=== PATIENT | female | born 1945 | race American Indian/Alaskan Native ===

== ENCOUNTER 2019-03-07 14:25 | Emergency (ER) | payer MEDICARE, SELFPAY ==
[2019-03-07 14:26] VITALS: BP 127/64; PULSE 70; RESP 16; TEMP 36.2; O2SAT 99; BMI 33.3
--- NOTE | 2019-03-07 14:30 | NURSING ---
NO OLD EKGS
--- NOTE | 2019-03-07 14:57 | EKG12_ITS ---
Test Reason : CP/WEAKNESS Blood Pressure : / mmHG Vent. Rate : 066 BPM Atrial Rate : 066 BPM P-R Int : 166 ms QRS Dur : 096 ms QT Int : 482 ms P-R-T Axes : 040 029 049 degrees QTc Int : 505 ms Normal sinus rhythm Nonspecific ST abnormality Prolonged QT Abnormal ECG Confirmed by HE YATES ([id number]), film and video editor MICHAEL MUNGUIA ([id number]) on 03/12/2019 2:06:52 PM Referred By: Confirmed By:HE YATES
--- NOTE | 2019-03-07 14:57 | RAD_ITS ---
STUDY: X-RAY CHEST REASON FOR EXAM: Female, 73 years old. Chest pain TECHNIQUE: PA and lateral views of the chest. COMPARISON: None. FINDINGS: The lungs are clear and expanded. There is no demonstrated pleural abnormality. There is moderate cardiac enlargement. Normal mediastinum and carrol. Normal visualized pulmonary arteries. Normal visualized aortic arch and descending thoracic aorta. Normal visualized thoracic spine. Normal visualized ribs, clavicles, and shoulders. There is no demonstrated abnormality of the visualized soft tissue structures of the upper abdomen. RAD/Chest PA and Lateral IMPRESSION: No active disease. Electronically Signed: Aries Stone MD at 16:16 EDT Tel , Service support ,
--- NOTE | 2019-03-07 15:00 | RAD_ITS ---
STUDY: X-RAY - LEFT HUMERUS REASON FOR EXAM: Female, 73 years old. Pain and weakness TECHNIQUE: 2 view(s) of the humerus. COMPARISON: None. FINDINGS: Normal visualized humerus. There is no demonstrated fracture or osseous destructive process. There is no demonstrated soft tissue abnormality. RAD/Humerus min 2 Views IMPRESSION: Normal x-ray examination of the humerus. Electronically Signed: Aries Stone MD at 16:15 EDT Tel , Service support ,
[2019-03-07 15:06] LABS: Absolute Lymphocyte Count 0.51 X10^3/uL (0.83-4.51); Absolute Neutrophil Count 5.4 X10^3/uL (2.0-7.7); Basophil# 0.04 X10^3/uL; Basophil% 0.6 % (0-1); Eosinophils% 1.5 % (0-5); Hematocrit 28.3 % (37-47); Hemoglobin 8.5 g/dL (12.0-15.0); Lymphocyte # 0.51 X10^3/ul (4.0); Lymphocyte % 7.6 % (19-41); Mean Corpuscular Hgb 25.1 pg (27.0-32.0); Mean Corpuscular Volume 83.7 fL (81-99); Mean Platelet Vol. 11.3 fl (6.2-12.0); Monocyte# 0.63 X10^3/uL; Monocyte% 9.4 % (0-10); NRBC Flagged by Analyzer 0 % (0-5); Neutrophil # 5.38 X10^3/uL (2.7-7.7); Neutrophil % 80.2 % (47-70); POSITIVE DIFFERENTIAL YES; Platelet Count 265 K/mm3 (150-450); RBC Distribution Width SD 45.3 fl (35.1-43.9); Red Blood Count 3.38 M/mm3 (4.2-5.4); White Blood Count 6.7 K/mm3 (4.4-11.0)
[2019-03-07 15:20] LABS: Differential Indicated SCAN CRITERIA MET
[2019-03-07 15:33] LABS: Anion Gap 6 (5-15); BUN 18 mg/dL (7-18); BUN/Creat Ratio 12.6 RATIO (10-20); Calcium,Total 8.8 mg/dL (8.5-10.1); Chloride 100 mmol/L (98-107); Creatinine, Serum 1.43 mg/dL (0.55-1.02); EST Glomerular Filtration Rate 38 mL/min (>60); Est Glom Filt Rate - Afr Amer 46 mL/min (>60); Estimated Creatinine Clearance 32.47 ml/min; Glucose 115 mg/dL (74-106); Potassium 3.1 mmol/L (3.5-5.1); Sodium Level 136 mmol/L (136-145)
[2019-03-07 15:36] LABS: Hypochromasia 2+; Platelet Estimate ADEQUATE (ADEQ); Red Cell Morphology N CYTIC NORMAL (NORM C&C)
[2019-03-07] MEDS: Metoclopramide 10 MG/2 ML Vial IV (15:43)
[2019-03-07 16:23] VITALS: BP 144/47; PULSE 59; RESP 18; O2SAT 99
--- NOTE | 2019-03-07 16:50 | CM.ED ---
Social Work Referral: Discharge Planning Informant: Dr. Shepard Met with patient and patient friend in room along with Dr. Shepard. Patient [place] and to be traveling west via RV. Dr. Shepard voicing concern of patient being medically managed while traveling. Patient denies having any medical records with patient. Dr. Shepard unable to compare labs to obtain base line for patient. Patient stating to be from [place] but to have no intentions of returning to [place]. Patient unsure if patient will settle down somewhere out west or not. Patient stating to be staying at the [facility] until April. Dr. Shepard recommending for patient to follow up with curb machine operator and establish a primary care physician for medication and medical management. Patient also not taking medication as prescribed. Patient stating to, forget to take medication. After speaking further with patient this socia worker able to identify that patient has a diagnosis of depression and sometimes just doesn't want to try in regards to taking medication. Patient denies any SI or HI. Patient reporting to have a pill box at home and to be able to fill box on own. This social work specialist encouraging patient to utilize pill box, patient voicing understanding. Patient denies any current triggers. Patient stating that patient son 30 years ago and patient has never gotten over this. This social work specialist normalizing patient emotions and grieving. Patient stating to have limited support and to be traveling out west to see daughters that, supposedly live out west. Patient reporting I have had a lot happen to me throughout life. Patient identifying traveling and art as a main coping skill for patient. This social work specialist encouraging patient to continue to work through current emotions. Patient stating to have friends/support at the [place]. This social work specialist encouraging patient to continue to utilize friends/support system at [facility] for coping as well. Dr. Shepard providing patient with PCP and Professor Of Art to follow up with. Patient plans to return to [facility] with friend. Jaydon ANDERSON, IVETH
--- NOTE | 2019-03-07 17:06 | ED.DCSUM_ITS ---
- ER Visit Summary Date of Service: 03/07/19 Chief Complaint: Left arm pain and chest pain History of Present Illness: The patient is a 73 F who reports that she lives in an and moves about the country. States that her primary care physician is in [place]. She is traveling to [place] and will be in [place] until April. She reports she has left arm pain that began 3 weeks ago. Is a sharp pain is 710 with movement 2 out of 10 rest. She is taking diclofenac without relief. She denies any trauma. No fall, MVA, or change in activity. No numbness or weakness. Patient also reports that she has left-sided chest pain that began 2 to 3 days ago. Is intermittent pain that lasts hours at a time. She describes it as heaviness. Zeta 10 at worst and 4-10 currently. Is worsened by nothing including exertion. States it is relieved by nitroglycerin. Physical Examination: Vitals: Stable. Afebrile. General: Well-nourished and well-developed. Head: Normocephalic atraumatic. Neck: Supple, no lymphadenopathy. No JVD. Nontender. Cardiovascular: Regular rate and rhythm. No murmurs. Respiratory: No respiratory distress. Clear to auscultation bilaterally. Abdominal: Soft, nontender, nondistended, normal bowel sounds. No guarding, rebound, or peritoneal signs. Back: Nontender. Extremities: Mild tenderness palpation over the left biceps. Full range of motion of her left shoulder and elbow without pain. No overlying erythema warmth to suggest infection or septic joint. She is neurovascular intact distally. 2+ radial pulse. No edema. Skin: Normal color, no rash. Neurologic: Alert and oriented ?3. Cranial nerves II through XII are intact. Normal strength and sensation. Psych: Normal affect. Test Results: EKG is sinus at 66 with a QTC of 505. There is no old EKG for comparison. Troponin is negative. Chem-7 shows a potassium 3.1, creatinine 1.43, glucose 115. CBC shows an H&H of 8.5 and 28.3, 7 neutrophils 80, lymphocytes of 8. Chest x-ray shows chronic changes. Left humerus x-ray shows no acute disease. Emergency Department Course and Treatment: I had a prolonged discussion with the patient about her lab results. She has no idea what her last hemoglobin was. She does report she is been told she is anemic in the past. She has no idea what her baseline creatinine is. She was ordered Tylenol which she refused. Treatment Plan: I had a prolonged discussion with the patient that it is not a good idea to take this kind of an approach to her medical care. She has no primary care physician or terminal supervisor cc, despite the fact that she has stents. She has asked for refills for her medications. These medications include Lopressor, Lasix, and Plavix. Given the dates on the bottles it is clear that she is taking these medications inconsistently. She has no medical records with her. At this time I do not believe the patient's pain is cardiac in etiology. However, she was given the name of Dr. Shen to follow-up within 1 week for repeat evaluation of her chest pain. She was given name of Dr. Araiza for a primary care physician to see in 3 to 5 days. I discussed her that I will not prescribe opiate medications for her arm pain. As I do not think that this is appropriate. She was also seen by case management in the emergency department. Return to the emergency department for any worsening symptoms. Disposition: To home in improved and stable condition. Impression: 1. Atypical chest pain. 2. Anemia. 3. Left arm pain. 4. Depression. 5. Medical noncompliance. This note was generated with [employer] dictation software. It may contain incorrect words, spelling, and punctuation that were not noted in review of the chart prior to signing ED Disposition - Plan for ED Patient: Disposition: Home or Assisted Living Instructions: CHEST PAIN, Uncertain Cause, MUSCLE STRAIN, Extremity Referrals: Jh Shen MD [STAFF PHYSICIAN] - 1 Week Dillan Araiza DO [STAFF PHYSICIAN] - 3-5 Days
[2019-03-07 17:29] VITALS: BP 148/57; PULSE 64; RESP 18; O2SAT 99
== END 2019-03-07 17:30 | disposition home or self-care (01) ==
LOC: ED 15:04
PROVIDERS: Emergency Provider Emergency Medicine
DX: R07.89 Other chest pain (principal); D64.9 Anemia, unspecified; M79.602 Pain in left arm; F32.9 Major depressive disorder, single episode, unspecified; Z91.14 Patient's other noncompliance with medication regimen; Z91.19 Patient's noncompliance with other medical treatment and regimen; I10 Essential (primary) hypertension; I25.10 Atherosclerotic heart disease of native coronary artery without angina pectoris; E78.00 Pure hypercholesterolemia, unspecified; J44.9 Chronic obstructive pulmonary disease, unspecified; Z95.5 Presence of coronary angioplasty implant and graft
CPT/HCPCS: 71046; 73060; 80048; 84484; 85025; 93005; 96374; 99284; A4216

== ENCOUNTER 2019-09-10 13:16 | Inpatient (IN) | payer MEDICARE, SELFPAY ==
[2019-09-10] VITALS (11 sets, daily range): BP systolic 102–193; BP diastolic 35–98; PULSE 56–76; RESP 16–30; TEMP 36.1–36.9; O2SAT 95–100; BMI 34.0; BMI 33.2
--- NOTE | 2019-09-10 13:39 | EKG12_ITS ---
Test Reason : CP/SOB Blood Pressure : / mmHG Vent. Rate : 066 BPM Atrial Rate : 066 BPM P-R Int : 192 ms QRS Dur : 088 ms QT Int : 472 ms P-R-T Axes : 053 040 037 degrees QTc Int : 494 ms Normal sinus rhythm Minimal voltage criteria for LVH, may be normal variant Prolonged QT Abnormal ECG Confirmed by YOLA DALE, FAYE ([id number]), editor index RENE GARCIA ([id number]) on 09/12/2019 1:48:48 PM Referred By: ELIZABETH Confirmed By:FAYE ACEVES MD
--- NOTE | 2019-09-10 13:47 | RAD_ITS ---
EXAM DESCRIPTION: PORTABLE AP CHEST CLINICAL HISTORY: 74 years Female, CHEST PAIN, DYSPNEA -- HX OF STENTS CHEST PAIN, DYSPNEA -- HX OF STENTS COMPARISON: Previous chest obtained on 03/07/2019 FINDINGS: The thorax is intact. The heart is mildly enlarged. The mediastinum appears to be within normal limits. A patchy pneumonic infiltrate is noted in the right lung base. The left lung appears to be normal. RAD/Chest 1 View (Portable) IMPRESSION: 1. Mild cardiomegaly 2. Patchy pneumonic infiltrate in the right lung base Electronically Signed: Bart Ingram, at 14:47 EST Tel , Service support ,
[2019-09-10 14:17] LABS: Absolute Lymphocyte Count 0.85 X10^3/uL (0.83-4.51); Absolute Neutrophil Count 5.1 X10^3/uL (2.0-7.7); Basophil# 0.09 X10^3/uL; Basophil% 1.3 % (0-1); Eosinophil# 0.11 X10^3/uL; Eosinophils% 1.6 % (0-5); Hematocrit 30.6 % (37-47); Hemoglobin 8.7 g/dL (12.0-15.0); Lymphocyte # 0.85 X10^3/ul (4.0); Lymphocyte % 12.6 % (19-41); Mean Corp Hgb Conc 28.4 g/dL (32-36); Mean Corpuscular Hgb 22.7 pg (27.0-32.0); Mean Corpuscular Volume 79.9 fL (81-99); Mean Platelet Vol. 11.2 fl (6.2-12.0); Monocyte# 0.54 X10^3/uL; NRBC Flagged by Analyzer 0 % (0-5); Neutrophil # 5.11 X10^3/uL (2.7-7.7); Neutrophil % 76.1 % (47-70); Platelet Count 278 K/mm3 (150-450); RBC Distribution Width CV 15.9 % (11.6-14.6); RBC Distribution Width SD 45.8 fl (35.1-43.9); Red Blood Count 3.83 M/mm3 (4.2-5.4); White Blood Count 6.7 K/mm3 (4.4-11.0)
[2019-09-10 14:24] LABS: Anion Gap 6 (5-15); BUN 13 mg/dL (7-18); BUN/Creat Ratio 11.9 RATIO (10-20); Chloride 101 mmol/L (98-107); Creatinine, Serum 1.09 mg/dL (0.55-1.02); EST Glomerular Filtration Rate 52 mL/min (>60); Est Glom Filt Rate - Afr Amer 63 mL/min (>60); Estimated Creatinine Clearance 41.98 ml/min; Glucose 90 mg/dL (74-106); Potassium 3.6 mmol/L (3.5-5.1); Sodium Level 135 mmol/L (136-145)
[2019-09-10] MEDS: Ipratropium/Albuterol Sulfate 3 ML AMPUL.NEB INHALATION ×2 (14:46→23:10)
--- NOTE | 2019-09-10 14:52 | CT_ITS ---
STUDY: CTA CHEST REASON FOR EXAM: Female, 74 years old. DYSNEA, NAUSEA, HEAVINESS/STABBING CP X 3 DAYS WORSENED TODAY. RADIATION DOSAGE (If Supplied By Facility): CTDIvol = ( 12.62 ) mGy, DLP = ( 563.18 ) mGycm TECHNIQUE: The examination was performed with the intravenous administration of IV 100mL Isovue-370. Post-processing of the angiographic images was performed, with multiplanar reformation and 3D reconstruction. Individualized dose optimization techniques were used for this CT. COMPARISON: None. FINDINGS: Normal enhancement of the main pulmonary artery and right and left pulmonary arteries. Normal enhancement of the bilateral peripheral pulmonary arteries. There is no demonstrated pulmonary embolism. Normal thoracic aorta and visualized great vessels. There is no demonstrated aortic dissection. There is a small pericardial effusion. Normal mediastinum. Normal hilar regions. Normal visualized trachea and bronchi. The lungs are well expanded. Normal pulmonary parenchyma. Large bilateral pleural effusions with bibasilar atelectasis. Normal chest wall structures. Multiple healed bilateral rib fractures. Normal visualized upper abdomen. CT/CTA Chest W/WO Contrast IMPRESSION: 1. Normal CTA chest examination, without a demonstrated pulmonary embolism or arterial dissection. 2. Large bilateral pleural effusions with bibasilar atelectasis. 3. Small pericardial effusion. Electronically Signed: Aries Stone MD at 15:45 EST Tel , Service support ,
--- NOTE | 2019-09-10 16:07 | ED.VIS.GEN ---
History of Present Illness Chief Complaint: Chest Pain Informant: Patient Narrative: Patient presents the emergency department shortness of breath. She notes a chest tightness. Symptoms are worse when she attempts to lay flat. She states she just moved here but had been 1 area before. 1 month ago she states she is in [facility] and states that she was given home oxygen. Unclear of exactly what reason she needed home oxygen. States she wears 3 L. She tells me this after stating that she wears 30 L. She states she has not had any fevers or cough. No swelling of the legs. She does have a history of coronary artery disease but no congestive heart failure. She does take HCTZ. He has a history of asthma and a remote history of smoking. No known malignancy. Reviewing the chart reveals a history of emphysema, congestive heart failure, coronary artery disease. Past Medical History - Allergies and Home Meds Allergies/Adverse Reactions: Allergies No Known Allergies Allergy (Verified 09/10/19 13:21) Primary Care Physician: Deon Alberts MD [Primary Care Provider] - Smoking Status: Former smoker Review of Systems General: Denies: Chills, Fever, Sweats Eyes: Denies: Visual changes - bilaterally, Diplopia ENT: Denies: Rhinorrhea, Sore throat Cardiovascular: Denies: Chest pain, Palpitations Respiratory: Reports: Dyspnea, Dyspnea on exertion, Orthopnea. Denies: Cough Gastrointestinal: Denies: Abdominal pain, Nausea, Vomiting, Diarrhea, Melena, Hematochezia Genitourinary: Denies: Dysuria, Hematuria, Frequency Musculoskeletal: Denies: Back pain, Extremity Pain Skin: Denies: Rash, Wounds Neurological: Denies: Headache, Weakness, Numbness Physical Exam Vital Signs/Narrative: Vital Signs Temp Pulse Resp BP Pulse Ox 09/10/19 15:15 56 L 20 H 175/88 H 96 09/10/19 14:47 76 16 97 09/10/19 13:19 97 F L 69 30 H 193/83 H 99 09/10/19 13:18 193/83 H 09/10/19 13:17 97 F L 69 30 H 99 Inital Vital Signs reviewed: Yes General: Well nourished, Well developed, No Acute Distress Head: Normocephalic, Atraumatic Eyes: Perrl, EOMI ENT: Moist mucous membranes, No rhinorrhea Neck: Supple, Nontender Cardiovascular: Regular rate, Regular rhythm, No murmurs Respiratory: No distress, Decreased Air Movement, Chest tenderness - Upper chest tenderness Abdomen: Soft, Nontender, Nondistended, Normal bowel sounds Back: Nontender, Normal Inspection Extremities: Nontender, No edema Skin: Normal color, No rash Neurological: Alert, Oriented x3, Cranial nerves II-XII grossly intact, Normal Strength, Normal Sensation Psychological: Normal affect, Normal Mood Diagnostic/Tx/Re-eval - Rhythm Strip Rhythm Strip: Sinus Rhythm - EKG demonstrated normal sinus rhythm at a rate of 66. This appears grossly unchanged from 07 March 2019. - Medical Decision Making History is inconsistent. She has bilateral pleural effusions possible pericardial effusion. I do not know if this is CHF related. She is dyspneic at rest. She has home oxygen. Do not have any immediate access to recent echocardiograms or any lung studies. Her plan is to bring into the hospital tried obtain old records from [facility]. ED Disposition - Plan for ED Patient: Disposition: Acute Care Hospital [facility] Diagnosis: Dyspnea, Bilateral pleural effusion Referrals: Deon Alberts MD [Primary Care Provider] -
[2019-09-10 16:35] LABS: AST(SGOT) 10 U/L (15-37); Alanine Aminotransfer ALT/SGPT 17 U/L (13-56); Alkaline Phosphatase 121 U/L (45-117); Globulin 3.4 g/dL (2.2-4.2); Protein, Total 7.4 g/dL (6.4-8.2)
[2019-09-10 16:44] LABS: BNP,B-Type NATRIURETIC PEPTIDE 360.2 pg/mL (0-100)
[2019-09-10] MEDS: Furosemide 100 MG/10 ML Vial 60 MG IV (17:05)
[2019-09-10 17:10] LABS: Prothrombin Time (Protime)PT. 13.3 SECONDS (11.7-14.9)
[2019-09-10 17:11] LABS: Partial Thromboplast Time 27.3 Seconds (24.1-36.2)
--- NOTE | 2019-09-10 17:38 | PCM.HP.STD ---
Problem List (1) CHF exacerbation Status: Acute Qualifiers: Heart failure type: unspecified Qualified Code(s): I50.9 - Heart failure, unspecified (2) Bilateral pleural effusion Status: Acute (3) Pericardial effusion Status: Acute (4) COPD (chronic obstructive pulmonary disease) Status: Chronic Qualifiers: COPD type: unspecified COPD Qualified Code(s): J44.9 - Chronic obstructive pulmonary disease, unspecified (5) Chronic respiratory failure with hypoxia Status: Chronic (6) HTN (hypertension) Status: Chronic Qualifiers: Hypertension type: essential hypertension Qualified Code(s): I10 - Essential (primary) hypertension (7) HLD (hyperlipidemia) Status: Chronic Qualifiers: Hyperlipidemia type: unspecified Qualified Code(s): E78.5 - Hyperlipidemia, unspecified (8) CAD (coronary artery disease) Status: Chronic Qualifiers: Coronary Disease-Associated Artery/Lesion type: unspecified vessel or lesion type [place] vs. transplanted heart: unspecified whether [place] or transplanted heart Associated angina: angina presence unspecified Qualified Code(s): I25.10 - Atherosclerotic heart disease of [place] coronary artery without angina pectoris (9) OLEG (obstructive sleep apnea) Status: Chronic (10) Anxiety and depression Status: Chronic (11) Former tobacco use Status: Acute (12) Dyspnea Status: Chronic History of Present Illness Date of Admission: 09/10/19 Chief Complaint: Dyspnea, orthopnea The patient is a 74 y/o F w/ PMHx: Chronic microcytic anemia, Chronic COPD w/ Chronic Hypoxic Respiratory Failure, History of Prior Heavy Tobacco use, HTN, HLD, CAD s/p PCI x 2 most recently 10/2017, OLEG non-compliant with CPAP, Obesity, Pulmonary HTN, Depression and Anxiety, denied history of CHF although chart reported history prior who presents to the [facility] ED on 09/10/19 with history of recently moving from [place] ~ 1 month prior, notes she had been recently placed on 3L continuous oxygen per her physician although unclear why and not great historian who notes increased dyspnea above baseline over the last 3 days, more severe with any exertion with significant orthopnea although no significant weight gain prompting eventual ED presentation. Work-up in the ED included T 97, heart rate 69, BP initially 193/83, respiratory rate 30, 96% on 2 L nasal cannula, CBC with WC 6.7, hemoglobin six 8.7, platelet 278 with no significant left shift, unremarkable coags, CMP with sodium 135, BUN/creatinine 13/1.09, troponin less than 0.015, BNP 360.2, x-ray with mild cardiomegaly with questionable pneumonic infiltrate-like right lung base however follow-up CTPA with no demonstrated PE or arterial dissection with a large bilateral pleural effusions with bibasilar atelectasis and a small pericardial effusion, EKG was sinus rhythm unchanged from prior following ED visit with no acute evidence of ischemia. Patient states she last had Plavix on 09/09/2019. In the ED following discussions with the ED physician patient administered Lasix 60 mg IV x1 as well as DuoNeb therapy x1. Past Medical History Past Medical History (Chronic Problems): Chronic Problems Dyspnea (Chronic) COPD (chronic obstructive pulmonary disease) (Chronic) Chronic respiratory failure with hypoxia (Chronic) HTN (hypertension) (Chronic) HLD (hyperlipidemia) (Chronic) CAD (coronary artery disease) (Chronic) OLEG (obstructive sleep apnea) (Chronic) Anxiety and depression (Chronic) Allergies No Known Allergies Allergy (Verified 09/10/19 13:21) Home Medications: Ambulatory Orders Medication Instructions Recorded Budesonide/Formoterol 160/4.5 2 puff INHALATION BID 09/10/19 [Symbicort 160/4.5 Mcg Inhaler (SP)] Clopidogrel Bisulfate [Plavix] 75 mg PO DAILY 09/10/19 Diclofenac [Voltaren] 75 mg PO DAILY 09/10/19 Hydrochlorothiazide 12.5 mg PO DAILY 09/10/19 Ipratropium/Albuterol Respimat 1 puff INHALATION 4X/DAY 09/10/19 [Combivent Respimat Inhal Naselle] Metoprolol Tartrate [Lopressor 25 mg PO DAILY 09/10/19 (Beta Roni)] Nitroglycerin 0.4 mg SL PRN PRN 09/10/19 Omeprazole 40 mg PO DAILY 09/10/19 Paroxetine [Paxil] 20 mg PO DAILY 09/10/19 Ranitidine [Zantac] 150 mg PO DAILY 09/10/19 Surgical History: - - PCI x2 most recently 10/2017, tonsillectomy, appendectomy, cholecystectomy, hysterectomy. 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 Smoking Status: Former smoker - Quit cigarette tobacco usage approximately 30 years prior with prior to this a 3 pack/day history since she was in her late 20s. Tobacco Use: Non-smoker Alcohol: None Drugs: None - *Family History Maternal History Items: - - Patient notes a maternal family history of heart disease as well as cancer, notes unclear of cancer type, past when she was only 5 years old. Paternal History Items: - - Patient notes a paternal family history of heart disease as well as cancer, specifically stomach cancer. Review of Systems Constitutional: Reports: Malaise, Weakness, Fatigue. Denies: Anorexia, Chills, Fever, Weight Change HEENT: Denies: Head Aches, Sinus Congestion, Sinus Drainage Cardiovascular: Reports: Edema, Orthopnea. Denies: Chest Pain, Chest Pressure, Chest Tightness, Heaviness, Light Headedness, Palpitations, Syncope Respiratory: Denies: Cough, Shortness of breath at rest, Sputum production Gastrointestinal: Denies: Abdominal Pain, Nausea, Vomiting Genitourinary: Denies: Dysuria Musculoskeletal: Reports: Back Pain, Joint Pain. Denies: Joint Tenderness Skin: Denies: Rash, Wounds Neurological: Denies: Numbness, Tingling, Focal weakness Psychiatric: Reports: Anxiety, Depression. Denies: Homicidal Ideations, Suicidal Ideations Hematologic/ Lymphatic: Reports: Anemia, Easy Bruising, Easy Bleeding VTE Information - Inpt Only VTE Present on Admission: No VTE Mechan Device Prophylaxis: SCD's VTE Pharm Prophylaxis ordered?: No Reason prophylaxis not ordered:: Medical Contraindication Patient Problems: Active and Suspected Problems Bilateral pleural effusion (Acute) Pericardial effusion (Acute) Former tobacco use (Acute) CHF exacerbation (Acute) Subjective: Seated upright in ED bed, fatigued appearance, mildly increased respiratory rate, worse with exertion. Objective: Physical Examination: General: awake, alert, oriented x 3 and cooperative, seated upright in ED bed, fatigued appearance, no obvious distress but still increased respiratory rate. Skin: normal color, turgor, no icterus, cyanosis. HEENT: AT/NC, EOMI, PERRLA, mildly dry MM, no carotid bruits, difficult to discern JVD secondary to thickened neck. Lungs: Significantly diminished breath sounds throughout, greater bilateral bases, mild rales bases, no obvious rhonchi or wheezing, mildly increased respiratory rate but no significant distress noted. Heart: Bradycardic with regular rhythm; no gallop, rub audible. Abdomen: soft, obese, NTTP, ND, normal BS, no HSM. Extremities: no cyanosis, clubbing, mild ankle nonpitting edema. Neurological: patient awake, alert, oriented x 3; cognitive function intact; pupils equally reactive to light and accomodation; cranial nerves II-XII grossly normal, moving all 4 extremities, no focal deficits, strength severely global decrease secondary to acute presentation. Psychiatric: affect appears fatigued, no acute evidence of depressive or anxiety feelings. - Physical Exam Vitals/I&O's: Vital Signs Temp Pulse Resp BP Pulse Ox 97 F L 61 20 H 185/98 H 100 09/10/19 13:19 09/10/19 17:06 09/10/19 17:06 09/10/19 16:18 09/10/19 17:06 Oxygen Flow Rate (L/min) 2 Oxygen Delivery Method Nasal Cannula Weight: 204 lb 9.423 oz Body Mass Index (BMI) 34.0 Laboratory Results 09/10/19 11:57: WBC 6.7, RBC 3.83 L, Hgb 8.7 L, Hct 30.6 L, MCV 79.9 L, MCH 22.7 L, MCHC 28.4 L, RDW Std Deviation 45.8 H, RDW Coeff of Ganesh 15.9 H, Plt Count 278, MPV 11.2, Immature Gran % (Auto) 0.400, Neut % (Auto) 76.1 H, Lymph % (Auto) 12.6 L, Green % (Auto) 8.0, Eos % (Auto) 1.6, Baso % (Auto) 1.3 H, Absolute Neuts (auto) 5.1, Absolute Lymphs (auto) 0.85, Nucleated RBC % 0 09/10/19 11:57: Sodium 135 L, Potassium 3.6, Chloride 101, Carbon Dioxide 28.0, Anion Gap 6, BUN 13, Creatinine 1.09 H, Estim Creat Clear Calc 41.98, Est GFR (MDRD) Af Amer 63, Est GFR (MDRD) Non-Af 52 L, BUN/Creatinine Ratio 11.9, Glucose 90, Calcium 9.0, Troponin I < 0.015 09/10/19 11:57: Total Bilirubin 0.70, Direct Bilirubin 0.10, AST 10 L, ALT 17, Alkaline Phosphatase 121 H, Total Protein 7.4, Albumin 4.0, Globulin 3.4 09/10/19 11:57: B-Natriuretic Peptide 360.2 H 09/10/19 15:12: PT 13.3, INR 1.0, APTT 27.3 Assessment/Plan All Active Problems Bilateral pleural effusion (Acute) Pericardial effusion (Acute) Former tobacco use (Acute) CHF exacerbation (Acute) The patient is a 74 y/o F w/ PMHx: Chronic microcytic anemia, Chronic COPD w/ Chronic Hypoxic Respiratory Failure, History of Prior Heavy Tobacco use, HTN, HLD, CAD s/p PCI x 2 most recently 10/2017, OLEG non-compliant with CPAP, Obesity, Pulmonary HTN, Depression and Anxiety, denied history of CHF although chart reported history prior who presents to the [facility] ED on 09/10/19 with history of recently moving from [place] ~ 1 month prior, notes she had been recently placed on 3L continuous oxygen per her physician although unclear why and not great historian who notes increased dyspnea above baseline over the last 3 days, more severe with any exertion with significant orthopnea although no significant weight gain prompting eventual ED presentation. 1. Dyspnea secondary to Bilateral Large Pleural Effusions and Small Pericardial Effusion, complicated by underlying chronic COPD with chronic hypoxic respiratory failure, questionable CHF Exacerbation, Unclear Type: Patient administered IV lasix in the ED, will admit to PCU, maintain on cardiac telemetry, obtain cardiac enzyme series, obtain serial EKGs, continue IV lasix diuresis pending ability for thoracentesis especially given Plavix usage, monitor I/Os, maintain on intake restriction, continue medical therapy w/ metoprolol, not on DIEGO inhibitor or ARB, not on statin therapy. Will obtain TSH and magnesium level. Will obtain echocardiogram. Will request a.m. thoracentesis with diagnostic assessment labs with n.p.o. status after midnight if amenable given Plavix use as last 09/09/2019; however, may necessitate transition to 09/12/2019. BNP not markedly elevated, not markedly elevated suspicion for underlying failure but given presentation will continue evaluation in addition to attempted thoracentesis. 2. Chronic COPD w/ Chronic Hypoxic Respiratory Failure: Will maintain on oxygen with wean as tolerated to room air/home oxygen supplementation, continue ATC duonebs, PRN albuterol, HOB, IS parameters. 3. CAD: Status post PCI x2 most recently 10/2017, will continue metoprolol, not on statin therapy, temporarily holding Plavix for planned thoracentesis, resume once appropriate. 4. Chronic microcytic anemia: Patient hemoglobin 8.7, similar prior, MCV 79.9, not on iron supplementation, will obtain iron panel, ferritin level. 5. Anxiety and depression: We will continue home Paxil regimen. 6. Hypertension: Continue home regimen including metoprolol, PRN hydralazine. 7. Hyperlipidemia: Not on regimen, obtain FLP in AM. 8. Obesity: Weight loss and lifestyle changes encouraged. 9. OLEG: Noncompliant with CPAP, offered and declined upon presentation. 10. Obesity: Weight loss and lifestyle changes encouraged. 11. GERD: We will continue patient home PPI. 12. DVT prophylaxis: SCDs, defer chemoprophylaxis for planned thoracentesis as noted, if continued hold consider initiation. 13. CODE status: Patient ISI is her good friend Melia and living will is currently in place. Discussed CODE status at length including difference between FULL code, DNR-CCA and DNR-CC status. Following discussions about the differences in these status, requested DNR CCA, no intubation status. Advanced Care Planning Face to Face Time: 16 minutes. Code Visit Inpatient E&M: 83687 Init Hosp L3 Procedures: 25330 Advncd Care Plan 30 Min
--- NOTE | 2019-09-10 17:59 | ECHOD_ITS ---
Reason For Study: CHF Procedure This was a 2D Doppler, Color Flow transthoracic echocardiogram. The exam was of adequate technical quality. Exam performed portable in patient room. Left Ventricle Normal LV size. Mild concentric left ventricular hypertrophy. Left ventricular systolic function is normal. The estimated ejection fraction is 60 %. There is evidence of diastolic dysfunction. No regional wall motion abnormalities noted. Right Ventricle Normal RV size. Normal systolic function. Atria The left atrium is mildly enlarged. Normal right atrium. No doppler evidence for ASD. Mitral Valve There is no mitral annular calcification. Normal mitral valve. Mild (1+) mitral valve insufficiency. Tricuspid Valve Normal tricuspid valve. Mild to moderate (1-2+) tricuspid valve insufficiency. Right ventricular systolic pressure estimated to be 41 mmHg. Aortic Valve Trisinus/trileaflet aortic valve. Mild focal aortic valve calcification. Mild aortic stenosis. Mild (1+) aortic valve insufficiency. Pulmonic Valve The pulmonic valve is not well visualized. Trivial pulmonic valve insufficiency. Great Vessels Normal sized aortic root. Pericardium/Pleural Trivial to small pericardial effusion. There are no echocardiographic indications of cardiac tamponade. MMode/2D Measurements & Calculations LVIDd: 4.8 cm IVSd: 1.4 cm LVOT diam: 2.0 cm LVIDs: 3.2 cm LVPWd: 1.4 cm LVOT area: 3.1 cm2 RVDd: 4.2 cm FS: 34.5 % LA dimension: 4.3 cm LAV(MOD-bp): 80.9 ml LA A4 area: 24.0 cm2 LAV(MOD-bp) Indexed: 41.5 ml/m2 LAV(MOD-sp2): 78.0 ml LAV(MOD-sp4): 72.0 ml RA A4 area: 21.3 cm2 Time Measurements MV dec time: 0.38 sec Doppler Measurements & Calculations MV E max arsenio: 59.1 cm/sec Lat Peak E' Arsenio: 5.0 cm/sec Med Peak E' Arsenio: 4.0 cm/sec MV A max arsenio: 71.6 cm/sec E/E' lat: 11.9 E/E' med: 14.8 MV E/A: 0.83 MV V2 max: 80.9 cm/sec MV P1/2t max arsenio: 68.7 cm/sec Ao V2 max: 322.9 cm/sec MV max P.6 mmHg MV P1/2t: 117.1 msec Ao max P.7 mmHg MV V2 mean: 43.8 cm/sec MV dec slope: 171.8 cm/sec2 Ao V2 mean: 198.0 cm/sec MV mean P.89 mmHg Ao mean P.0 mmHg MV V2 VTI: 24.6 cm MVA(P1/2t): 1.9 cm2 Ao V2 VTI: 72.5 cm MVA(VTI): 3.7 cm2 EDGAR(I,D): 1.3 cm2 EDGAR(V,D): 1.4 cm2 AI max arsenio: 391.0 cm/sec LV V1 max: 142.7 cm/sec SV(LVOT): 91.3 ml AI max P.5 mmHg LV V1 max P.1 mmHg LV V1 mean P.3 mmHg AI dec slope: 243.3 cm/sec2 LV V1 mean: 81.2 cm/sec AI P1/2t: 470.7 msec LV V1 VTI: 29.3 cm PA V2 max: 120.4 cm/sec TR max arsenio: 309.1 cm/sec TR max P.2 mmHg Interpretation Summary Left ventricular systolic function is normal. The estimated ejection fraction is 60 %. Mild concentric left ventricular hypertrophy. The left atrium is mildly enlarged. Mild (1+) mitral valve insufficiency. Mild to moderate (1-2+) tricuspid valve insufficiency. Mild aortic stenosis. Mild (1+) aortic valve insufficiency. Trivial pulmonic valve insufficiency. Trivial to small pericardial effusion. There are no echocardiographic indications of cardiac tamponade. Right ventricular systolic pressure estimated to be 41 mmHg. There is evidence of diastolic dysfunction. Ordering Physician: Chelle Roman Referring Physician: Jayce Alberts Performed By: Steve Gonzalez RCS
[2019-09-10 18:33] LABS: Magnesium 2.2 mg/dL (1.6-2.6); Thyroid Stim Hormone (TSH) 2.67 uIU/mL (0.358-3.74)
[2019-09-10 19:06] LABS: ALB/GLOB Ratio 1.2 RATIO (0.9-2.4); Ferritin 14 ng/mL (8-252); Globulin 3.3 g/dL (2.2-4.2); Iron 20 ug/dL (50-170); Iron Binding Capacity,Total 578 ug/dL (250-450); LDH 276 U/L (84-246); PERCENT IRON SATURATION 3.5 % (15.0-55.0); Protein, Total 7.2 g/dL (6.4-8.2)
[2019-09-10] MEDS: Furosemide 40 MG/4 ML Vial IV (21:13)
[2019-09-11] VITALS (14 sets, daily range): BP systolic 113–156; BP diastolic 41–56; PULSE 53–64; RESP 16–22; TEMP 36.7–36.8; O2SAT 93–100
[2019-09-11] MEDS: Morphine 2 MG/ML Syringe IV ×4 (03:23→20:41)
--- NOTE | 2019-09-11 05:55 | EKG12_ITS ---
Test Reason : AM EKG Blood Pressure : / mmHG Vent. Rate : 063 BPM Atrial Rate : 063 BPM P-R Int : 176 ms QRS Dur : 090 ms QT Int : 506 ms P-R-T Axes : 044 037 048 degrees QTc Int : 517 ms Normal sinus rhythm Prolonged QT Abnormal ECG When compared with ECG of 10-SEP-2019 13:21, MANUAL COMPARISON REQUIRED, DATA IS UNCONFIRMED Confirmed by HE YATES ([id number]), commissioning editor MICHAEL MUNGUIA ([id number]) on 09/12/2019 3:15:00 PM Referred By: DR COWAN Confirmed By:HE YATES
--- NOTE | 2019-09-11 07:00 | US_ITS ---
STUDY: SUPERFICIAL ULTRASOUND - REASON FOR EXAM: Female, 74 years old. PLEURAL EFFUSION TECHNIQUE: A superficial ultrasound was performed with real-time and static garner-scale imaging. COMPARISON: Previous CT of the chest obtained on 09/10/2019 FINDINGS: Cervico-occipital and transverse scans of both lung bases were performed utilizing real-time sector scanner. Only a small amount of pleural effusion is noted in both lung bases which has considerably decreased in amount since the previous CT obtained on 09/10/2019. This represents resolving bibasilar pleural effusions and they are so small it would be difficult to aspirate. The patient''s doctor was consulted and the thoracentesis was not performed US/Chest IMPRESSION: Only a tiny amount of pleural effusion was noted in both lung bases which has considerably decreased when compared with the previous CT of the chest obtained on 09/10/2019. For this reason, a thoracentesis was not performed. Electronically Signed: Bart Ingram, at 14:51 EST Tel , Service support ,
[2019-09-11 07:22] LABS: Absolute Lymphocyte Count 0.61 X10^3/uL (0.83-4.51); Absolute Neutrophil Count 3.4 X10^3/uL (2.0-7.7); Basophil# 0.06 X10^3/uL; Basophil% 1.3 % (0-1); Eosinophil# 0.21 X10^3/uL; Eosinophils% 4.4 % (0-5); Hematocrit 27.9 % (37-47); Hemoglobin 7.9 g/dL (12.0-15.0); Lymphocyte # 0.61 X10^3/ul (4.0); Lymphocyte % 12.9 % (19-41); Mean Corp Hgb Conc 28.3 g/dL (32-36); Mean Corpuscular Hgb 22.4 pg (27.0-32.0); Mean Corpuscular Volume 79.3 fL (81-99); Mean Platelet Vol. 12.1 fl (6.2-12.0); Monocyte# 0.48 X10^3/uL; Monocyte% 10.1 % (0-10); NRBC Flagged by Analyzer 0 % (0-5); Neutrophil # 3.35 X10^3/uL (2.7-7.7); Neutrophil % 70.9 % (47-70); Platelet Count 232 K/mm3 (150-450); RBC Distribution Width CV 16.2 % (11.6-14.6); RBC Distribution Width SD 46.9 fl (35.1-43.9); Red Blood Count 3.52 M/mm3 (4.2-5.4); White Blood Count 4.7 K/mm3 (4.4-11.0)
[2019-09-11] MEDS: Ipratropium/Albuterol Sulfate 3 ML AMPUL.NEB INHALATION ×3 (07:24→18:56)
[2019-09-11 07:50] LABS: Anion Gap 6 (5-15); BUN 14 mg/dL (7-18); BUN/Creat Ratio 13.1 RATIO (10-20); Calcium,Total 8.6 mg/dL (8.5-10.1); Chloride 98 mmol/L (98-107); Cholesterol 206 mg/dL (200); Creatinine, Serum 1.07 mg/dL (0.55-1.02); EST Glomerular Filtration Rate 54 mL/min (>60); Est Glom Filt Rate - Afr Amer 65 mL/min (>60); Estimated Creatinine Clearance 42.76 ml/min; Glucose 88 mg/dL (74-106); High Density Lipoprotein 44 mg/dL; Potassium 3.1 mmol/L (3.5-5.1); Sodium Level 138 mmol/L (136-145); Triglycerides 152 mg/dL; Very Low Density Lipoprotein 30 mg/dL (5-40)
[2019-09-11] MEDS: Famotidine 20 MG Tablet PO (09:56)
[2019-09-11] MEDS: Paroxetine 20 MG Tablet PO (09:56)
[2019-09-11] MEDS: Pantoprazole Sodium 40 MG Tablet PO (09:56)
[2019-09-11] MEDS: Metoprolol Tartrate 25 MG Tablet PO (09:57)
[2019-09-11] MEDS: Furosemide 40 MG/4 ML Vial IV ×2 (10:00→18:09)
[2019-09-11] MEDS: 0.9% Saline Lock 10 ML Syringe IV ×6 (10:01→20:41)
[2019-09-11 10:03] LABS: Magnesium 2.1 mg/dL (1.6-2.6)
--- NOTE | 2019-09-11 11:18 | CASEMGMT ---
RN CM Assessment Introduced role of RN CM to patient.? Patient is alert, oriented and able?to participate in RN CM Assessment. ?Care providers, pharmacy, and demographics verified. Presentation: Increased dyspnea above baseline Admit Dx: BL Lg Pleural effusions, ? CHF Re-Admit: No Barriers/Issues: None PCP: Jayce Alberts (1st appt 10/15/2019) Specialists: None [facility]:?Yes ?LNOK: Friend Melia Dudley LW/HPOA: Believes has both HPOA/LW completed, states that HPOA was notarized but only one paper and would like to complete advanced directives again here with SW. MANOLO Bennett made aware. Living Arrangements:? Lives alone in a gnd level apartment, 1 Lg step to enter. ADL?s: Independent with ambulation and ADLs Transportation: Patient drives DME: States she is supposed to be on home O2 3L continuous but states turned in her O2 equipment in [place] before moving. CPAP- missing the bottom and does not use. Nebulizer. HHC: None SNF: None Goal: Home and states needs home O2, In network DME list given, preference Patricia. Denies any other issues, concerns, or needs with DC planning at this time. Aware CM remains available for any emerging needs. DC PLAN: DC with possible home O2. ATIF Wright
--- NOTE | 2019-09-11 11:58 | CASEMGMT ---
Social Work Pt requesting information on advance directives. SW met with pt and explained living will and health care POA. Pt wishing to complete at this time and SW assisted with this. Copy placed on pt chart and original given to patient. AICHA Rodriguez
--- NOTE | 2019-09-11 12:40 | PN_ITS ---
<Roberto Iglesias - Last Filed: 09/11/19 12:40> Patient Problems: Active and Suspected Problems Bilateral pleural effusion (Acute) Pericardial effusion (Acute) Former tobacco use (Acute) CHF exacerbation (Acute) Reason for Visit: Shortness of breath. Subjective: Patient with ongoing shortness of breath, conversational dyspnea, short of breath just lying talking to me in bed. More short of breath up and ambulating. No significant lower extremity edema. She does report orthopnea and paroxysmal nocturnal dyspnea. She has had intermittent chest pain. No palpitations, no lightheadedness or dizziness. She states that she is supposed to be on CPAP, she does not know her settings, and she does not have a functional machine at home. She also states that she was on oxygen before moving to [place] however she did not bring any equipment with her and she has not been using oxygen. Vitals/I&O's: Vital Signs Temp Pulse Resp BP Pulse Ox 98.0 F 57 L 18 119/43 L 95 09/11/19 09:00 09/11/19 11:00 09/11/19 10:46 09/11/19 09:57 09/11/19 10:46 Oxygen Flow Rate (L/min) 3 Oxygen Delivery Method Nasal Cannula Weight: 193 lb 12.581 oz Body Mass Index (BMI) 33.2 Intake and Output for Last 24 Hours 09/09/19 09/10/19 09/11/19 23:59 23:59 23:59 Intake Total 410 / 410 Output Total 950 / 950 Balance -540 / -540 General: Alert, Oriented x3, Cooperative HEENT: Atraumatic, PERRLA, EOMI, Normocephalic Neck: Supple, No JVD, Negative Carotid Bruits Lungs: Clear to auscultation, Diminished, Short of Breath Cardiovascular: Regular rate, No murmurs Abdomen: Bowel Sounds Present, Soft, Non Tender Extremities: No edema, Capillary Refill Less than 3 Seconds Skin: No rashes, No breakdown Musculoskeletal: No Tenderness to Palpation of Joints or Extremities Neurological: Cranial nerves II-XII grossly intact Psych/Mental Status: Normal Affect, Appropriate, Alert and oriented to time, place, person, mood and affect Laboratory Results 09/10/19 11:57: WBC 6.7, RBC 3.83 L, Hgb 8.7 L, Hct 30.6 L, MCV 79.9 L, MCH 22.7 L, MCHC 28.4 L, RDW Std Deviation 45.8 H, RDW Coeff of Ganesh 15.9 H, Plt Count 278, MPV 11.2, Immature Gran % (Auto) 0.400, Neut % (Auto) 76.1 H, Lymph % (Auto) 12.6 L, Pend[place] % (Auto) 8.0, Eos % (Auto) 1.6, Baso % (Auto) 1.3 H, Absolute Neuts (auto) 5.1, Absolute Lymphs (auto) 0.85, Nucleated RBC % 0 09/10/19 11:57: Sodium 135 L, Potassium 3.6, Chloride 101, Carbon Dioxide 28.0, Anion Gap 6, BUN 13, Creatinine 1.09 H, Estim Creat Clear Calc 41.98, Est GFR (MDRD) Af Amer 63, Est GFR (MDRD) Non-Af 52 L, BUN/Creatinine Ratio 11.9, Glucose 90, Calcium 9.0, Troponin I < 0.015 09/10/19 11:57: Total Bilirubin 0.70, Direct Bilirubin 0.10, AST 10 L, ALT 17, Alkaline Phosphatase 121 H, Total Protein 7.4, Albumin 4.0, Globulin 3.4 09/10/19 11:57: B-Natriuretic Peptide 360.2 H 09/10/19 11:57: Magnesium 2.2, TSH 2.67 09/10/19 11:57: Iron 20 L, TIBC 578 H, Iron Saturation 3.5 L, Ferritin 14, Lactate Dehydrogenase 276 H, Total Protein 7.2, Globulin 3.3, Albumin/Globulin Ratio 1.2 09/10/19 15:12: PT 13.3, INR 1.0, APTT 27.3 09/10/19 18:54: Troponin I < 0.015 09/10/19 21:40: Troponin I < 0.015 09/11/19 06:28: WBC 4.7, RBC 3.52 L, Hgb 7.9 L, Hct 27.9 L, MCV 79.3 L, MCH 22.4 L, MCHC 28.3 L, RDW Std Deviation 46.9 H, RDW Coeff of Ganesh 16.2 H, Plt Count 2 32, MPV 12.1 H, Immature Gran % (Auto) 0.400, Neut % (Auto) 70.9 H, Lymph % (Auto) 12.9 L, Pendleton % (Auto) 10.1 H, Eos % (Auto) 4.4, Baso % (Auto) 1.3 H, Absolute Neuts (auto) 3.4, Absolute Lymphs (auto) 0.61 L, Nucleated RBC % 0 09/11/19 06:28: Sodium 138, Potassium 3.1 L, Chloride 98, Carbon Dioxide 34.0 H, Anion Gap 6, BUN 14, Creatinine 1.07 H, Estim Creat Clear Calc 42.76, Est GFR (MDRD) Af Amer 65, Est GFR (MDRD) Non-Af 54 L, BUN/Creatinine Ratio 13.1, Glucose 88, Calcium 8.6, Triglycerides 152, Cholesterol 206 H, LDL Cholesterol 132 H, VLDL Cholesterol 30, HDL Cholesterol 44 09/11/19 06:28: Magnesium 2.1 Current Medications Acetaminophen (Tylenol) 650 mg PO Q6H PRN PRN PRN Reason: Pain Score 1-10/Temp > 100.7 F Al Hydroxide/Mg Hydroxide (Mylanta Ii) 30 ml PO Q6H PRN PRN PRN Reason: Gastric Burning Albuterol Sulfate (Ventolin Aerosols) 2.5 mg INHALATION Q2H PRN PRN PRN Reason: dyspnea, wheezing Albuterol/Ipratropium (Duoneb) 3 ml INHALATION Q4HWA.RT [facility] Last Admin: 09/11/19 10:46 Dose: 3 ml Documented by: Dextrose (D50w Syringe) 0 gm IV X1 PRN; Protocol PRN Reason: Hypoglycemia Famotidine (Pepcid) 20 mg PO DAILY [facility] Last Admin: 09/11/19 09:56 Dose: 20 mg Documented by: Furosemide (Lasix) 40 mg IV BIDLX [facility] Last Admin: 09/11/19 10:00 Dose: 40 mg Documented by: Glucagon () 1 mg IM .X1 PRN PRN Reason: Hypoglycemia Guaifenesin (Robitussin) 20 ml PO Q4H PRN PRN PRN Reason: COUGH Hydralazine HCl (Apresoline Iv) 10 mg IV Q4H PRN PRN PRN Reason: SBP > 160 Iron Sucrose 200 mg/ Sodium (Chloride) 110 mls @ 220 mls/hr IV DAILY [facility] Stop: 09/12/19 10:29 Last Infusion: 09/11/19 11:00 Dose: Infused Documented by: Magnesium Hydroxide (Milk Of Magnesia) 30 ml PO DAILY PRN PRN PRN Reason: Constipation Melatonin (Melatonin) 3 mg PO QHS PRN PRN PRN Reason: INSOMNIA Metoprolol Tartrate (Lopressor (Beta Roni)) 25 mg PO DAILY [facility] Last Admin: 09/11/19 09:57 Dose: 25 mg Documented by: Morphine Sulfate () 2 mg IV Q3H PRN PRN PRN Reason: Pain Score 6-10/10 Last Admin: 09/11/19 07:51 Dose: 2 mg Documented by: Nitroglycerin (Nitrostat) 0.4 mg SUBLINGUAL Q5M PRN PRN Reason: CARDIAC/CHEST PAIN Ondansetron HCl (Zofran) 4 mg IV Q8H PRN PRN PRN Reason: NAUSEA/VOMITING Oxycodone HCl (Oxyir) 5 mg PO Q4H PRN PRN PRN Reason: Pain Score 4-5/10 Pantoprazole Sodium (Protonix) 40 mg PO DAILY [facility] Last Admin: 09/11/19 09:56 Dose: 40 mg Documented by: Paroxetine HCl (Paxil) 20 mg PO DAILY [facility] Last Admin: 09/11/19 09:56 Dose: 20 mg Documented by: Polysaccharide Iron Complex (Ferrex 150) [facility] Potassium Chloride (K-Dur) 20 meq [facility] Prochlorperazine Edisylate (Compazine Iv) 5 mg IV Q4H PRN PRN PRN Reason: Breakthrough Nausea/Vomiting Psyllium Hydrophilic Mucilloid (Metamucil) 1 packet PO DAILY PRN PRN PRN Reason: Constipation Senna/Docusate Sodium (Senokot-S, Luly-Colace) 2 tablet PO BID PRN PRN PRN Reason: Constipation Sodium Chloride () 10 - 40 ml IV UD PRN PRN Reason: SALINE FLUSH Last Admin: 09/11/19 11:48 Dose: 10 ml Documented by: Throat Lozenges (Cepacol Sore Throat Lozenge) 1 lozenge MUCOUS MEM Q2H PRN PRN PRN Reason: SORE THROAT STROKE Vital Signs/Narrative: Vital Signs Temp Pulse Resp BP Pulse Ox 09/11/19 11:00 57 L 09/11/19 10:46 60 18 95 09/11/19 09:57 60 119/43 L 09/11/19 09:00 98.0 F 60 18 119/43 L 100 Medical Necessity - Tobacco Use Smoking Status: Former smoker Tobacco Use: Non-smoker Assessment/Plan All Active Problems Bilateral pleural effusion (Acute) Pericardial effusion (Acute) Former tobacco use (Acute) CHF exacerbation (Acute) Acute hypoxia, chronic hypoxic respiratory failure secondary to acute diastolic CHF exacerbation, underlying pulmonary hypertension-patient has not been using her basal oxygen at home as she recently moved here and did not bring her equipment. She was also noncompliant with CPAP. She does have increased PND and orthopnea, evidence of congestive heart failure. She has significant pleural effusions on imaging and is going for thoracentesis today. Consult pulmonology. Fluid studies ordered. We do not have an echo in system. Troponin negative x3, TSH normal. BNP elevated at 360. Continue Lasix as ordered. Echocardiogram shows an EF of 60%, normal LV size and systolic function, normal RV size and systolic function, negative AST, 1-2+ TVI, RVSP of 41 mmHg, mild aortic valve insufficiency, evidence of diastolic dysfunction. Trivial to small pericardial effusion, no evidence of tamponade. 2. COPD with chronic hypoxic respiratory failure-continue aerosols. I do not feel that this is an acute exacerbation. She has no wheezing. Former Smoker. 3. Iron deficiency anemia-iron studies with significant deficiency, started Venofer and oral iron. Check stool occult blood. LDH is elevated at 276. She is significantly microcytic. 4. Hypertension-stable 5. History of CAD-on metoprolol and Plavix. Plavix held for thoracentesis. 6. Obstructive sleep apnea-again noncompliant with home CPAP. 7. Anxiety and depression-Paxil DVT prophylaxis: On hold for thoracentesis. DC planning: We will need to test for oxygen prior to discharge. She should follow-up with pulmonology as an outpatient. She will need PFTs and a sleep study. This patient was seen by Roberto Iglesias PA-C under the supervision of Dr. Sawyer <Carlos Sawyer - Last Filed: 09/11/19 13:54> Vitals/I&O's: Vital Signs Temp Pulse Resp BP Pulse Ox 98.2 F 59 L 18 140/49 H 95 09/11/19 12:25 09/11/19 12:25 09/11/19 12:25 09/11/19 12:25 09/11/19 10:46 Oxygen Flow Rate (L/min) [1 ( 3 Initial Baseline)] Oxygen Flow Rate (L/min) 3 Oxygen Delivery Method [2] Room Air Oxygen Delivery Method [1 ( Nasal Cannula Initial Baseline)] Oxygen Delivery Method Nasal Cannula Weight: 87.9 kg Body Mass Index (BMI) 33.2 Intake and Output for Last 24 Hours 09/09/19 09/10/19 09/11/19 23:59 23:59 23:59 Intake Total 410 / 410 Output Total 950 / 950 Balance -540 / -540 Laboratory Results 09/10/19 11:57: WBC 6.7, RBC 3.83 L, Hgb 8.7 L, Hct 30.6 L, MCV 79.9 L, MCH 22.7 L, MCHC 28.4 L, RDW Std Deviation 45.8 H, RDW Coeff of Ganesh 15.9 H, Plt Count 278, MPV 11.2, Immature Gran % (Auto) 0.400, Neut % (Auto) 76.1 H, Lymph % (Auto) 12.6 L, [place]end[place] % (Auto) 8.0, Eos % (Auto) 1.6, Baso % (Auto) 1.3 H, Absolute Neuts (auto) 5.1, Absolute Lymphs (auto) 0.85, Nucleated RBC % 0 09/10/19 11:57: Sodium 135 L, Potassium 3.6, Chloride 101, Carbon Dioxide 28.0, Anion Gap 6, BUN 13, Creatinine 1.09 H, Estim Creat Clear Calc 41.98, Est GFR (MDRD) Af Amer 63, Est GFR (MDRD) Non-Af 52 L, BUN/Creatinine Ratio 11.9, Glucose 90, Calcium 9.0, Troponin I < 0.015 09/10/19 11:57: Total Bilirubin 0.70, Direct Bilirubin 0.10, AST 10 L, ALT 17, Alkaline Phosphatase 121 H, Total Protein 7.4, Albumin 4.0, Globulin 3.4 09/10/19 11:57: B-Natriuretic Peptide 360.2 H 09/10/19 11:57: Magnesium 2.2, TSH 2.67 02/24/20 11:57: Iron 20 L, TIBC 578 H, Iron Saturation 3.5 L, Ferritin 14, Lactate Dehydrogenase 276 H, Total Protein 7.2, Globulin 3.3, Albumin/Globulin Ratio 1.2 09/10/19 15:12: PT 13.3, INR 1.0, APTT 27.3 09/10/19 18:54: Troponin I < 0.015 09/10/19 21:40: Troponin I < 0.015 09/11/19 06:28: WBC 4.7, RBC 3.52 L, Hgb 7.9 L, Hct 27.9 L, MCV 79.3 L, MCH 22.4 L, MCHC 28.3 L, RDW Std Deviation 46.9 H, RDW Coeff of Ganesh 16.2 H, Plt Count 232, MPV 12.1 H, Immature Gran % (Auto) 0.400, Neut % (Auto) 70.9 H, Lymph % (Auto) 12.9 L, [place]end[place] % (Auto) 10.1 H, Eos % (Auto) 4.4, Baso % (Auto) 1.3 H, Absolute Neuts (auto) 3.4, Absolute Lymphs (auto) 0.61 L, Nucleated RBC % 0 09/11/19 06:28: Sodium 138, Potassium 3.1 L, Chloride 98, Carbon Dioxide 34.0 H, Anion Gap 6, BUN 14, Creatinine 1.07 H, Estim Creat Clear Calc 42.76, Est GFR (MDRD) Af Amer 65, Est GFR (MDRD) Non-Af 54 L, BUN/Creatinine Ratio 13.1, Glucose 88, Calcium 8.6, Triglycerides 152, Cholesterol 206 H, LDL Cholesterol 132 H, VLDL Cholesterol 30, HDL Cholesterol 44 09/11/19 06:28: Magnesium 2.1 Current Medications Acetaminophen (Tylenol) 650 mg PO Q6H PRN PRN PRN Reason: Pain Score 1-10/Temp > 100.7 F Al Hydroxide/Mg Hydroxide (Mylanta Ii) 30 ml PO Q6H PRN PRN PRN Reason: Gastric Burning Albuterol Sulfate (Ventolin Aerosols) 2.5 mg INHALATION Q2H PRN PRN PRN Reason: dyspnea, wheezing Albuterol/Ipratropium (Duoneb) 3 ml INHALATION Q4HWA.RT [facility] Last Admin: 09/11/19 10:46 Dose: 3 ml Documented by: Dextrose (D50w Syringe) 0 gm IV X1 PRN; Protocol PRN Reason: Hypoglycemia Famotidine (Pepcid) 20 mg PO DAILY [facility] Last Admin: 09/11/19 09:56 Dose: 20 mg Documented by: Furosemide (Lasix) 40 mg IV BIDLX [facility] Last Admin: 09/11/19 10:00 Dose: 40 mg Documented by: Glucagon () 1 mg IM .X1 PRN PRN Reason: Hypoglycemia Guaifenesin (Robitussin) 20 ml PO Q4H PRN PRN PRN Reason: COUGH Hydralazine HCl (Apresoline Iv) 10 mg IV Q4H PRN PRN PRN Reason: SBP > 160 Iron Sucrose 200 mg/ Sodium (Chloride) 110 mls @ 220 mls/hr IV DAILY [facility] Stop: 09/12/19 10:29 Last Infusion: 09/11/19 11:00 Dose: Infused Documented by: Magnesium Hydroxide (Milk Of Magnesia) 30 ml PO DAILY PRN PRN PRN Reason: Constipation Melatonin (Melatonin) 3 mg PO QHS PRN PRN PRN Reason: INSOMNIA Metoprolol Tartrate (Lopressor (Beta Roni)) 25 mg PO DAILY [facility] Last Admin: 09/11/19 09:57 Dose: 25 mg Documented by: Morphine Sulfate () 2 mg IV Q3H PRN PRN PRN Reason: Pain Score 6-10/10 Last Admin: 09/11/19 07:51 Dose: 2 mg Documented by: Nitroglycerin (Nitrostat) 0.4 mg SUBLINGUAL Q5M PRN PRN Reason: CARDIAC/CHEST PAIN Ondansetron HCl (Zofran) 4 mg IV Q8H PRN PRN PRN Reason: NAUSEA/VOMITING Oxycodone HCl (Oxyir) 5 mg PO Q4H PRN PRN PRN Reason: Pain Score 4-5/10 Pantoprazole Sodium (Protonix) 40 mg PO DAILY [facility] Last Admin: 09/11/19 09:56 Dose: 40 mg Documented by: Paroxetine HCl (Paxil) 20 mg PO DAILY [facility] Last Admin: 09/11/19 09:56 Dose: 20 mg Documented by: Polysaccharide Iron Complex (Ferrex 150) [facility] Potassium Chloride (K-Dur) 20 meq PO BIDCM [facility] Prochlorperazine Edisylate (Compazine Iv) 5 mg IV Q4H PRN PRN PRN Reason: Breakthrough Nausea/Vomiting Psyllium Hydrophilic Mucilloid (Metamucil) 1 packet PO DAILY PRN PRN PRN Reason: Constipation Senna/Docusate Sodium (Senokot-S, Luly-Colace) 2 tablet PO BID PRN PRN PRN Reason: Constipation Sodium Chloride () 10 - 40 ml IV UD PRN PRN Reason: SALINE FLUSH Last Admin: 09/11/19 11:48 Dose: 10 ml Documented by: Throat Lozenges (Cepacol Sore Throat Lozenge) 1 lozenge MUCOUS MEM Q2H PRN PRN PRN Reason: SORE THROAT STROKE Vital Signs/Narrative: Vital Signs Temp Pulse Pulse Pulse Resp Resp Resp 09/11/19 12:25 98.2 F 59 L 57 L 18 16 09/11/19 11:00 57 L 09/11/19 10:46 60 18 09/11/19 09:57 60 BP BP BP Pulse Ox 09/11/19 12:25 140/49 H 152/53 H 09/11/19 11:00 09/11/19 10:46 95 09/11/19 09:57 119/43 L Assessment/Plan This patient was seen in conjunction with Roberto Iglesias PA-C . I have independently interviewed and examined the patient and reviewed pertinent historical, laboratory, and other data. Please refer to Roberto Iglesias PA-C note for details of this patient's presentation, findings, and recommendations. I have reviewed Roberto Iglesias PA-C note and concur with documented findings. In brief, patient is a 74-year-old lady who presented with progressive shortness of breath. Imaging studies obtained demonstrated bilateral pleural effusion as well as pulmonary vascular congestion admitted to monitored bed for further management Physical Examination: GENERAL: cooperative HEENT: Atraumatic; EYES; Anicteric, Normal Conjunctiva NECK; supple, normal thyroid, RESPIRATORY: Diminished to auscultation CARDIOVASCULAR: Regular S1 S2, GI: soft, normoactive bowel sounds, : No Renal angle tenderness; EXTREMITIES: edema, no clubbing, MUSCULOSKELETAL: no muscle waisting NEURO: Awake; no lateralizing signs. SKIN: No Rash PSYCH; Flat affect Assessment: 1. Acute respiratory insufficiency 2. Acute on chronic congestive heart failure with preserved ejection fraction 3. Bilateral pleural effusion secondary to congestive heart failure 4. Chronic hypoxic respiratory failure 5. Essential hypertension 6. Coronary artery disease 7. Depression with anxiety 8. Obstructive sleep apnea 9. Obesity with BMI of 32.2 Recommendations: 1. I have discussed the results of my overview and impressions with the patient 2. Options for management were reviewed Code Visit Inpatient E&M: 17403 Subs Hosp L3
--- NOTE | 2019-09-11 13:05 | CON.PCM_ITS ---
Reason for Consult Date of Consultation: 09/11/19 Reason for Consultation: Pleural effusions History of Present Illness: The patient is a 74-year-old female, with a history as outlined below, who initially presented to the emergency department on September 10 with complaints of shortness of breath. The patient recently relocated from [place] to [place]. She does have a history of coronary artery disease status post PCI x2 in the past. The patient also has a reported history of COPD and chronic hypoxemic respiratory failure. She was previously diagnosed with obstructive sleep apnea as well, but is noncompliant with the use of nocturnal CPAP therapy. The patient is a relatively poor historian, but does report that she utilizes Symbicort in her home environment. She does have a smoking history of approximately 60 pack years, having quit completely 30 years ago. 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 On presentation to the emergency department, the patient was noted to be afebrile and hypertensive. She was tachypneic, but was documented to be saturating 99% on room air. Initial laboratory evaluation revealed no evidence of a leukocytosis. The patient does have evidence of microcytic anemia, nevertheless. Coagulation profile was within normal limits. Chemistry profile was unremarkable. Troponin was negative. BNP was elevated to 360. CTA chest revealed no evidence for pulmonary embolism. There was evidence of moderate sized bilateral pleural effusions with associated compressive atelectasis. Past Medical History Past Medical History (Chronic Problems): Chronic Problems Dyspnea (Chronic) COPD (chronic obstructive pulmonary disease) (Chronic) Chronic respiratory failure with hypoxia (Chronic) HTN (hypertension) (Chronic) HLD (hyperlipidemia) (Chronic) CAD (coronary artery disease) (Chronic) OLEG (obstructive sleep apnea) (Chronic) Anxiety and depression (Chronic) Allergies No Known Allergies Allergy (Verified 09/10/19 13:21) Home Medications: Ambulatory Orders Medication Instructions Recorded Budesonide/Formoterol 160/4.5 2 puff INHALATION BID 09/10/19 [Symbicort 160/4.5 Mcg Inhaler (SP)] Clopidogrel Bisulfate [Plavix] 75 mg PO DAILY 09/10/19 Diclofenac [Voltaren] 75 mg PO DAILY 09/10/19 Hydrochlorothiazide 12.5 mg PO DAILY 09/10/19 Ipratropium/Albuterol Respimat 1 puff INHALATION 4X/DAY 09/10/19 [Combivent Respimat Inhal [place]] Metoprolol Tartrate [Lopressor 25 mg PO DAILY 09/10/19 (Beta Roni)] Nitroglycerin 0.4 mg SL PRN PRN 09/10/19 Omeprazole 40 mg PO DAILY 09/10/19 Paroxetine [Paxil] 20 mg PO DAILY 09/10/19 Ranitidine [Zantac] 150 mg PO DAILY 09/10/19 Surgical History: - - PCI x2 most recently 10/2017, tonsillectomy, appendectomy, cholecystectomy, hysterectomy. 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 Smoking Status: Former smoker Tobacco Use: Non-smoker Alcohol: None Drugs: None - *Family History Maternal History Items: - - Patient notes a maternal family history of heart disease as well as cancer, notes unclear of cancer type, past when she was only 5 years old. Paternal History Items: - - Patient notes a paternal family history of heart disease as well as cancer, specifically stomach cancer. Review of Systems Constitutional: Denies: Chills, Fever Eyes: Denies: Blurred vision, Double vision HEENT: Denies: Head Aches, Sinus Congestion, Sinus Drainage Cardiovascular: Denies: Chest Pain, Palpitations Respiratory: Reports: Cough, Shortness of Breath Gastrointestinal: Denies: Abdominal Pain, Nausea, Vomiting Genitourinary: Denies: Dysuria Musculoskeletal: Denies: Joint Pain, Joint Tenderness Skin: Denies: Rash, Wounds Neurological: Denies: Numbness, Tingling, Focal weakness Psychiatric: Denies: Anxiety, Depression, Homicidal Ideations, Suicidal Ideations Hematologic/ Lymphatic: Reports: Anemia Patient Problems: Active and Suspected Problems Bilateral pleural effusion (Acute) Pericardial effusion (Acute) Former tobacco use (Acute) CHF exacerbation (Acute) Objective: The patient's most recent lab work, culture data and imaging studies have all been personally reviewed. Surface echocardiogram revealed mild concentric LVH with an ejection fraction of 60% and stage I diastolic dysfunction. Right ventricular systolic pressure was estimated to be 41 mmHg. - Physical Exam Vitals/I&O's: Vital Signs Temp Pulse Resp BP Pulse Ox 98.2 F 59 L 18 140/49 H 95 09/11/19 12:25 09/11/19 12:25 09/11/19 12:25 09/11/19 12:25 09/11/19 10:46 Oxygen Flow Rate (L/min) [1 ( 3 Initial Baseline)] Oxygen Flow Rate (L/min) 3 Oxygen Delivery Method [2] Room Air Oxygen Delivery Method [1 ( Nasal Cannula Initial Baseline)] Oxygen Delivery Method Nasal Cannula Weight: 193 lb 12.581 oz Body Mass Index (BMI) 33.2 Intake and Output for Last 24 Hours 09/09/19 09/10/19 09/11/19 23:59 23:59 23:59 Intake Total 410 / 410 Output Total 950 / 950 Balance -540 / -540 General: Alert, Cooperative, No apparent distress HEENT: Atraumatic, PERRLA, Normocephalic Oral: No Gingival or Mucosal Lesions/ Ulcerations Neck: Supple, No Nodes, Trachea Midline Lungs: Diminished, - - Faint bibasilar rales Cardiovascular: Regular rate, Regular Rhythm, Normal S1, Normal S2, No murmurs Abdomen: Bowel Sounds Present, Soft, Non Tender Extremities: No clubbing, No cyanosis, No edema Skin: No breakdown Musculoskeletal: No Tenderness to Palpation of Joints or Extremities Lymphatic: No Cervical, Supraclavicular, or Inguinal Adenopathy Neurological: Cranial nerves II-XII grossly intact, Neuro grossly intact Psych/Mental Status: Normal Affect, Appropriate Labs (Last 48 Hours) 09/10/19 09/10/19 09/10/19 11:57 11:57 11:57 WBC 6.7 RBC 3.83 L Hgb 8.7 L Hct 30.6 L MCV 79.9 L MCH 22.7 L MCHC 28.4 L RDW Std Deviation 45.8 H RDW Coeff of Ganesh 15.9 H Plt Count 278 MPV 11.2 Immature Gran % (Auto) 0.400 Neut % (Auto) 76.1 H Lymph % (Auto) 12.6 L [place] % (Auto) 8.0 Eos % (Auto) 1.6 Baso % (Auto) 1.3 H Absolute Neuts (auto) 5.1 Absolute Lymphs (auto) 0.85 Nucleated RBC % 0 PT INR APTT Sodium 135 L Potassium 3.6 Chloride 101 Carbon Dioxide 28.0 Anion Gap 6 BUN 13 Creatinine 1.09 H Estim Creat Clear Calc 41.98 Est GFR (MDRD) Af Amer 63 Est GFR (MDRD) Non-Af 52 L BUN/Creatinine Ratio 11.9 Glucose 90 Calcium 9.0 Magnesium Iron TIBC Iron Saturation Ferritin Total Bilirubin 0.70 Direct Bilirubin 0.10 AST 10 L ALT 17 Alkaline Phosphatase 121 H Lactate Dehydrogenase Troponin I < 0.015 B-Natriuretic Peptide Total Protein 7.4 Albumin 4.0 Globulin 3.4 Albumin/Globulin Ratio Triglycerides Cholesterol LDL Cholesterol VLDL Cholesterol HDL Cholesterol TSH 09/10/19 09/10/19 09/10/19 11:57 11:57 11:57 WBC RBC Hgb Hct MCV MCH MCHC RDW Std Deviation RDW Coeff of Ganesh Plt Count MPV Immature Gran % (Auto) Neut % (Auto) Lymph % (Auto) [place] % (Auto) Eos % (Auto) Baso % (Auto) Absolute Neuts (auto) Absolute Lymphs (auto) Nucleated RBC % PT INR APTT Sodium Potassium Chloride Carbon Dioxide Anion Gap BUN Creatinine Estim Creat Clear Calc Est GFR (MDRD) Af Amer Est GFR (MDRD) Non-Af BUN/Creatinine Ratio Glucose Calcium Magnesium 2.2 Iron 20 L TIBC 578 H Iron Saturation 3.5 L Ferritin 14 Total Bilirubin Direct Bilirubin AST ALT Alkaline Phosphatase Lactate Dehydrogenase 276 H Troponin I B-Natriuretic Peptide 360.2 H Total Protein 7.2 Albumin Globulin 3.3 Albumin/Globulin Ratio 1.2 Triglycerides Cholesterol LDL Cholesterol VLDL Cholesterol HDL Cholesterol TSH 2.67 09/10/19 09/10/19 09/10/19 15:12 18:54 21:40 WBC RBC Hgb Hct MCV MCH MCHC RDW Std Deviation RDW Coeff of Ganesh Plt Count MPV Immature Gran % (Auto) Neut % (Auto) Lymph % (Auto) [place] % (Auto) Eos % (Auto) Baso % (Auto) Absolute Neuts (auto) Absolute Lymphs (auto) Nucleated RBC % PT 13.3 INR 1.0 APTT 27.3 Sodium Potassium Chloride Carbon Dioxide Anion Gap BUN Creatinine Estim Creat Clear Calc Est GFR (MDRD) Af Amer Est GFR (MDRD) Non-Af BUN/Creatinine Ratio Glucose Calcium Magnesium Iron TIBC Iron Saturation Ferritin Total Bilirubin Direct Bilirubin AST ALT Alkaline Phosphatase Lactate Dehydrogenase Troponin I < 0.015 < 0.015 B-Natriuretic Peptide Total Protein Albumin Globulin Albumin/Globulin Ratio Triglycerides Cholesterol LDL Cholesterol VLDL Cholesterol HDL Cholesterol TSH 09/11/19 09/11/19 09/11/19 06:28 06:28 06:28 WBC 4.7 RBC 3.52 L Hgb 7.9 L Hct 27.9 L MCV 79.3 L MCH 22.4 L MCHC 28.3 L RDW Std Deviation 46.9 H RDW Coeff of Ganesh 16.2 H Plt Count 232 MPV 12.1 H Immature Gran % (Auto) 0.400 Neut % (Auto) 70.9 H Lymph % (Auto) 12.9 L [place] % (Auto) 10.1 H Eos % (Auto) 4.4 Baso % (Auto) 1.3 H Absolute Neuts (auto) 3.4 Absolute Lymphs (auto) 0.61 L Nucleated RBC % 0 PT INR APTT Sodium 138 Potassium 3.1 L Chloride 98 Carbon Dioxide 34.0 H Anion Gap 6 BUN 14 Creatinine 1.07 H Estim Creat Clear Calc 42.76 Est GFR (MDRD) Af Amer 65 Est GFR (MDRD) Non-Af 54 L BUN/Creatinine Ratio 13.1 Glucose 88 Calcium 8.6 Magnesium 2.1 Iron TIBC Iron Saturation Ferritin Total Bilirubin Direct Bilirubin AST ALT Alkaline Phosphatase Lactate Dehydrogenase Troponin I B-Natriuretic Peptide Total Protein Albumin Globulin Albumin/Globulin Ratio Triglycerides 152 Cholesterol 206 H LDL Cholesterol 132 H VLDL Cholesterol 30 HDL Cholesterol 44 TSH Clinical Impression(s) from Imaging Studies Chest X-Ray 09/10/19 13:47 IMPRESSION: 1. Mild cardiomegaly 2. Patchy pneumonic infiltrate in the right lung base Electronically Signed: Bart Ingram at 14:47 EST Tel , Service support , Chest CTA 09/10/19 14:52 IMPRESSION: 1. Normal CTA chest examination, without a demonstrated pulmonary embolism or arterial dissection. 2. Large bilateral pleural effusions with bibasilar atelectasis. 3. Small pericardial effusion. Electronically Signed: Aries Stone MD at 15:45 EST Tel , Service support , Current Medications Acetaminophen (Tylenol) 650 mg PO Q6H PRN PRN PRN Reason: Pain Score 1-10/Temp > 100.7 F Al Hydroxide/Mg Hydroxide (Mylanta Ii) 30 ml PO Q6H PRN PRN PRN Reason: Gastric Burning Albuterol Sulfate (Ventolin Aerosols) 2.5 mg INHALATION Q2H PRN PRN PRN Reason: dyspnea, wheezing Albuterol/Ipratropium (Duoneb) 3 ml INHALATION Q4HWA.RT [facility] Last Admin: 09/11/19 10:46 Dose: 3 ml Documented by: Dextrose (D50w Syringe) 0 gm IV X1 PRN; Protocol PRN Reason: Hypoglycemia Famotidine (Pepcid) 20 mg PO DAILY [facility] Last Admin: 09/11/19 09:56 Dose: 20 mg Documented by: Furosemide (Lasix) 40 mg IV BIDLX [facility] Last Admin: 09/11/19 10:00 Dose: 40 mg Documented by: Glucagon () 1 mg IM .X1 PRN PRN Reason: Hypoglycemia Guaifenesin (Robitussin) 20 ml PO Q4H PRN PRN PRN Reason: COUGH Hydralazine HCl (Apresoline Iv) 10 mg IV Q4H PRN PRN PRN Reason: SBP > 160 Iron Sucrose 200 mg/ Sodium (Chloride) 110 mls @ 220 mls/hr IV DAILY [facility] Stop: 09/12/19 10:29 Last Infusion: 09/11/19 11:00 Dose: Infused Documented by: Magnesium Hydroxide (Milk Of Magnesia) 30 ml PO DAILY PRN PRN PRN Reason: Constipation Melatonin (Melatonin) 3 mg PO QHS PRN PRN PRN Reason: INSOMNIA Metoprolol Tartrate (Lopressor (Beta Roni)) 25 mg PO DAILY [facility] Last Admin: 09/11/19 09:57 Dose: 25 mg Documented by: Morphine Sulfate () 2 mg IV Q3H PRN PRN PRN Reason: Pain Score 6-10/10 Last Admin: 09/11/19 07:51 Dose: 2 mg Documented by: Nitroglycerin (Nitrostat) 0.4 mg SUBLINGUAL Q5M PRN PRN Reason: CARDIAC/CHEST PAIN Ondansetron HCl (Zofran) 4 mg IV Q8H PRN PRN PRN Reason: NAUSEA/VOMITING Oxycodone HCl (Oxyir) 5 mg PO Q4H PRN PRN PRN Reason: Pain Score 4-5/10 Pantoprazole Sodium (Protonix) 40 mg PO DAILY [facility] Last Admin: 09/11/19 09:56 Dose: 40 mg Documented by: Paroxetine HCl (Paxil) 20 mg PO DAILY [facility] Last Admin: 09/11/19 09:56 Dose: 20 mg Documented by: Polysaccharide [facility] ([facility]rex 150) [facility] Potassium Chloride (K-Dur) [facility] Prochlorperazine Edisylate (Compazine Iv) 5 mg IV Q4H PRN PRN PRN Reason: Breakthrough Nausea/Vomiting Psyllium Hydrophilic Mucilloid (Metamucil) 1 packet PO DAILY PRN PRN PRN Reason: Constipation Senna/Docusate Sodium (Senokot-S, Luly-Colace) 2 tablet PO BID PRN PRN PRN Reason: Constipation Sodium Chloride () 10 - 40 ml IV UD PRN PRN Reason: SALINE FLUSH Last Admin: 09/11/19 11:48 Dose: 10 ml Documented by: Throat Lozenges (Cepacol Sore Throat Lozenge) 1 lozenge MUCOUS MEM Q2H PRN PRN PRN Reason: SORE THROAT Assessment/Plan All Active Problems Bilateral pleural effusion (Acute) Pericardial effusion (Acute) Former tobacco use (Acute) CHF exacerbation (Acute) RECOMMENDATIONS: 1. Continue scheduled Lasix. 2. Potassium repletion as ordered. 3. Wean supplemental oxygen to maintain saturations at or above 90%. 4. Continue scheduled bronchodilators. 5. The patient will require a re-titration study on an outpatient basis. 6. Start empiric BiPAP therapy 12/6 nightly. This should help assist with diuresis and alveolar recruitment. 7. Recommend outpatient pulmonary follow-up within 2 weeks of discharge. Baseline pulmonary function studies can be obtained at that time. IMPRESSIONS: 1. Acute on chronic hypoxemic respiratory failure Appears to be secondary to decompensated heart failure with preserved ejection fraction. The patient is responding clinically to the use of diuretics, which I would recommend continuing. Attempts at ultrasound-guided thoracentesis was unsuccessful due to limited pleural fluid pocket. Wean supplemental oxygen to maintain saturations at or above 90%. Encourage incentive spirometer use and mobilize patient as tolerated. 2. Self-reported COPD of unknown severity Patient does have an extensive previous smoking history. She is currently utilizing Symbicort on an outpatient basis. For now, agree with continuing scheduled bronchodilators. Upon follow-up in the pulmonary medicine clinic, orders can be placed to obtain baseline pulmonary function studies. 3. History of obstructive sleep apnea The patient does report a longstanding history of OLEG but is currently noncompliant with the use of nocturnal Pap therapy. Her current machine is nonfunctional. Therefore, I would recommend that she undergo a re-titration polysomnogram upon discharge from the hospital. We would then be able to place an order for new equipment for her. 4. Hypokalemia Aggressive electrolyte repletion. 5. History of tobacco dependency, now in remission/hypertension/history of coronary artery disease/anxiety/depression Complicates care, management, recovery and prognosis. Continue home medications as indicated. This note was generated with jslyhl dictation software. It may contain incorrect words, spelling, and punctuation that were not noted in checking the note before signing. Code Visit Inpatient E&M: 07794 Init Hosp L3
[2019-09-12] VITALS (11 sets, daily range): BP systolic 125–129; BP diastolic 40–95; PULSE 57–68; RESP 16–20; TEMP 36.6–36.8; O2SAT 86–99
--- NOTE | 2019-09-12 00:46 | CPS ---
Pt. didn't want to wear BiPaP tonight
[2019-09-12] MEDS: 0.9% Saline Lock 10 ML Syringe IV ×2 (06:50→09:55)
[2019-09-12] MEDS: Morphine 2 MG/ML Syringe IV (06:50)
[2019-09-12 06:54] LABS: Absolute Lymphocyte Count 0.64 X10^3/uL (0.83-4.51); Basophil# 0.06 X10^3/uL; Basophil% 1.1 % (0-1); Eosinophil# 0.34 X10^3/uL; Hematocrit 30.1 % (37-47); Hemoglobin 8.7 g/dL (12.0-15.0); Lymphocyte # 0.64 X10^3/ul (4.0); Lymphocyte % 11.3 % (19-41); Mean Corp Hgb Conc 28.9 g/dL (32-36); Mean Corpuscular Volume 79.4 fL (81-99); Mean Platelet Vol. 11.1 fl (6.2-12.0); Monocyte% 10.6 % (0-10); NRBC Flagged by Analyzer 0 % (0-5); Neutrophil # 3.95 X10^3/uL (2.7-7.7); Neutrophil % 70.1 % (47-70); Platelet Count 231 K/mm3 (150-450); RBC Distribution Width CV 16.2 % (11.6-14.6); Red Blood Count 3.79 M/mm3 (4.2-5.4); White Blood Count 5.6 K/mm3 (4.4-11.0)
[2019-09-12] MEDS: Ipratropium/Albuterol Sulfate 3 ML AMPUL.NEB INHALATION ×2 (07:00→11:12)
[2019-09-12 07:04] LABS: Anion Gap 5 (5-15); BUN 16 mg/dL (7-18); BUN/Creat Ratio 15.4 RATIO (10-20); Calcium,Total 8.7 mg/dL (8.5-10.1); Chloride 98 mmol/L (98-107); Creatinine, Serum 1.04 mg/dL (0.55-1.02); EST Glomerular Filtration Rate 55 mL/min (>60); Est Glom Filt Rate - Afr Amer 67 mL/min (>60); Glucose 92 mg/dL (74-106); Potassium 3.8 mmol/L (3.5-5.1); Sodium Level 135 mmol/L (136-145)
--- NOTE | 2019-09-12 09:50 | CASEMGMT ---
It was brought to SW attention that pt has transportation issues. SW gave pt information on the taxi voucher program with [employer] and other transportation resources in the area. Pt states she may need transportation home. SW explained we should be able to get pt a ride home when pt is discharged if needed. YELENA Jung
[2019-09-12] MEDS: Metoprolol Tartrate 25 MG Tablet PO (09:54)
[2019-09-12] MEDS: Iron Polysaccharide Complex 150 MG CAPSULE PO (09:54)
[2019-09-12] MEDS: Famotidine 20 MG Tablet PO (09:54)
[2019-09-12] MEDS: Furosemide 40 MG/4 ML Vial IV (09:54)
[2019-09-12] MEDS: Paroxetine 20 MG Tablet PO (09:54)
[2019-09-12] MEDS: Pantoprazole Sodium 40 MG Tablet PO (09:54)
--- NOTE | 2019-09-12 09:58 | PN_ITS ---
Patient Problems: Active and Suspected Problems Bilateral pleural effusion (Acute) Pericardial effusion (Acute) Former tobacco use (Acute) CHF exacerbation (Acute) Subjective: The patient was seen and examined at the bedside this morning. Events from the last 24 hours have been reviewed. The patient is currently afebrile, hemody namically stable and maintaining appropriate oxygen saturations on 2 L/min via nasal cannula. Shortness of breath has improved. Objective: The patient's most recent lab work, culture data and imaging studies have all been personally reviewed. Surface echocardiogram revealed mild concentric LVH with an ejection fraction of 60% and diastolic dysfunction. Right ventricular systolic pressure was estimated to be 41 mmHg. - Physical Exam Vitals/I&O's: Vital Signs Temp Pulse Resp BP Pulse Ox 97.9 F 61 18 125/95 H 99 09/12/19 09:40 09/12/19 09:54 09/12/19 09:40 09/12/19 09:40 09/12/19 09:40 Oxygen Flow Rate (L/min) [1 ( 3 Initial Baseline)] Oxygen Flow Rate (L/min) 2 Oxygen Delivery Method [2] Room Air Oxygen Delivery Method [1 ( Nasal Cannula Initial Baseline)] Oxygen Delivery Method Nasal Cannula Weight: 202 lb 9.677 oz Body Mass Index (BMI) 33.2 Intake and Output for Last 24 Hours 09/10/19 09/11/19 09/12/19 23:59 23:59 23:59 Intake Total 1070 / 1070 120 / 120 Output Total 1350 / 1350 Balance -280 / -280 120 / 120 General: Alert, Cooperative, No apparent distress HEENT: Atraumatic, PERRLA, Normocephalic Oral: No Gingival or Mucosal Lesions/ Ulcerations Neck: Supple, No Nodes, Trachea Midline Lungs: No rhonchi, No wheeze, No rales, Diminished Cardiovascular: Regular rate, Regular Rhythm, Normal S1, Normal S2, No murmurs Abdomen: Bowel Sounds Present, Soft, Non Tender Extremities: No clubbing, No cyanosis, No edema Skin: No breakdown Musculoskeletal: No Tenderness to Palpation of Joints or Extremities, No Muscle Wasting Lymphatic: No Cervical, Supraclavicular, or Inguinal Adenopathy Neurological: Cranial nerves II-XII grossly intact, Neuro grossly intact Psych/Mental Status: Alert and oriented to time, place, person, mood and affect Labs (Last 48 Hours) 09/10/19 09/10/19 09/10/19 11:57 11:57 11:57 WBC 6.7 RBC 3.83 L Hgb 8.7 L Hct 30.6 L MCV 79.9 L MCH 22.7 L MCHC 28.4 L RDW Std Deviation 45.8 H RDW Coeff of Ganesh 15.9 H Plt Count 278 MPV 11.2 Immature Gran % (Auto) 0.400 Neut % (Auto) 76.1 H Lymph % (Auto) 12.6 L Coos % (Auto) 8.0 Eos % (Auto) 1.6 Baso % (Auto) 1.3 H Absolute Neuts (auto) 5.1 Absolute Lymphs (auto) 0.85 Nucleated RBC % 0 PT INR APTT Sodium 135 L Potassium 3.6 Chloride 101 Carbon Dioxide 28.0 Anion Gap 6 BUN 13 Creatinine 1.09 H Estim Creat Clear Calc 41.98 Est GFR (MDRD) Af Amer 63 Est GFR (MDRD) Non-Af 52 L BUN/Creatinine Ratio 11.9 Glucose 90 Calcium 9.0 Magnesium Iron TIBC Iron Saturation Ferritin Total Bilirubin 0.70 Direct Bilirubin 0.10 AST 10 L ALT 17 Alkaline Phosphatase 121 H Lactate Dehydrogenase Troponin I < 0.015 B-Natriuretic Peptide Total Protein 7.4 Albumin 4.0 Globulin 3.4 Albumin/Globulin Ratio Triglycerides Cholesterol LDL Cholesterol VLDL Cholesterol HDL Cholesterol TSH 09/10/19 09/10/19 09/10/19 11:57 11:57 11:57 WBC RBC Hgb Hct MCV MCH MCHC RDW Std Deviation RDW Coeff of Ganesh Plt Count MPV Immature Gran % (Auto) Neut % (Auto) Lymph % (Auto) Coos % (Auto) Eos % (Auto) Baso % (Auto) Absolute Neuts (auto) Absolute Lymphs (auto) Nucleated RBC % PT INR APTT Sodium Potassium Chloride Carbon Dioxide Anion Gap BUN Creatinine Estim Creat Clear Calc Est GFR (MDRD) Af Amer Est GFR (MDRD) Non-Af BUN/Creatinine Ratio Glucose Calcium Magnesium 2.2 Iron 20 L TIBC 578 H Iron Saturation 3.5 L Ferritin 14 Total Bilirubin Direct Bilirubin AST ALT Alkaline Phosphatase Lactate Dehydrogenase 276 H Troponin I B-Natriuretic Peptide 360.2 H Total Protein 7.2 Albumin Globulin 3.3 Albumin/Globulin Ratio 1.2 Triglycerides Cholesterol LDL Cholesterol VLDL Cholesterol HDL Cholesterol TSH 2.67 09/10/19 09/10/19 09/10/19 15:12 18:54 21:40 WBC RBC Hgb Hct MCV MCH MCHC RDW Std Deviation RDW Coeff of Ganesh Plt Count MPV Immature Gran % (Auto) Neut % (Auto) Lymph % (Auto) Coos % (Auto) Eos % (Auto) Baso % (Auto) Absolute Neuts (auto) Absolute Lymphs (auto) Nucleated RBC % PT 13.3 INR 1.0 APTT 27.3 Sodium Potassium Chloride Carbon Dioxide Anion Gap BUN Creatinine Estim Creat Clear Calc Est GFR (MDRD) Af Amer Est GFR (MDRD) Non-Af BUN/Creatinine Ratio Glucose Calcium Magnesium Iron TIBC Iron Saturation Ferritin Total Bilirubin Direct Bilirubin AST ALT Alkaline Phosphatase Lactate Dehydrogenase Troponin I < 0.015 < 0.015 B-Natriuretic Peptide Total Protein Albumin Globulin Albumin/Globulin Ratio Triglycerides Cholesterol LDL Cholesterol VLDL Cholesterol HDL Cholesterol TSH 09/11/19 09/11/19 09/11/19 06:28 06:28 06:28 WBC 4.7 RBC 3.52 L Hgb 7.9 L Hct 27.9 L MCV 79.3 L MCH 22.4 L MCHC 28.3 L RDW Std Deviation 46.9 H RDW Coeff of Ganesh 16.2 H Plt Count 232 MPV 12.1 H Immature Gran % (Auto) 0.400 Neut % (Auto) 70.9 H Lymph % (Auto) 12.9 L Coos % (Auto) 10.1 H Eos % (Auto) 4.4 Baso % (Auto) 1.3 H Absolute Neuts (auto) 3.4 Absolute Lymphs (auto) 0.61 L Nucleated RBC % 0 PT INR APTT Sodium 138 Potassium 3.1 L Chloride 98 Carbon Dioxide 34.0 H Anion Gap 6 BUN 14 Creatinine 1.07 H Estim Creat Clear Calc 42.76 Est GFR (MDRD) Af Amer 65 Est GFR (MDRD) Non-Af 54 L BUN/Creatinine Ratio 13.1 Glucose 88 Calcium 8.6 Magnesium 2.1 Iron TIBC Iron Saturation Ferritin Total Bilirubin Direct Bilirubin AST ALT Alkaline Phosphatase Lactate Dehydrogenase Troponin I B-Natriuretic Peptide Total Protein Albumin Globulin Albumin/Globulin Ratio Triglycerides 152 Cholesterol 206 H LDL Cholesterol 132 H VLDL Cholesterol 30 HDL Cholesterol 44 TSH 09/12/19 09/12/19 06:25 06:25 WBC 5.6 RBC 3.79 L Hgb 8.7 L Hct 30.1 L MCV 79.4 L MCH 23.0 L MCHC 28.9 L RDW Std Deviation 46.0 H RDW Coeff of Ganesh 16.2 H Plt Count 231 MPV 11.1 Immature Gran % (Auto) 0.900 Neut % (Auto) 70.1 H Lymph % (Auto) 11.3 L Coos % (Auto) 10.6 H Eos % (Auto) 6.0 H Baso % (Auto) 1.1 H Absolute Neuts (auto) 4.0 Absolute Lymphs (auto) 0.64 L Nucleated RBC % 0 PT INR APTT Sodium 135 L Potassium 3.8 Chloride 98 Carbon Dioxide 32.0 Anion Gap 5 BUN 16 Creatinine 1.04 H Estim Creat Clear Calc 44.00 Est GFR (MDRD) Af Amer 67 Est GFR (MDRD) Non-Af 55 L BUN/Creatinine Ratio 15.4 Glucose 92 Calcium 8.7 Magnesium Iron TIBC Iron Saturation Ferritin Total Bilirubin Direct Bilirubin AST ALT Alkaline Phosphatase Lactate Dehydrogenase Troponin I B-Natriuretic Peptide Total Protein Albumin Globulin Albumin/Globulin Ratio Triglycerides Cholesterol LDL Cholesterol VLDL Cholesterol HDL Cholesterol TSH Clinical Impression(s) from Imaging Studies Chest X-Ray 09/10/19 13:47 IMPRESSION: 1. Mild cardiomegaly 2. Patchy pneumonic infiltrate in the right lung base Electronically Signed: Bart Ingram at 14:47 EST Tel , Service support , Chest CTA 09/10/19 14:52 IMPRESSION: 1. Normal CTA chest examination, without a demonstrated pulmonary embolism or arterial dissection. 2. Large bilateral pleural effusions with bibasilar atelectasis. 3. Small pericardial effusion. Electronically Signed: Aries Stone MD at 15:45 EST Tel , Service support , Chest Ultrasound 09/11/19 07:00 IMPRESSION: Only a tiny amount of pleural effusion was noted in both lung bases which has considerably decreased when compared with the previous CT of the chest obtained on 09/10/2019. For this reason, a thoracentesis was not performed. Electronically Signed: Bart Ingram, at 14:51 EST Tel , Service support , Current Medications Acetaminophen (Tylenol) 650 mg PO Q6H PRN PRN PRN Reason: Pain Score 1-10/Temp > 100.7 F Al Hydroxide/Mg Hydroxide (Mylanta Ii) 30 ml PO Q6H PRN PRN PRN Reason: Gastric Burning Albuterol Sulfate (Ventolin Aerosols) 2.5 mg INHALATION Q2H PRN PRN PRN Reason: dyspnea, wheezing Albuterol/Ipratropium (Duoneb) 3 ml INHALATION Q4HWA.RT [facility] Last Admin: 09/12/19 07:00 Dose: 3 ml Documented by: Dextrose (D50w Syringe) 0 gm IV X1 PRN; Protocol PRN Reason: Hypoglycemia Famotidine (Pepcid) 20 mg PO DAILY [facility] Last Admin: 09/12/19 09:54 Dose: 20 mg Documented by: Furosemide (Lasix) 40 mg IV BIDLX [facility] Last Admin: 09/12/19 09:54 Dose: 40 mg Documented by: Glucagon () 1 mg IM .X1 PRN PRN Reason: Hypoglycemia Guaifenesin (Robitussin) 20 ml PO Q4H PRN PRN PRN Reason: COUGH Hydralazine HCl (Apresoline Iv) 10 mg IV Q4H PRN PRN PRN Reason: SBP > 160 Iron Sucrose 200 mg/ Sodium (Chloride) 110 mls @ 220 mls/hr IV DAILY [facility] Stop: 09/13/19 10:29 Last Admin: 09/12/19 09:55 Dose: 220 mls/hr Documented by: Magnesium Hydroxide (Milk Of Magnesia) 30 ml PO DAILY PRN PRN PRN Reason: Constipation Melatonin (Melatonin) 3 mg PO QHS PRN PRN PRN Reason: INSOMNIA Metoprolol Tartrate (Lopressor (Beta Roni)) 25 mg PO DAILY [facility] Last Admin: 09/12/19 09:54 Dose: 25 mg Documented by: Morphine Sulfate () 2 mg IV Q3H PRN PRN PRN Reason: Pain Score 6-10/10 Last Admin: 09/12/19 06:50 Dose: 2 mg Documented by: Nitroglycerin (Nitrostat) 0.4 mg SUBLINGUAL Q5M PRN PRN Reason: CARDIAC/CHEST PAIN Ondansetron HCl (Zofran) 4 mg IV Q8H PRN PRN PRN Reason: NAUSEA/VOMITING Oxycodone HCl (Oxyir) 5 mg PO Q4H PRN PRN PRN Reason: Pain Score 4-5/10 Pantoprazole Sodium (Protonix) 40 mg PO DAILY [facility] Last Admin: 09/12/19 09:54 Dose: 40 mg Documented by: Paroxetine HCl (Paxil) 20 mg PO DAILY [facility] Last Admin: 09/12/19 09:54 Dose: 20 mg Documented by: [facility]accharide [facility] ([facility] Admin: 09/12/19 09:54 Dose: 150 mg Documented by: Potassium Chloride (K-Dur) [facility] Last Admin: 09/12/19 09:54 Dose: 20 meq Documented by: Prochlorperazine Edisylate (Compazine Iv) 5 mg IV Q4H PRN PRN PRN Reason: Breakthrough Nausea/Vomiting Psyllium Hydrophilic Mucilloid (Metamucil) 1 packet PO DAILY PRN PRN PRN Reason: Constipation Senna/Docusate Sodium (Senokot-S, Luly-Colace) 2 tablet PO BID PRN PRN PRN Reason: Constipation Sodium Chloride () 10 - 40 ml IV UD PRN PRN Reason: SALINE FLUSH Last Admin: 09/12/19 09:55 Dose: 20 ml Documented by: Throat Lozenges (Cepacol Sore Throat Lozenge) 1 lozenge MUCOUS MEM Q2H PRN PRN PRN Reason: SORE THROAT Medical Necessity - Tobacco Use Smoking Status: Former smoker Tobacco Use: Non-smoker Assessment/Plan All Active Problems Bilateral pleural effusion (Acute) Pericardial effusion (Acute) Former tobacco use (Acute) CHF exacerbation (Acute) RECOMMENDATIONS: 1. Continue scheduled Lasix. 2. Wean supplemental oxygen to maintain saturations at or above 90%. 3. Continue scheduled bronchodilators. 4. The patient will require a re-titration study on an outpatient basis. 5. Continue empiric BiPAP therapy 12/6 nightly. This should help assist with diuresis and alveolar recruitment. 6. Recommend outpatient pulmonary follow-up within 2 weeks of discharge. Baseline pulmonary function studies can be obtained at that time. IMPRESSIONS: 1. Acute on chronic hypoxemic respiratory failure Appears to be secondary to decompensated heart failure with preserved ejection fraction. The patient is responding clinically to the use of diuretics, which I would recommend continuing. Attempts at ultrasound-guided thoracentesis was unsuccessful due to limited pleural fluid pocket. Wean supplemental oxygen to maintain saturations at or above 90%. Encourage incentive spirometer use and mobilize patient as tolerated. 2. Self-reported COPD of unknown severity Patient does have an extensive previous smoking history. She is currently utilizing Symbicort on an outpatient basis. For now, agree with continuing kaye eduled bronchodilators. Upon follow-up in the pulmonary medicine clinic, orders can be placed to obtain baseline pulmonary function studies. 3. History of obstructive sleep apnea The patient does report a longstanding history of OLEG but is currently noncompliant with the use of nocturnal Pap therapy. Her current machine is nonfunctional. Therefore, I would recommend that she undergo a re-titration polysomnogram upon discharge from the hospital. We would then be able to place an order for new equipment for her. 4. History of tobacco dependency, now in remission/hypertension/history of coronary artery disease/anxiety/depression Complicates care, management, recovery and prognosis. Continue home medications as indicated. This note was generated with [employer] dictation software. It may contain incorrect words, spelling, and punctuation that were not noted in checking the note before signing. Code Visit Inpatient E&M: 82472 Subs Hosp L2
--- NOTE | 2019-09-12 11:15 | DCINST_ITS ---
- Discharge Diagnoses Current Active Problems: Current Active and Chronic Problems Dyspnea (Chronic) Bilateral pleural effusion (Acute) Pericardial effusion (Acute) COPD (chronic obstructive pulmonary disease) (Chronic) Chronic respiratory failure with hypoxia (Chronic) HTN (hypertension) (Chronic) HLD (hyperlipidemia) (Chronic) CAD (coronary artery disease) (Chronic) OLEG (obstructive sleep apnea) (Chronic) Anxiety and depression (Chronic) Former tobacco use (Acute) CHF exacerbation (Acute) You will use the following diet at home:: Cardiac - 2-3 g sodium daily, 2000 cc fluid daily. Your food should be the consistency of: Regular Your liquids should be the consistency of: Regular/Thin Discharge Activity: Return to Normal Activity Instructions: Thoracentesis Additional Instructions: He need to monitor your weight daily at the same time each day. If you notice a 2 pound weight gain within a 24-hour period or a 4 to 5 pound weight gain in the 7-day. You will need to call your doctor for further recommendations regarding her Lasix. He will need to have a BMP checked in about a week, contact your primary care physician to arrange this. Allergies/Adverse Reactions: Allergies No Known Allergies Allergy (Verified 09/10/19 13:21) Medications to take at Discharge Budesonide/Formoterol 160/4.5 [Symbicort 160/4.5 Mcg Inhaler (SP)] 2 puff INHALATION BID 09/10/19 Clopidogrel Bisulfate [Plavix] 75 mg PO DAILY 09/10/19 Ipratropium/Albuterol Respimat [Combivent Respimat Inhal [place]] 1 puff INHALATION 4X/DAY 09/10/19 Metoprolol Tartrate [Lopressor (beta annabel)] 25 mg PO DAILY 09/10/19 Nitroglycerin 0.4 mg SL PRN PRN 09/10/19 Omeprazole 40 mg PO DAILY 09/10/19 Paroxetine [Paxil] 20 mg PO DAILY 09/10/19 Ranitidine [Zantac] 150 mg PO DAILY 09/10/19 Furosemide [Lasix] 40 mg PO BID #60 tab 09/12/19 Iron Polysaccharide Complex [Ferrex 150] 150 mg PO DAILYCM #30 cap 09/12/19 Potassium Chloride [K-Dur] 20 meq PO BIDCM #60 tab 09/12/19 The following prescriptions were given: Iron Polysaccharide Complex [Ferrex 150] 150 mg PO DAILYCM #30 cap Transmission Status: Pending to [id number] Potassium Chloride [K-Dur] 20 meq PO BIDCM #60 tab Transmission Status: Pending to [id number] Furosemide [Lasix] 40 mg PO BID #60 tab Transmission Status: Pending to [id number] Primary Care Physician: Deon Alberts MD [Primary Care Provider] - Please follow up with your Primary Care Physician in: 1-2 weeks Test Results: Test results from this visit will be discussed in further detail at your follow- up appointment, if applicable. Please Follow Up With: Brandon Monreal DO When: 2 weeks Proposed Discharge Date: 09/12/19
--- NOTE | 2019-09-12 11:52 | CASEMGMT ---
Pt qualifies for home oxygen at this time and preference is for [facility] at this time. Pt needs 4liters with ambulation at this time. Referral faxed to [facility] at this time and call to Jered at [facility] to notify of referral/discharge at this time. Yony DOE CM
--- NOTE | 2019-09-12 12:00 | PHA.DC.MC ---
Pharmacy Service has performed discharge medication reconciliation and counseling for this patient. 1. FUROSEMIDE 40MG PO BID 2. POTASSIUM CHLORIDE 20MEQ PO BIDCM 3. FERREX 150MG PO DAILYCM The patient's discharge medication list was reviewed for discrepancies and discrepancies were resolved. Home Medications Budesonide/Formoterol 160/4.5 [Symbicort 160/4.5 Mcg Inhaler (SP)] 2 puff INHALATION BID 09/10/19 Clopidogrel Bisulfate [Plavix] 75 mg PO DAILY 09/10/19 Ipratropium/Albuterol Respimat [Combivent Respimat Inhal [place]] 1 puff INHALATION 4X/DAY 09/10/19 Metoprolol Tartrate [Lopressor (beta annabel)] 25 mg PO DAILY 09/10/19 Nitroglycerin 0.4 mg SL PRN PRN 09/10/19 Omeprazole 40 mg PO DAILY 09/10/19 Paroxetine [Paxil] 20 mg PO DAILY 09/10/19 Ranitidine [Zantac] 150 mg PO DAILY 09/10/19 Furosemide [Lasix] 40 mg PO BID #60 tab 09/12/19 Iron Polysaccharide Complex [Ferrex 150] 150 mg PO DAILYCM #30 cap 09/12/19 Potassium Chloride [K-Dur] 20 meq PO BIDCM #60 tab 09/12/19 The patient was counseled on the following discharge medications and changes in medications for homegoing were reviewed. The Reason for Use, instructions for use, and potential side effects were reviewed for all new medications. The patient's questions regarding all of their medications were answered. The patient was able to verbally demonstrate an understanding of their discharge medications.
--- NOTE | 2019-09-12 14:14 | DS.PCM_ITS ---
<Roberto Iglesias - Last Filed: 09/12/19 14:20> Discharge Date and Diagnosis Date of Admission: 09/10/19 Date of Discharge: 09/12/19 - Primary Discharge Diagnosis Active and Suspected Problems Acute diastolic congestive heart failure with bilateral pleural effusions Iron deficiency anemia COPD with chronic hypoxic respiratory failure HTN Hx CAD OLEG off CPAP Anx/Depression - Secondary Discharge Diagnosis Chronic Problems Dyspnea (Chronic) COPD (chronic obstructive pulmonary disease) (Chronic) Chronic respiratory failure with hypoxia (Chronic) HTN (hypertension) (Chronic) HLD (hyperlipidemia) (Chronic) CAD (coronary artery disease) (Chronic) OLEG (obstructive sleep apnea) (Chronic) Anxiety and depression (Chronic) Hospital Course and Treatment Imaging Results: RAD/Chest 1 View (Portable) IMPRESSION: 1. Mild cardiomegaly 2. Patchy pneumonic infiltrate in the right lung base CT/CTA Chest W/WO Contrast IMPRESSION: 1. Normal CTA chest examination, without a demonstrated pulmonary embolism or arterial dissection. 2. Large bilateral pleural effusions with bibasilar atelectasis. 3. Small pericardial effusion. Echo: Interpretation Summary Left ventricular systolic function is normal. The estimated ejection fraction is 60 %. Mild concentric left ventricular hypertrophy. The left atrium is mildly enlarged. Mild (1+) mitral valve insufficiency. Mild to moderate (1-2+) tricuspid valve insufficiency. Mild aortic stenosis. Mild (1+) aortic valve insufficiency. Trivial pulmonic valve insufficiency. Trivial to small pericardial effusion. There are no echocardiographic indications of cardiac tamponade. Right ventricular systolic pressure estimated to be 41 mmHg. There is evidence of diastolic dysfunction. US/Chest IMPRESSION: Only a tiny amount of pleural effusion was noted in both lung bases which has considerably decreased when compared with the previous CT of the chest obtained on 09/10/2019. For this reason, a thoracentesis was not performed. Consults: Pulmonary Medicine - [facility] Operations: None Procedures: 2-D Echocardiogram Summary of Care Provided: Hospital course: The patient is a 74 year old F with past medical history of chronic hypoxic respiratory failure secondary to COPD, diastolic congestive heart failure, CAD with prior stents, who presented to the emergency room with complaints of increased shortness of breath, increased PND, increased orthopnea. She had elevated beta natruretic peptide, his chest x-ray showed infiltrates, follow-up CT of the chest demonstrated large bilateral pleural effusions. She was admitted to the PCU and placed on telemetry for acute heart failure exacerbation. She had recently moved here from [place] and did not bring any of her oxygen equipment with her, and did not have a working CPAP machine anymore. With her large pleural effusions we attempted to obtain a thoracentesis and consulted pulmonary medicine. Unfortunately on ultrasound there is not enough fluid to be drained. She did respond well to IV Lasix with 5 pounds fluid loss in the first 24 hours. An echocardiogram was obtained which demonstrated preserved ejection fraction and some underlying pulmonary hypertension. The patient is active at home and in the community and will require oxygen in order to maintain adequate saturations up to 4 L with exertion. She was also noted to be significantly anemic with microcytosis. 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 TSH was normal. Stool occult blood was negative. She was given Venofer and started on oral iron. She was transitioned to oral Lasix and oral potassium supplementation. She was advised to follow-up with pulmonary medicine for PFTs and a new sleep study. She should follow-up with pulmonary in 2 weeks, she will also need to follow-up with the PCP in 1 to 2 weeks. She was discharged home in stable condition. This patient was seen by Roberto Iglesias PA-C under the supervision of Doctor Sawyer. [] - Physical Exam Vitals/I&O's: Vital Signs Temp Pulse Resp BP Pulse Ox 97.9 F 63 16 125/95 H 94 09/12/19 09:40 09/12/19 11:12 09/12/19 11:12 09/12/19 09:40 09/12/19 11:25 Oxygen Flow Rate (L/min) [1 ( 3 Initial Baseline)] Oxygen Flow Rate (L/min) [ 4 AMBULATION with Oxygen] Oxygen Flow Rate (L/min) [ 0 AMBULATING on Room Air] Oxygen Flow Rate (L/min) [At 0 REST on Room Air] Oxygen Flow Rate (L/min) 2 Oxygen Delivery Method [2] Room Air Oxygen Delivery Method [1 ( Nasal Cannula Initial Baseline)] Oxygen Delivery Method Room Air Weight: 202 lb 9.677 oz Body Mass Index (BMI) 33.2 Intake and Output for Last 24 Hours 09/10/19 09/11/19 09/12/19 23:59 23:59 23:59 Intake Total 1070 / 1070 530 / 530 Output Total 1350 / 1350 700 / 700 Balance -280 / -280 -170 / -170 General: Alert, Oriented x3, Cooperative HEENT: Atraumatic, PERRLA, EOMI, Normocephalic Neck: Supple, No JVD, Negative Carotid Bruits Lungs: Clear to auscultation, Diminished Cardiovascular: Regular rate, No murmurs Abdomen: Bowel Sounds Present, Soft, Non Tender Extremities: No edema, Capillary Refill Less than 3 Seconds Skin: No rashes, No breakdown Musculoskeletal: No Tenderness to Palpation of Joints or Extremities Neurological: Cranial nerves II-XII grossly intact Psych/Mental Status: Normal Affect, Appropriate, Alert and oriented to time, place, person, mood and affect Microbiology Past 72 Hours 09/12/19 06:40 Stool Stool Occult Blood (BAKARI) - Final Laboratory Results 09/12/19 06:25: WBC 5.6, RBC 3.79 L, Hgb 8.7 L, Hct 30.1 L, MCV 79.4 L, MCH 23.0 L, MCHC 28.9 L, RDW Std Deviation 46.0 H, RDW Coeff of Ganesh 16.2 H, Plt Count 231, MPV 11.1, Immature Gran % (Auto) 0.900, Neut % (Auto) 70.1 H, Lymph % (Auto) 11.3 L, [place] % (Auto) 10.6 H, Eos % (Auto) 6.0 H, Baso % (Auto) 1.1 H, Absolute Neuts (auto) 4.0, Absolute Lymphs (auto) 0.64 L, Nucleated RBC % 0 09/12/19 06:25: Sodium 135 L, Potassium 3.8, Chloride 98, Carbon Dioxide 32.0, Anion Gap 5, BUN 16, Creatinine 1.04 H, Estim Creat Clear Calc 44.00, Est GFR (MDRD) Af Amer 67, Est GFR (MDRD) Non-Af 55 L, BUN/Creatinine Ratio 15.4, Glucose 92, Calcium 8.7 Current Medications Acetaminophen (Tylenol) 650 mg PO Q6H PRN PRN PRN Reason: Pain Score 1-10/Temp > 100.7 F Al Hydroxide/Mg Hydroxide (Mylanta Ii) 30 ml PO Q6H PRN PRN PRN Reason: Gastric Burning Albuterol Sulfate (Ventolin Aerosols) 2.5 mg INHALATION Q2H PRN PRN PRN Reason: dyspnea, wheezing Albuterol/Ipratropium (Duoneb) 3 ml INHALATION Q4HWA.RT [facility] Last Admin: 09/12/19 11:12 Dose: 3 ml Documented by: Dextrose (D50w Syringe) 0 gm IV X1 PRN; Protocol PRN Reason: Hypoglycemia Famotidine (Pepcid) 20 mg PO DAILY [facility] Last Admin: 09/12/19 09:54 Dose: 20 mg Documented by: Furosemide (Lasix) 40 mg IV BIDLX [facility] Last Admin: 09/12/19 09:54 Dose: 40 mg Documented by: Glucagon () 1 mg IM .X1 PRN PRN Reason: Hypoglycemia Guaifenesin (Robitussin) 20 ml PO Q4H PRN PRN PRN Reason: COUGH Hydralazine HCl (Apresoline Iv) 10 mg IV Q4H PRN PRN PRN Reason: SBP > 160 Iron Sucrose 200 mg/ Sodium (Chloride) 110 mls @ 220 mls/hr IV DAILY [facility] Stop: 09/13/19 10:29 Last Infusion: 09/12/19 10:25 Dose: Infused Documented by: Magnesium Hydroxide (Milk Of Magnesia) 30 ml PO DAILY PRN PRN PRN Reason: Constipation Melatonin (Melatonin) 3 mg PO QHS PRN PRN PRN Reason: INSOMNIA Metoprolol Tartrate (Lopressor (Beta Roni)) 25 mg PO DAILY [facility] Last Admin: 09/12/19 09:54 Dose: 25 mg Documented by: Morphine Sulfate () 2 mg IV Q3H PRN PRN PRN Reason: Pain Score 6-10/10 Last Admin: 09/12/19 06:50 Dose: 2 mg Documented by: Nitroglycerin (Nitrostat) 0.4 mg SUBLINGUAL Q5M PRN PRN Reason: CARDIAC/CHEST PAIN Ondansetron HCl (Zofran) 4 mg IV Q8H PRN PRN PRN Reason: NAUSEA/VOMITING Oxycodone HCl (Oxyir) 5 mg PO Q4H PRN PRN PRN Reason: Pain Score 4-5/10 Pantoprazole Sodium (Protonix) 40 mg PO DAILY [facility] Last Admin: 09/12/19 09:54 Dose: 40 mg Documented by: Paroxetine HCl (Paxil) 20 mg PO DAILY [facility] Last Admin: 09/12/19 09:54 Dose: 20 mg Documented by: Polysaccharide [facility] Admin: 09/12/19 09:54 Dose: 150 mg Documented by: Potassium Chloride (K-Dur) [facility] Last Admin: 09/12/19 09:54 Dose: 20 meq Documented by: Prochlorperazine Edisylate (Compazine Iv) 5 mg IV Q4H PRN PRN PRN Reason: Breakthrough Nausea/Vomiting Psyllium Hydrophilic Mucilloid (Metamucil) 1 packet PO DAILY PRN PRN PRN Reason: Constipation Senna/Docusate Sodium (Senokot-S, Luly-Colace) 2 tablet PO BID PRN PRN PRN Reason: Constipation Sodium Chloride () 10 - 40 ml IV UD PRN PRN Reason: SALINE FLUSH Last Admin: 09/12/19 09:55 Dose: 20 ml Documented by: Throat Lozenges (Cepacol Sore Throat Lozenge) 1 lozenge MUCOUS MEM Q2H PRN PRN PRN Reason: SORE THROAT Discharge Diet: Low fat/ Low Cholesterol, - - 2-3 g Na daily, 2000 cc fluid restriction. Discharge Activity: Return to Normal Activity Home Medications: Medications to take at Discharge Budesonide/Formoterol 160/4.5 [Symbicort 160/4.5 Mcg Inhaler (SP)] 2 puff INHALATION BID 09/10/19 Clopidogrel Bisulfate [Plavix] 75 mg PO DAILY 09/10/19 Ipratropium/Albuterol Respimat [Combivent Respimat Inhal Regent] 1 puff INHALATION 4X/DAY 09/10/19 Metoprolol Tartrate [Lopressor (beta roni)] 25 mg PO DAILY 09/10/19 Nitroglycerin 0.4 mg SL PRN PRN 09/10/19 Omeprazole 40 mg PO DAILY 09/10/19 Paroxetine [Paxil] 20 mg PO DAILY 09/10/19 Ranitidine [Zantac] 150 mg PO DAILY 09/10/19 Furosemide [Lasix] 40 mg PO BID #60 tab 09/12/19 Iron Polysaccharide Complex [Ferrex 150] 150 mg PO DAILY #30 cap 09/12/19 Potassium Chloride [K-Dur] 20 meq PO BIDCM #60 tab 09/12/19 Following Prescrptions Were Given to Patient: Iron Polysaccharide Complex [Ferrex 150] 150 mg PO DAILYCM #30 cap Transmission Status: Received by [id number] Potassium Chloride [K-Dur] 20 meq PO BIDCM #60 tab Transmission Status: Received by [id number] Furosemide [Lasix] 40 mg PO BID #60 tab Transmission Status: Received by [id number] Primary Care Physician: Deon Alberts MD [Primary Care Provider] - Please follow up with your Primary Care Physician in: 1-2 weeks Please Follow Up With: Brandon Monreal DO When: 2 weeks Patient Instructions: Thoracentesis Disposition: Home Minutes spent on discharge:: 35 Patient Condition:: Stable Medical Necessity - Tobacco Use Smoking Status: Former smoker Tobacco Use: Non-smoker Meaningful Use Info Meaningful Use Diagnoses (Choose all that apply): CHF - CHF DIEGO/ARB ordered at discharge?: No Reason DIEGO/ARB not ordered?: Worsening renal function Documented LVEF (%): 60 <Carlos Sawyer - Last Filed: 09/12/19 14:31> Discharge Date and Diagnosis - Secondary Discharge Diagnosis Chronic Problems Dyspnea (Chronic) COPD (chronic obstructive pulmonary disease) (Chronic) Chronic respiratory failure with hypoxia (Chronic) HTN (hypertension) (Chronic) HLD (hyperlipidemia) (Chronic) CAD (coronary artery disease) (Chronic) OLEG (obstructive sleep apnea) (Chronic) Anxiety and depression (Chronic) Hospital Course and Treatment Summary of Care Provided: This patient was seen in conjunction with Roberto Iglesias PA-C . I have independently interviewed and examined the patient and reviewed pertinent historical, laboratory, and other data. Please refer to Roberto Iglesias PA-C note for details of this patient's presentation, findings, and recommendations. I have reviewed Roberto Iglesias PA-C note and concur with documented findings. In brief, patient is a 74-year-old lady who presented with progressive shortness of breath. Imaging studies obtained demonstrated bilateral pleural effusion as well as pulmonary vascular congestion admitted to monitored bed for further management Assessment: 1. Acute respiratory insufficiency 2. Acute on chronic congestive heart failure with preserved ejection fraction 3. Bilateral pleural effusion secondary to congestive heart failure 4. Chronic hypoxic respiratory failure 5. Essential hypertension 6. Coronary artery disease 7. Depression with anxiety 8. Obstructive sleep apnea 9. Obesity with BMI of 32.2 Hospital course as documented above - Physical Exam Vitals/I&O's: Vital Signs Temp Pulse Resp BP Pulse Ox 97.9 F 63 16 125/95 H 94 09/12/19 09:40 09/12/19 11:12 09/12/19 11:12 09/12/19 09:40 09/12/19 11:25 Oxygen Flow Rate (L/min) [1 ( 3 Initial Baseline)] Oxygen Flow Rate (L/min) [ 4 AMBULATION with Oxygen] Oxygen Flow Rate (L/min) [ 0 AMBULATING on Room Air] Oxygen Flow Rate (L/min) [At 0 REST on Room Air] Oxygen Flow Rate (L/min) 2 Oxygen Delivery Method [2] Room Air Oxygen Delivery Method [1 ( Nasal Cannula Initial Baseline)] Oxygen Delivery Method Room Air Weight: 91.9 kg Body Mass Index (BMI) 33.2 Intake and Output for Last 24 Hours 09/10/19 09/11/19 09/12/19 23:59 23:59 23:59 Intake Total 1070 / 1070 530 / 530 Output Total 1350 / 1350 700 / 700 Balance -280 / -280 -170 / -170 Microbiology Past 72 Hours 09/12/19 06:40 Stool Stool Occult Blood (BAKARI) - Final Laboratory Results 09/12/19 06:25: WBC 5.6, RBC 3.79 L, Hgb 8.7 L, Hct 30.1 L, MCV 79.4 L, MCH 23.0 L, MCHC 28.9 L, RDW Std Deviation 46.0 H, RDW Coeff of Ganesh 16.2 H, Plt Count 231, MPV 11.1, Immature Gran % (Auto) 0.900, Neut % (Auto) 70.1 H, Lymph % (Auto) 11.3 L, [place] % (Auto) 10.6 H, Eos % (Auto) 6.0 H, Baso % (Auto) 1.1 H, Absolute Neuts (auto) 4.0, Absolute Lymphs (auto) 0.64 L, Nucleated RBC % 0 09/12/19 06:25: Sodium 135 L, Potassium 3.8, Chloride 98, Carbon Dioxide 32.0, Anion Gap 5, BUN 16, Creatinine 1.04 H, Estim Creat Clear Calc 44.00, Est GFR (MDRD) Af Amer 67, Est GFR (MDRD) Non-Af 55 L, BUN/Creatinine Ratio 15.4, Glucose 92, Calcium 8.7 Code Visit Inpatient E&M: 61321 Disch Hosp
== END 2019-09-12 14:22 | disposition home or self-care (01) | DRG 292 ==
LOC: ED 17:05 → PCU 17:20
PROVIDERS: Physician Assistant; Admitting Provider Family Medicine; Emergency Provider Emergency Medicine; PCP Family Medicine; Visit Provider Internal Medicine
DX: I11.0 Hypertensive heart disease with heart failure (principal); J91.8 Pleural effusion in other conditions classified elsewhere; J96.11 Chronic respiratory failure with hypoxia; J44.9 Chronic obstructive pulmonary disease, unspecified; I50.33 Acute on chronic diastolic (congestive) heart failure; I25.10 Atherosclerotic heart disease of native coronary artery without angina pectoris; E66.9 Obesity, unspecified; K21.9 Gastro-esophageal reflux disease without esophagitis; D50.9 Iron deficiency anemia, unspecified; G47.33 Obstructive sleep apnea (adult) (pediatric); E78.5 Hyperlipidemia, unspecified; F41.8 Other specified anxiety disorders; Z68.33 Body mass index [BMI] 33.0-33.9, adult; Z91.19 Patient's noncompliance with other medical treatment and regimen; Z87.891 Personal history of nicotine dependence; Z95.5 Presence of coronary angioplasty implant and graft
CPT/HCPCS: 36415; 71045; 71275; 76604; 80048; 80061; 80076; 82274; 82728; 83540; 83550; 83615; 83735; 83880; 84156; 84443; 84484; 85025; 85610; 85730; 93005; 93306; 94640; 99285; 99406; J1756; Q9957; Q9967; A4216; J1940

== ENCOUNTER 2019-11-13 12:57 | Emergency (ER) | payer MEDICARE, SELFPAY ==
[2019-09-10 18:11] VITALS: BMI 33.2
[2019-11-13 12:58] VITALS: BP 152/70; PULSE 84; RESP 18; TEMP 36.6; O2SAT 100; BMI 30.7
--- NOTE | 2019-11-13 13:18 | EKG12_ITS ---
Test Reason : Blood Pressure : / mmHG Vent. Rate : 071 BPM Atrial Rate : 071 BPM P-R Int : 180 ms QRS Dur : 086 ms QT Int : 480 ms P-R-T Axes : 022 023 030 degrees QTc Int : 521 ms Normal sinus rhythm Nonspecific ST abnormality Prolonged QT Abnormal ECG Confirmed by HE YATES ([id number]), business editor ALICIA BERGERON ([id number]) on 11/19/2019 2:47:52 PM Referred By: PC Confirmed By:HE YATES
--- NOTE | 2019-11-13 13:18 | RAD_ITS ---
STUDY: X-RAY CHEST REASON FOR EXAM: Female, 74 years old. Increase SOB TECHNIQUE: Single AP portable view of the chest. COMPARISON: Comparison is made with prior study dated September 10, 2019. FINDINGS: EKG electrodes are seen. The lungs are clear and expanded. There is no demonstrated pleural abnormality. There is moderate cardiac enlargement. Prominence of the superior mediastinal region most likely secondary to ectasia of the cervical vessels. Normal visualized pulmonary arteries. There is atherosclerotic tortuosity of the aortic arch and descending thoracic aorta. Normal visualized thoracic spine. Healed right rib fractures. There is no demonstrated abnormality of the visualized soft tissue structures of the upper abdomen. RAD/Chest 1 View (Portable) IMPRESSION: Moderate cardiomegaly. Electronically Signed: Derrick Miller, at 15:28 EDT , Service support ,
--- NOTE | 2019-11-13 13:31 | ED.VIS.GEN ---
History of Present Illness Chief Complaint: Shortness of Breath Narrative: Patient presents with dyspnea for the past 3 days. She has a history of COPD, she is on oxygen at home, she has not increased her oxygen she has been using her nebulizing machine a few times every day. She has no fever or chills she has a cough but no production of sputum. No sick contacts, she was recently admitted for similar symptoms. Past Medical History - Allergies and Home Meds Allergies/Adverse Reactions: Allergies No Known Allergies Allergy (Verified 09/10/19 13:21) Primary Care Physician: Deon Alberts MD [Primary Care Provider] - Past Medical History: - - COPD, coronary disease, hypertension hypercholesterolemia Surgical History: - - PCI x2 most recently 10/2017, tonsillectomy, appendectomy, cholecystectomy, hysterectomy. Smoking Status: Former smoker - Family History Maternal Family History: Reports: - - Patient notes a maternal family history of heart disease as well as cancer, notes unclear of cancer type, past when she was only 5 years old. Paternal Family History: Reports: - - Patient notes a paternal family history of heart disease as well as cancer, specifically stomach cancer. Review of Systems General: Denies: Fever Eyes: Denies: Visual changes - bilaterally Cardiovascular: Denies: Chest pain, Palpitations Respiratory: Reports: Dyspnea, Cough. Denies: Sputum Gastrointestinal: Denies: Abdominal pain, Nausea Genitourinary: Denies: Dysuria Musculoskeletal: Denies: Myalgias, Neck pain Skin: Denies: Rash Neurological: Denies: Headache, Weakness Psych: Denies: Depression Endocrine: Denies: Polyuria Hematologic: Denies: Easy bruising Physical Exam Vital Signs/Narrative: Vital Signs Temp Pulse Resp BP Pulse Ox 11/13/19 12:58 97.9 F 84 18 152/70 H 100 General: Well nourished, Well developed Eyes: Perrl, EOMI ENT: Moist mucous membranes Neck: Supple Cardiovascular: Regular rate, Regular rhythm Respiratory: No distress, - - She is speaking in full sentences she has some scant end expiratory wheezing and some coarse breath sounds. Abdomen: Soft, Nontender Back: Nontender, Normal Inspection Extremities: Nontender, No edema Skin: Normal color Neurological: Alert, Oriented x3 Psychological: Normal affect Diagnostic/Tx/Re-eval - Medical Decision Making Patient has no blood work or x-ray back yet. I also ordered CT angiogram. Care of the patient will be turned over to the oncoming emergency physician. ED Disposition - Plan for ED Patient: Diagnosis: COPD (chronic obstructive pulmonary disease) Referrals: Deon Alberts MD [Primary Care Provider] -
--- NOTE | 2019-11-13 13:42 | CT_ITS ---
STUDY: CTA CHEST REASON FOR EXAM: Female, 74 years old. SOB, home O2 for asthma, COPD, former smoker, hypertension. RADIATION DOSAGE (If Supplied By Facility): CTDIvol = ( 12.34 ) mGy, DLP = ( 536.84 ) mGycm TECHNIQUE: The examination was performed with the intravenous administration of 75mL Isovue 300. Post-processing of the angiographic images was performed, with multiplanar reformation and 3D reconstruction. Individualized dose optimization techniques were used for this CT. COMPARISON: Comparison is made with prior study dated September 10, 2019. FINDINGS: Normal enhancement of the main pulmonary artery and right and left pulmonary arteries. Normal enhancement of the bilateral peripheral pulmonary arteries. There is no demonstrated pulmonary embolism. Normal thoracic aorta and visualized great vessels. There is no demonstrated aortic dissection. Small pericardial effusion more prominent at the base of the pericardium and anterior aspect of the pericardium. Normal mediastinum. Normal hilar regions. Normal visualized trachea and bronchi. The lungs are well expanded. Normal pulmonary parenchyma. Minimal left pleural thickening. Normal chest wall structures. Multiple healed rib fractures. The patient is status post cholecystectomy. Surgical clips are seen in the gastric region. CT/CTA Chest W/WO Contrast IMPRESSION: Small pericardial effusion. Minimal right pleural thickening. No evidence of pulmonary embolism. Electronically Signed: Derrick Miller, at 15:27 EDT , Service support ,
[2019-11-13 13:50] VITALS: O2SAT 100
[2019-11-13 14:02] LABS: Absolute Lymphocyte Count 0.54 X10^3/uL (0.83-4.51); Absolute Neutrophil Count 3.2 X10^3/uL (2.0-7.7); Basophil# 0.04 X10^3/uL; Basophil% 0.9 % (0-1); Eosinophil# 0.14 X10^3/uL; Eosinophils% 3.3 % (0-5); Hematocrit 29.5 % (37-47); Hemoglobin 9.2 g/dL (12.0-15.0); Lymphocyte # 0.54 X10^3/ul (4.0); Lymphocyte % 12.6 % (19-41); Mean Corp Hgb Conc 31.2 g/dL (32-36); Mean Corpuscular Hgb 27.9 pg (27.0-32.0); Mean Corpuscular Volume 89.4 fL (81-99); Mean Platelet Vol. 9.7 fl (6.2-12.0); Monocyte# 0.36 X10^3/uL; Monocyte% 8.4 % (0-10); NRBC Flagged by Analyzer 0 % (0-5); Neutrophil # 3.17 X10^3/uL (2.7-7.7); Neutrophil % 74.3 % (47-70); POSITIVE DIFFERENTIAL YES; POSITIVE MORPHOLOGY YES; Platelet Count 177 K/mm3 (150-450); RBC Distribution Width SD 65.2 fl (35.1-43.9); White Blood Count 4.3 K/mm3 (4.4-11.0)
[2019-11-13 14:08] LABS: Differential Indicated SCAN CRITERIA MET
[2019-11-13 14:27] LABS: ALB/GLOB Ratio 1.4 RATIO (0.9-2.4); AST(SGOT) 16 U/L (15-37); Alanine Aminotransfer ALT/SGPT 19 U/L (13-56); Albumin, Serum 3.8 g/dL (3.2-5.0); Alkaline Phosphatase 100 U/L (45-117); Anion Gap 6 (5-15); BUN 38 mg/dL (7-18); BUN/Creat Ratio 22.8 RATIO (10-20); Calcium,Total 8.6 mg/dL (8.5-10.1); Chloride 106 mmol/L (98-107); Creatinine, Serum 1.67 mg/dL (0.55-1.02); EST Glomerular Filtration Rate 32 mL/min (>60); Est Glom Filt Rate - Afr Amer 39 mL/min (>60); Estimated Creatinine Clearance 28.51 ml/min; Globulin 2.8 g/dL (2.2-4.2); Glucose 87 mg/dL (74-106); Potassium 3.4 mmol/L (3.5-5.1); Protein, Total 6.6 g/dL (6.4-8.2); Sodium Level 140 mmol/L (136-145)
[2019-11-13 14:31] LABS: Anisocytosis 1+
[2019-11-13 15:00] VITALS: BP 149/52; PULSE 62; RESP 20; O2SAT 100
--- NOTE | 2019-11-13 15:37 | ED.VISSUMM ---
- ER Visit Summary Date of Service: 11/13/19 This patient was checked out to me with labs and CTA of the chest pending. These have returned. Test Results: Abnormal Lab Results 11/13/19 11/13/19 13:45 13:45 WBC 4.3 L RBC 3.30 L Hgb 9.2 L Hct 29.5 L MCV 89.4 MCH 27.9 MCHC 31.2 L RDW Std Deviation 65.2 H RDW Coeff of Ganesh 20.0 H Plt Count 177 MPV 9.7 Immature Gran % (Auto) 0.500 Neut % (Auto) 74.3 H Lymph % (Auto) 12.6 L [place] % (Auto) 8.4 Eos % (Auto) 3.3 Baso % (Auto) 0.9 Absolute Neuts (auto) 3.2 Absolute Lymphs (auto) 0.54 L Nucleated RBC % 0 Differential Comment COMMENT Diff Path Review May foll Anisocytosis 1+ Sodium 140 Potassium 3.4 L Chloride 106 Carbon Dioxide 28.0 Anion Gap 6 BUN 38 H Creatinine 1.67 H Estim Creat Clear Calc 28.51 Est GFR (MDRD) Af Amer 39 L Est GFR (MDRD) Non-Af 32 L BUN/Creatinine Ratio 22.8 H Glucose 87 Calcium 8.6 Total Bilirubin 0.60 AST 16 ALT 19 Alkaline Phosphatase 100 Troponin I < 0.015 Total Protein 6.6 Albumin 3.8 Globulin 2.8 Albumin/Globulin Ratio 1.4 Clinical Impression(s) from Imaging Studies Chest X-Ray 11/13/19 13:18 IMPRESSION: Moderate cardiomegaly. Electronically Signed: Derrick Miller, at 15:28 EDT , Service support , Chest CTA 11/13/19 13:42 IMPRESSION: Small pericardial effusion. Minimal right pleural thickening. No evidence of pulmonary embolism. Electronically Signed: Derrick Miller, at 15:27 EDT , Service support , Emergency Department Course and Treatment: Patient is resting comfortably. She was given prednisone and doxycycline p.o. Treatment Plan: Patient reports that she has a cough began 2 days ago. She will be discharged with doxycycline and a 5-day burst of prednisone. States that she quit smoking approximately 20 years ago. She has oxygen and a nebulizer at home. She is instructed to continue to use these. Follow-up with her primary care physician in 1 week if not improving. Return to the emergency department for any worsening symptoms. Disposition: To home in improved and stable condition. Impression: 1. COPD exacerbation. This note was generated with [employer] dictation software. It may contain incorrect words, spelling, and punctuation that were not noted in review of the chart prior to signing ED Disposition - Plan for ED Patient: Diagnosis: COPD (chronic obstructive pulmonary disease) Instructions: ED COPD Flare Prescriptions: Prednisone [Deltasone] 40 mg PO DAILY #10 tablet Doxycycline 100 mg PO BID #14 capsule Referrals: Deon Alberts MD [Primary Care Provider] - 1 Week if not improving
[2019-11-13 15:44] VITALS: BP 159/47; PULSE 64; RESP 16; O2SAT 100
[2019-11-13] MEDS: predniSONE 20 MG Tablet 40 MG PO (15:46)
[2019-11-13] MEDS: Doxycycline 100 MG CAPSULE PO (15:47)
[2019-11-14 10:02] LABS: Pathologist Review Reviewed
== END 2019-11-13 15:56 | disposition home or self-care (01) ==
LOC: ED 15:08
PROVIDERS: Emergency Provider Emergency Medicine; PCP Family Medicine
DX: J44.1 Chronic obstructive pulmonary disease with (acute) exacerbation (principal); Z99.81 Dependence on supplemental oxygen; I10 Essential (primary) hypertension; E78.00 Pure hypercholesterolemia, unspecified; Z79.51 Long term (current) use of inhaled steroids; Z79.52 Long term (current) use of systemic steroids; Z79.899 Other long term (current) drug therapy; Z87.891 Personal history of nicotine dependence
CPT/HCPCS: 71045; 71275; 80053; 84484; 85025; 93005; 99285; Q9967; A4216

== ENCOUNTER 2019-12-04 10:05 | Inpatient (IN) | payer MEDICARE, SELFPAY ==
[2019-12-04] VITALS (7 sets, daily range): BP systolic 105–153; BP diastolic 57–70; PULSE 65–82; RESP 18–28; TEMP 36.5–36.9; O2SAT 93–100; BMI 33.9; BMI 34.7
--- NOTE | 2019-12-04 10:50 | EKG12_ITS ---
Test Reason : Blood Pressure : / mmHG Vent. Rate : 072 BPM Atrial Rate : 072 BPM P-R Int : 166 ms QRS Dur : 086 ms QT Int : 406 ms P-R-T Axes : 023 010 013 degrees QTc Int : 444 ms Normal sinus rhythm Normal ECG Confirmed by MIREYA INFANTE MD ([id number]), video effects editor ALICIA BERGERON ([id number]) on 12/11/2019 2:49:27 PM Referred By: CORINA Confirmed By:MIREYA INFANTE MD
--- NOTE | 2019-12-04 10:56 | ED.VISSUMM ---
- ER Visit Summary Date of Service: 12/04/19 Chief Complaint: Abnormal labs History of Present Illness: The patient is a 74 F who presents with abnormal labs were noticed yesterday. Patient had labs drawn yesterday which showed a BUN of 80 and a creatinine of 2.97. Potassium was 5.5. Patient states she has been having some dizziness and weakness. Patient denies any chest pain or palpitations. Patient denies any shortness of breath or cough. Patient denies any fevers or chills. Patient denies any prior history of kidney disease. Patient states she has a history of COPD. Physical Examination: Vital signs are stable. Patient is afebrile. Patient is in no acute distress. Oral mucosa is pink and moist. Neck is supple. Trachea is midline. There is no JVD noted. Heart was regular rate and rhythm. Lungs are missed but clear bilaterally. Abdomen is soft. Bowel sounds are normal. There is no tenderness. There is no rebound or guarding noted. Skin is warm dry. Cranial nerves II through XII are intact. There are no focal motor or sensory deficits noted. Extremities are intact. There is no calf tenderness or edema. Test Results: CBC shows a mild anemia with a hemoglobin of 9.1 and hematocrit of 29.0. Basic metabolic profile showed a BUN of 81 and a creatinine of 2.98. Potassium was 5.1. Urinalysis does not show any evidence of urinary tract infection. Troponin is normal. EKG showed a normal sinus rhythm with a rate of 72. There are no acute ST or T wave changes. There are no peaked T waves. There is no change compared to previous EKG dated 11/13/2019. Emergency Department Course and Treatment: Patient was given IV fluids here. Case was discussed with the hospitalist. She will admit the patient to her service. Patient understood and was agreeable with the plan. All questions were answered. Disposition: Admit to hospital Impression: Acute kidney injury This note was generated with [employer] dictation software. It may contain incorrect words, spelling, and punctuation that were not noted in review of the chart prior to signing ED Disposition - Plan for ED Patient: Disposition: Acute Care [facility] Diagnosis: Acute kidney injury Referrals: Deon Alberts MD [Primary Care Provider] -
[2019-12-04 11:33] LABS: Absolute Lymphocyte Count 0.71 X10^3/uL (0.83-4.51); Basophil# 0.05 X10^3/uL; Basophil% 0.7 % (0-1); Eosinophil# 0.27 X10^3/uL; Eosinophils% 3.5 % (0-5); Hemoglobin 9.1 g/dL (12.0-15.0); Lymphocyte # 0.71 X10^3/ul (4.0); Lymphocyte % 9.3 % (19-41); Mean Corp Hgb Conc 31.4 g/dL (32-36); Mean Corpuscular Hgb 29.4 pg (27.0-32.0); Mean Corpuscular Volume 93.5 fL (81-99); Mean Platelet Vol. 10.3 fl (6.2-12.0); Monocyte% 6.6 % (0-10); NRBC Flagged by Analyzer 0 % (0-5); Neutrophil % 78.7 % (47-70); Platelet Count 191 K/mm3 (150-450); RBC Distribution Width CV 17.1 % (11.6-14.6); RBC Distribution Width SD 58.6 fl (35.1-43.9); White Blood Count 7.6 K/mm3 (4.4-11.0)
[2019-12-04 11:49] LABS: ALB/GLOB Ratio 1.1 RATIO (0.9-2.4); AST(SGOT) 11 U/L (15-37); Alanine Aminotransfer ALT/SGPT 14 U/L (13-56); Albumin, Serum 3.3 g/dL (3.2-5.0); Alkaline Phosphatase 96 U/L (45-117); Anion Gap 7 (5-15); BUN 81 mg/dL (7-18); BUN/Creat Ratio 27.2 RATIO (10-20); Calcium,Total 8.7 mg/dL (8.5-10.1); Chloride 106 mmol/L (98-107); Creatinine, Serum 2.98 mg/dL (0.55-1.02); EST Glomerular Filtration Rate 16 mL/min (>60); Est Glom Filt Rate - Afr Amer 20 mL/min (>60); Estimated Creatinine Clearance 15.36 ml/min; Globulin 2.9 g/dL (2.2-4.2); Glucose 91 mg/dL (74-106); Potassium 5.1 mmol/L (3.5-5.1); Protein, Total 6.2 g/dL (6.4-8.2); Sodium Level 139 mmol/L (136-145)
[2019-12-04 12:18] LABS: Bacteria 0 SEEN /hpf (None Seen); Mucous, Urine 0 SEEN /hpf (<or=2+); Red Blood Cells-Urine 0 SEEN /hpf (0-5); Squamous Epithelial Cells - UA 0 SEEN /hpf (5-10); White Blood Cells 0 SEEN /hpf (0-5)
[2019-12-04 12:21] LABS: Color, Urine Yellow (Yellow); Glucose, Dipstick Normal (Normal); Ketone-Dipstick Negative (Negative); Leukocyte Esterase-Dipstick Negative /ul (Negative); Nitrite-Dipstick Negative (Negative); Occult Blood-Urine Negative /ul (Negative); Protein-Dipstick Negative (Negative); Specific Gravity, Urine 1.015 (1.002-1.030); Urine Bilirubin Dipstick Negative (Negative); Urine Clarity Sl. Cloudy (Clear); Urine Urobilinogen Normal (Normal)
[2019-12-04] MEDS: 0.9% Normal Saline 1,000 ML 1000 ML IV (12:30)
[2019-12-04 12:43] LABS: Amorphous Sediment 2+
--- NOTE | 2019-12-04 13:29 | HP.PCM_ITS ---
History of Present Illness Date of Admission: 12/04/19 Chief Complaint: abnormal labs The patient is a 74 year old F with a PMH as outlined who was admitted via the ED on 12/04/2019 o/a of abnormal labs. Patient went to see her PCP yesterday and labs were done which showed INDIA with hyperkalemia. She was therefore asked to come to the ED today. On admission in the ED, labs done showed creatinine of 2.98 with potassium of 5.1. Of note, patient denied any palpitations or dizziness and denied any fever or chills. She however admitted to not having a good appetite over the past week as well as having bloody diarrhea over the past week. She says diarrhea is royal blood. She has not had such bleeding in the past and is wondering whether she might have hemorrhoids. She denied any nausea or vomiting and review of systems was otherwise negative. She is not on any blood thinners and wears 6 L of oxygen for pulmonary hypertension. Vitals were significant for tachypnea on admission with respiratory of 28 but was down to 20 at time of review. She was on 5 L of oxygen which is her baseline. Hemoglobin was 9.1 with white cell count of 7.6 platelets of 191. She has been admitted to be managed for INDIA and rectal bleeding. [] Past Medical History Past Medical History (Chronic Problems): Chronic Problems Dyspnea (Chronic) COPD (chronic obstructive pulmonary disease) (Chronic) Chronic respiratory failure with hypoxia (Chronic) HTN (hypertension) (Chronic) HLD (hyperlipidemia) (Chronic) CAD (coronary artery disease) (Chronic) OLEG (obstructive sleep apnea) (Chronic) Anxiety and depression (Chronic) Allergies No Known Allergies Allergy (Verified 12/04/19 10:14) Home Medications: Ambulatory Orders Medication Instructions Recorded Budesonide/Formoterol 160/4.5 2 puff INHALATION BID 09/10/19 [Symbicort 160/4.5 Mcg Inhaler (SP)] Clopidogrel Bisulfate [Plavix] 75 mg PO DAILY 09/10/19 Ipratropium/Albuterol Respimat 1 puff INHALATION 4X/DAY 09/10/19 [Combivent Respimat Inhal [place]] Atorvastatin Calcium [Lipitor] 40 mg PO QHS 11/13/19 Diclofenac [Voltaren] 75 mg PO BID 11/13/19 Doxycycline 100 mg PO BID #14 cap 11/13/19 Doxycycline Hyclate 100 mg PO BID 11/13/19 Famotidine 40 mg PO BID 11/13/19 Furosemide [Lasix] 40 mg PO BID 11/13/19 Lisinopril [Prinivil] 10 mg PO DAILY 11/13/19 Paroxetine HCl [Paxil] 30 mg PO DAILY 11/13/19 Potassium Chloride [K-Dur] 20 meq PO BIDCM 11/13/19 Prednisone 20 mg PO BID 11/13/19 Prednisone [Deltasone] 40 mg PO DAILY #10 tab 11/13/19 Topiramate 50 mg PO QHS 11/13/19 Surgical History: - - PCI x2 most recently 10/2017, tonsillectomy, appendectomy, cholecystectomy, hysterectomy. 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 Paternal History Items: - - Patient notes a paternal family history of heart disease as well as cancer, specifically stomach cancer. Review of Systems Constitutional: Reports: Anorexia. Denies: Chills, Fever, Malaise, Weakness, Fatigue Eyes: Denies: Blurred vision HEENT: Denies: Head Aches, Sinus Congestion, Sinus Drainage Cardiovascular: Denies: Chest Pain, Palpitations Respiratory: Denies: Cough, Shortness of Breath, Shortness of breath at rest, Shortness of breath upon exertion, Sputum production Gastrointestinal: Reports: Diarrhea, Hematochezia. Denies: Abdominal Pain, Nausea, Vomiting Genitourinary: Denies: Dysuria Musculoskeletal: Denies: Joint Pain, Joint Tenderness Skin: Denies: Rash, Wounds Neurological: Denies: Numbness, Tingling, Focal weakness Psychiatric: Denies: Anxiety, Depression, Homicidal Ideations, Suicidal Ideations Hematologic/ Lymphatic: Denies: Easy Bruising, Easy Bleeding VTE Information - Inpt Only VTE Present on Admission: No VTE Mechan Device Prophylaxis: SCD's Patient Problems: Active and Suspected Problems Acute kidney injury (Acute) - Physical Exam Vitals/I&O's: Vital Signs Temp Pulse Resp BP Pulse Ox 98.4 F 65 20 H 123/70 H 98 12/04/19 10:07 12/04/19 12:30 12/04/19 12:30 12/04/19 10:07 12/04/19 12:30 Oxygen Flow Rate (L/min) 5 Oxygen Delivery Method Nasal Cannula Weight: 203 lb 11.314 oz Body Mass Index (BMI) 33.9 General: Alert, Oriented x3, Cooperative, No apparent distress HEENT: Atraumatic, PERRLA, EOMI, Normocephalic Oral: Dry Mucosa Neck: Supple, No JVD, Negative Carotid Bruits Lungs: Clear to auscultation, Normal air movement, No rhonchi, No wheeze, No rales, - - on 5L of oxygen by nasal canula Cardiovascular: Regular rate, Regular Rhythm, Normal S1, Normal S2, No murmurs Abdomen: Bowel Sounds Present, Soft, Non Tender, Non-Distended, No Hepato- splenomegaly Extremities: No clubbing, No cyanosis, No edema, Capillary Refill Less than 3 Seconds Skin: No rashes, No breakdown Musculoskeletal: No Tenderness to Palpation of Joints or Extremities Lymphatic: No Cervical, Supraclavicular, or Inguinal Adenopathy Neurological: Cranial nerves II-XII grossly intact, Neuro grossly intact, Motor Exam 5/5 strength throughout Psych/Mental Status: Normal Affect, Appropriate, Alert and oriented to time, place, person, mood and affect Laboratory Results 12/04/19 11:20: WBC 7.6, RBC 3.10 L, Hgb 9.1 L, Hct 29.0 L, MCV 93.5, MCH 29.4, MCHC 31.4 L, RDW Std Deviation 58.6 H, RDW Coeff of Ganesh 17.1 H, Plt Count 191, MPV 10.3, Immature Gran % (Auto) 1.200 H, Neut % (Auto) 78.7 H, Lymph % (Auto) 9.3 L, [place] % (Auto) 6.6, Eos % (Auto) 3.5, Baso % (Auto) 0.7, Absolute Neuts (auto) 6.0, Absolute Lymphs (auto) 0.71 L, Nucleated RBC % 0 12/04/19 11:20: Sodium 139, Potassium 5.1, Chloride 106, Carbon Dioxide 26.0, Anion Gap 7, BUN 81 H, Creatinine 2.98 H, Estim Creat Clear Calc 15.36, Est GFR (MDRD) Af Amer 20 L, Est GFR (MDRD) Non-Af 16 L, BUN/Creatinine Ratio 27.2 H, Glucose 91, Calcium 8.7, Total Bilirubin 0.50, AST 11 L, ALT 14, Alkaline Phosphatase 96, Troponin I < 0.015, Total Protein 6.2 L, Albumin 3.3, Globulin 2.9, Albumin/Globulin Ratio 1.1 12/04/19 12:15: Urine Color Yellow, Urine Clarity Sl. Cloudy, Urine pH 5.0, Ur Specific [place] 1.015, Urine Protein Negative, Urine Glucose (UA) Normal, Urine Ketones Negative, Urine Occult Blood Negative, Urine Nitrite Negative, Urine Bilirubin Negative, Urine Urobilinogen Normal, Ur Leukocyte Esterase Negative, Urine RBC 0 SEEN, Urine WBC 0 SEEN, Ur Squamous Epith Cells 0 SEEN, Amorphous Sediment 2+, Urine Bacteria 0 SEEN, Urine Mucus 0 SEEN Assessment/Plan All Active Problems Bilateral pleural effusion (Acute) Pericardial effusion (Acute) Former tobacco use (Acute) CHF exacerbation (Acute) Acute kidney injury (Acute) 74 y/o admitted with a complaint of rectal bleeding and also o/a of abnormal labs 1. INDIA * Likely due to diarrhea lower GI bleed. * Creatinine is 2.98 with a baseline of around 1. * Check Essence and check renal ultrasound. Also check urine electrolytes. * Hydrate with IV fluids normal saline at 150 cc/h * trend Cr * 2. Lower GI bleed * Patient states she has been having bloody diarrhea for the past few days. She has not had any history of such in the past. * Had a colonoscopy about 5 years ago and states it was normal. * Hemoglobin is 9.1 which is around her baseline. Will continue monitoring and consider general surgery consult. * 3. Hypertension: Controlled. On lisinopril. Will hold on account of INDIA. Also hold Lasix on account of INDIA. 4. Hyperlipidemia: On statin. 5. Pulmonary hypertension with chronic respiratory failure * On baseline 5 L of oxygen. On Combivent inhaler and Symbicort. Also chronic prednisone supplementation. * X. History of CAD: On Plavix and atorvastatin. DVT prophylaxis: SCDs CODE STATUS: DNRCCA * Patient counseled extensively about different types of CODE STATUS including full code, DNR CCA and DNR CCA. Patient elects to be DNRCCA. Total [id number] time 17 minutes. Inpatient E&M: 68485 Init Hosp L3 Procedures: 23714 Advncd Care Plan 30 Min
--- NOTE | 2019-12-04 13:38 | NURSING ---
[address] INDIA, HYPERKALEMIA
--- NOTE | 2019-12-04 14:45 | US_ITS ---
STUDY: RENAL ULTRASOUND - COMPLETE REASON FOR EXAM: Female, 74 years old. INDIA TECHNIQUE: Ultrasound evaluation of the kidneys was performed with real-time and static thompson-scale imaging. COMPARISON: None. FINDINGS: RIGHT KIDNEY: Normal location of the right kidney, which is normal in size. The right kidney measures 9.5 cm. There is focal scarring of the renal cortex. The renal cortex measures 1.2 cm. There is no right renal mass or cyst. There are no right renal calculi. There is no right hydronephrosis. DISTAL RIGHT URETER: There is non-visualization of the distal right ureter. There is no demonstrated right ureterovesical junction calculus. There is no demonstrated right ureteral jet. LEFT KIDNEY: Normal location of the left kidney, which is normal in size. The left kidney measures 9.9 cm. There is focal scarring of the renal cortex. The renal cortex measures 1.2 cm. There is no left renal mass or cyst. There are no left renal calculi. There is no left hydronephrosis. DISTAL LEFT URETER: There is non-visualization of the distal left ureter. There is no demonstrated left ureterovesical junction calculus. There is no demonstrated left ureteral jet. BLADDER: The distended urinary bladder has a volume of 236 ml. There is a normal wall thickness of the distended urinary bladder. There is no demonstrated mass within the urinary bladder. There are no demonstrated bladder calculi. US/Kidney and Bladder IMPRESSION: There is scarring of the kidneys. There is no hydronephrosis. Electronically Signed: Barry Zhang MD at 17:33 EDT , Service support ,
[2019-12-04] MEDS: 0.9% Normal Saline 1,000 ML 150 ML IV ×2 (15:02→22:48)
[2019-12-04] MEDS: Ipratropium/Albuterol Sulfate 3 ML AMPUL.NEB INHALATION (15:15)
[2019-12-04] MEDS: predniSONE 20 MG Tablet PO (16:44)
[2019-12-04] MEDS: Electrolyte Solution/Peg's 4000 ML PO (19:38)
[2019-12-04] MEDS: Morphine 2 MG/ML Syringe IV (20:22)
[2019-12-04] MEDS: DiphenhydrAMINE 25 MG Capsule 50 MG PO (22:44)
[2019-12-04] MEDS: Atorvastatin Calcium 40 MG Tablet PO (22:46)
[2019-12-04] MEDS: Acetaminophen 500 MG Tablet 1000 MG PO (22:46)
[2019-12-04] MEDS: Topiramate 50 MG Tablet PO (22:47)
[2019-12-05] VITALS (19 sets, daily range): BP systolic 118–159; BP diastolic 45–95; PULSE 72–87; RESP 16–18; TEMP 36.5–37.2; O2SAT 93–100; BMI 34.7
[2019-12-05] MEDS: 0.9% Normal Saline 1,000 ML 150 ML IV (05:59)
[2019-12-05 06:06] LABS: Absolute Lymphocyte Count 0.39 X10^3/uL (0.83-4.51); Absolute Neutrophil Count 6.3 X10^3/uL (2.0-7.7); Basophil# 0.02 X10^3/uL; Basophil% 0.3 % (0-1); Eosinophil# 0.01 X10^3/uL; Eosinophils% 0.1 % (0-5); Hematocrit 26.8 % (37-47); Hemoglobin 8.4 g/dL (12.0-15.0); Lymphocyte # 0.39 X10^3/ul (4.0); Lymphocyte % 5.6 % (19-41); Mean Corp Hgb Conc 31.3 g/dL (32-36); Mean Corpuscular Hgb 29.4 pg (27.0-32.0); Mean Corpuscular Volume 93.7 fL (81-99); Monocyte# 0.17 X10^3/uL; Monocyte% 2.5 % (0-10); NRBC Flagged by Analyzer 0 % (0-5); Neutrophil # 6.26 X10^3/uL (2.7-7.7); Neutrophil % 90.6 % (47-70); POSITIVE DIFFERENTIAL YES; Platelet Count 198 K/mm3 (150-450); RBC Distribution Width CV 16.8 % (11.6-14.6); RBC Distribution Width SD 57.5 fl (35.1-43.9); Red Blood Count 2.86 M/mm3 (4.2-5.4); White Blood Count 6.9 K/mm3 (4.4-11.0)
[2019-12-05 06:26] LABS: Anion Gap 8 (5-15); BUN 51 mg/dL (7-18); BUN/Creat Ratio 31.7 RATIO (10-20); Calcium,Total 8.1 mg/dL (8.5-10.1); Chloride 114 mmol/L (98-107); Creatinine, Serum 1.61 mg/dL (0.55-1.02); EST Glomerular Filtration Rate 33 mL/min (>60); Est Glom Filt Rate - Afr Amer 40 mL/min (>60); Estimated Creatinine Clearance 28.42 ml/min; Glucose 124 mg/dL (74-106); Potassium 4.7 mmol/L (3.5-5.1); Sodium Level 145 mmol/L (136-145)
--- NOTE | 2019-12-05 06:51 | CON.PCM_ITS ---
Reason for Consult Date of Consultation: 12/05/19 History of Present Illness: The patient is a 74 year old F admitted from the ER due to acute kidney injury/hyperkalemia. Patient also states she has been having bloody bowel movements for about the last 2 weeks she states she has a but almost every stool is bright red blood denies any black stool. Patient states she has abdominal pain but only occasionally maybe once a week or every 2 weeks. Patient occasionally has some nausea denies any recent vomiting. Patient has 13 people in her family and she is not close with her family is unsure of family history. Patient states her last colonoscopy was maybe 3 to 5 years ago in [place] negative per patient. Patient is on Plavix due to CAD. Past Medical History Past Medical History (Chronic Problems): Chronic Problems Dyspnea (Chronic) COPD (chronic obstructive pulmonary disease) (Chronic) Chronic respiratory failure with hypoxia (Chronic) HTN (hypertension) (Chronic) HLD (hyperlipidemia) (Chronic) CAD (coronary artery disease) (Chronic) OLEG (obstructive sleep apnea) (Chronic) Anxiety and depression (Chronic) Allergies No Known Allergies Allergy (Verified 12/04/19 10:14) Home Medications: Ambulatory Orders Medication Instructions Recorded Budesonide/Formoterol 160/4.5 2 puff INHALATION BID 09/10/19 [Symbicort 160/4.5 Mcg Inhaler (SP)] Clopidogrel Bisulfate [Plavix] 75 mg PO DAILY 09/10/19 Ipratropium/Albuterol Respimat 1 puff INHALATION 4X/DAY 09/10/19 [Combivent Respimat Inhal [place]] Atorvastatin Calcium [Lipitor] 40 mg PO QHS 11/13/19 Diclofenac [Voltaren] 75 mg PO BID 11/13/19 Doxycycline 100 mg PO BID #14 cap 11/13/19 Doxycycline Hyclate 100 mg PO BID 11/13/19 Famotidine 40 mg PO BID 11/13/19 Furosemide [Lasix] 40 mg PO BID 11/13/19 Lisinopril [Prinivil] 10 mg PO DAILY 11/13/19 Paroxetine HCl [Paxil] 30 mg PO DAILY 11/13/19 Potassium Chloride [K-Dur] 20 meq PO BIDCM 11/13/19 Prednisone 20 mg PO BID 11/13/19 Prednisone [Deltasone] 40 mg PO DAILY #10 tab 11/13/19 Topiramate 50 mg PO QHS 11/13/19 Tylenol Pm Ex-Strength Caplet 3 tab PO QHS 12/04/19 Surgical History: - - PCI x2 most recently 10/2017, tonsillectomy, appendectomy, cholecystectomy, hysterectomy. 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 Paternal History Items: - - Patient notes a paternal family history of heart disease as well as cancer, specifically stomach cancer. Review of Systems Constitutional: Denies: Anorexia, Fever Eyes: Denies: Redness HEENT: Denies: Ear Pain Cardiovascular: Denies: Chest Pain Respiratory: Denies: Shortness of Breath Gastrointestinal: Reports: Abdominal Pain, Hematochezia, Nausea. Denies: Vomiting Genitourinary: Denies: Dysuria Skin: Denies: Rash Psychiatric: Denies: Depression Hematologic/ Lymphatic: Denies: Anemia Patient Problems: Active and Suspected Problems Acute kidney injury (Acute) - Physical Exam Vitals/I&O's: Vital Signs Temp Pulse Resp BP Pulse Ox 98.1 F 77 18 159/64 H 93 12/05/19 01:45 12/05/19 05:55 12/05/19 01:45 12/05/19 01:45 12/05/19 01:45 Oxygen Flow Rate (L/min) 5 Oxygen Delivery Method Nasal Cannula Weight: 208 lb 8.917 oz Body Mass Index (BMI) 34.7 Intake and Output for Last 24 Hours 12/03/19 12/04/19 12/05/19 23:59 23:59 23:59 Intake Total 2000 / 3000 3500 / 3500 Balance 2000 / 3000 3500 / 3500 General: Alert, Oriented x3, Cooperative, No apparent distress HEENT: Atraumatic Lungs: Normal air movement Cardiovascular: Regular rate Abdomen: Soft, Non Tender, Non-Distended Extremities: No clubbing, No cyanosis, No edema Neurological: Cranial nerves II-XII grossly intact Psych/Mental Status: Normal Affect Microbiology Past 72 Hours 12/04/19 19:10 Mucosa - Nasopharyngeal Coronavirus COVID-19 PCR - Preliminary Laboratory Results 12/04/19 11:20: WBC 7.6, RBC 3.10 L, Hgb 9.1 L, Hct 29.0 L, MCV 93.5, MCH 29.4, MCHC 31.4 L, RDW Std Deviation 58.6 H, RDW Coeff of Ganesh 17.1 H, Plt Count 191, MPV 10.3, Immature Gran % (Auto) 1.200 H, Neut % (Auto) 78.7 H, Lymph % (Auto) 9.3 L, [place] % (Auto) 6.6, Eos % (Auto) 3.5, Baso % (Auto) 0.7, Absolute Neuts (auto) 6.0, Absolute Lymphs (auto) 0.71 L, Nucleated RBC % 0 12/04/19 11:20: Sodium 139, Potassium 5.1, Chloride 106, Carbon Dioxide 26.0, Anion Gap 7, BUN 81 H, Creatinine 2.98 H, Estim Creat Clear Calc 15.36, Est GFR (MDRD) Af Amer 20 L, Est GFR (MDRD) Non-Af 16 L, BUN/Creatinine Ratio 27.2 H, Glucose 91, Calcium 8.7, Total Bilirubin 0.50, AST 11 L, ALT 14, Alkaline Phosphatase 96, Troponin I < 0.015, Total Protein 6.2 L, Albumin 3.3, Globulin 2.9, Albumin/Globulin Ratio 1.1 12/04/19 12:15: Urine Color Yellow, Urine Clarity Sl. Cloudy, Urine pH 5.0, Ur Specific [place] 1.015, Urine Protein Negative, Urine Glucose (UA) Normal, Urine Ketones Negative, Urine Occult Blood Negative, Urine Nitrite Negative, Urine Bilirubin Negative, Urine Urobilinogen Normal, Ur Leukocyte Esterase Negative, Urine RBC 0 SEEN, Urine WBC 0 SEEN, Ur Squamous Epith Cells 0 SEEN, Amorphous Sediment 2+, Urine Bacteria 0 SEEN, Urine Mucus 0 SEEN 12/04/19 19:10: COVID-19 (MANJINDER) Cancelled 12/05/19 05:12: WBC Pending, RBC Pending, Hgb Pending, Hct Pending, MCV Pending, MCH Pending, MCHC Pending, RDW Std Deviation Pending, RDW Coeff of Ganesh Pending, Plt Count Pending, Neut % (Auto) Pending, Absolute Neuts (auto) Pending 12/05/19 05:12: Sodium 145, Potassium 4.7, Chloride 114 H, Carbon Dioxide 23.0, Anion Gap 8, BUN 51 H, Creatinine 1.61 H, Estim Creat Clear Calc 28.42, Est GFR (MDRD) Af Amer 40 L, Est GFR (MDRD) Non-Af 33 L, BUN/Creatinine Ratio 31.7 H, Glucose 124 H, Calcium 8.1 L Current Medications Acetaminophen (Tylenol) 1,000 mg PO QHS [facility] Last Admin: 12/04/19 22:46 Dose: 1,000 mg Documented by: Albuterol/Ipratropium (Duoneb) 3 ml INHALATION [id number] [facility] Last Admin: 12/04/19 21:24 Dose: Not Given Documented by: Atorvastatin Calcium (Lipitor) 40 mg PO QHS [facility] Last Admin: 12/04/19 22:46 Dose: 40 mg Documented by: Dextrose (D50w Syringe) 0 gm IV X1 PRN; Protocol PRN Reason: Hypoglycemia Diphenhydramine HCl (Benadryl) 50 mg PO QHS [facility] Last Admin: 12/04/19 22:44 Dose: 50 mg Documented by: Glucagon () 1 mg IM .X1 PRN PRN Reason: Hypoglycemia Sodium Chloride () 1,000 mls @ 150 mls/hr IV .[id number] [facility] Stop: 12/05/19 10:05 Last Admin: 12/05/19 05:59 Dose: 150 mls/hr Documented by: Sodium Chloride () 250 mls @ 15 mls/hr IV .[id number] PRN PRN Reason: Saline Flush Ondansetron HCl (Zofran) 4 mg IV Q8H PRN PRN PRN Reason: NAUSEA/VOMITING Paroxetine HCl (Paxil) 30 mg PO DAILY [facility] Prednisone () 20 mg PO BIDCM [facility] Last Admin: 12/04/19 16:44 Dose: 20 mg Documented by: Sodium Chloride () 10 - 40 ml IV UD PRN PRN Reason: SALINE FLUSH Topiramate (Topamax) 50 mg PO QHS [facility] Last Admin: 12/04/19 22:47 Dose: 50 mg Documented by: Assessment/Plan All Active Problems Bilateral pleural effusion (Acute) Pericardial effusion (Acute) Former tobacco use (Acute) CHF exacerbation (Acute) Acute kidney injury (Acute) 74-year-old female with bright red blood per rectum I have discussed the above with the patient. Did also discuss CODE STATUS with patient she understands she needs to be a full code during the procedure and was agreeable. I have offered the patient colonoscopy for evaluation. I have explained the risks/benefits of the procedure and described the procedure. I have discussed the risks with the patient, including but not limited to: infection, bleeding, perforation of the GI tract requiring emergency surgery, inability to complete the procedure, injury to any internal organs, complications of anesthesia, etc. - the patient understands and agrees to proceed. I have answered all the patient's questions to the patient's satisfaction and the patient has no further questions. We discussed the current risks associated with COVID-19. While it is understood that there is a community spread of COVID-19, the risk of heather COVID-19 while at [facility] ([facility]) is very low; however, the risk cannot be completely mitigated because of the community spread of the disease. We discussed in detail the risk of exposure to and/or potential harm posed by the COVID-19 virus with having a surgery/procedure at this time versus the risk of delaying the surgery/procedure. It is not possible to know either the risk of delaying the surgery or procedure or chance of getting an infection with perfect accuracy, but a joint decision was made to proceed at this time with the scheduled surgery/procedure as indicated on the consent form. Patient was notified that we will need to comply with any screening or testing [facility] wishes to perform or that surgery may be delayed for any positive results. Sindy Poole M.D. Pager: [phone] [facility] [address] [place] [address], [facility], [address] [place] [address] Office: [phone] Inpatient E&M: 41607 Init Hosp L2
[2019-12-05 07:01] LABS: Differential Indicated SCAN CRITERIA MET
[2019-12-05 07:13] LABS: Differential Comment SCANNED; Ovalocyte RARE
[2019-12-05 07:14] LABS: Anisocytosis 1+
[2019-12-05] MEDS: Ipratropium/Albuterol Sulfate 3 ML AMPUL.NEB INHALATION ×2 (07:43→12:30)
--- NOTE | 2019-12-05 09:08 | PCA ---
pt off floor
--- NOTE | 2019-12-05 11:06 | NURSING ---
pt has been talking to her daughter after surgery on the phone
[2019-12-05] MEDS: PARoxetine 10 MG Tablet 30 MG PO (11:18)
[2019-12-05] MEDS: predniSONE 20 MG Tablet PO ×2 (11:19→17:35)
--- NOTE | 2019-12-05 12:47 | PN_ITS ---
Patient Problems: Active and Suspected Problems Acute kidney injury (Acute) Subjective: Patient seen and examined. She has no complaints. She feels much better. Review of symptoms otherwise negative. She had colonoscopy this morning which was negative and only showed some hemorrhoids. Creatinine is trended up from 2.98-1.61. She is on a baseline of 5 L of oxygen. Hemoglobin today is 8.4. Vitals/I&O's: Vital Signs Temp Pulse Resp BP Pulse Ox 99.0 F 82 18 124/87 H 100 12/05/19 11:02 12/05/19 11:26 12/05/19 11:02 12/05/19 11:02 12/05/19 11:02 Oxygen Flow Rate (L/min) 5 Oxygen Delivery Method Nasal Cannula Weight: 208 lb 8.917 oz Body Mass Index (BMI) 34.7 Intake and Output for Last 24 Hours 12/03/19 12/04/19 12/05/19 23:59 23:59 23:59 Intake Total 1999 / 3000 3500 / 3500 Balance 2000 / 3000 3500 / 3500 General: Alert, Oriented x3, Cooperative, No apparent distress HEENT: Atraumatic, PERRLA, EOMI, Normocephalic Oral: Dry Mucosa Neck: Supple, No JVD, Negative Carotid Bruits Lungs: Clear to auscultation, Normal air movement, No rhonchi, No wheeze, No rales, - - on 5L of oxygen by nasal canula Cardiovascular: Regular rate, Regular Rhythm, Normal S1, Normal S2, No murmurs Abdomen: Bowel Sounds Present, Soft, Non Tender, Non-Distended, No Hepato- splenomegaly Extremities: No clubbing, No cyanosis, No edema, Capillary Refill Less than 3 Seconds Skin: No rashes, No breakdown Musculoskeletal: No Tenderness to Palpation of Joints or Extremities Lymphatic: No Cervical, Supraclavicular, or Inguinal Adenopathy Neurological: Cranial nerves II-XII grossly intact, Neuro grossly intact, Motor Exam 5/5 strength throughout Psych/Mental Status: Normal Affect, Appropriate, Alert and oriented to time, place, person, mood and affect Microbiology Past 72 Hours 12/04/19 19:10 Mucosa - Nasopharyngeal Coronavirus COVID-19 PCR - Final Laboratory Results 12/04/19 19:10: COVID-19 (MANJINDER) Cancelled 12/05/19 05:12: WBC 6.9, RBC 2.86 L, Hgb 8.4 L, Hct 26.8 L, MCV 93.7, MCH 29.4, MCHC 31.3 L, RDW Std Deviation 57.5 H, RDW Coeff of Ganesh 16.8 H, Plt Count 198, MPV 11.0, Immature Gran % (Auto) 0.900, Neut % (Auto) 90.6 H, Lymph % (Auto) 5.6 L, [place]son % (Auto) 2.5, Eos % (Auto) 0.1, Baso % (Auto) 0.3, Absolute Neuts (auto) 6.3, Absolute Lymphs (auto) 0.39 L, Nucleated RBC % 0, Differential Comment SCANNED, Anisocytosis 1+, Ovalocytes RARE 12/05/19 05:12: Sodium 145, Potassium 4.7, Chloride 114 H, Carbon Dioxide 23.0, Anion Gap 8, BUN 51 H, Creatinine 1.61 H, Estim Creat Clear Calc 28.42, Est GFR (MDRD) Af Amer 40 L, Est GFR (MDRD) Non-Af 33 L, BUN/Creatinine Ratio 31.7 H, Glucose 124 H, Calcium 8.1 L Diagnostic Data Renal Ultrasound 12/04/19 14:45 IMPRESSION: There is scarring of the kidneys. There is no hydronephrosis. Electronically Signed: Barry Zhang MD at 17:33 EDT , Service support , Current Medications Acetaminophen (Tylenol) 1,000 mg PO QHS [facility] Last Admin: 12/04/19 22:46 Dose: 1,000 mg Documented by: Albuterol/Ipratropium (Duoneb) 3 ml INHALATION Q6HWA.RT ADÁN Last Admin: 12/05/19 07:43 Dose: 3 ml Documented by: Atorvastatin Calcium (Lipitor) 40 mg PO QHS [facility] Last Admin: 12/04/19 22:46 Dose: 40 mg Documented by: Dextrose (D50w Syringe) 0 gm IV X1 PRN; Protocol PRN Reason: Hypoglycemia Diphenhydramine HCl (Benadryl) 50 mg PO QHS [facility] Last Admin: 12/04/19 22:44 Dose: 50 mg Documented by: Glucagon () 1 mg IM .X1 PRN PRN Reason: Hypoglycemia Sodium Chloride () 250 mls @ 15 mls/hr IV .[id number] PRN PRN Reason: Saline Flush Ondansetron HCl (Zofran) 4 mg IV Q8H PRN PRN PRN Reason: NAUSEA/VOMITING Paroxetine HCl (Paxil) 30 mg PO DAILY [facility] Last Admin: 12/05/19 11:18 Dose: 30 mg Documented by: Prednisone () 20 mg PO BIDCM [facility] Last Admin: 12/05/19 11:19 Dose: 20 mg Documented by: Sodium Chloride () 10 - 40 ml IV UD PRN PRN Reason: SALINE FLUSH Topiramate (Topamax) 50 mg PO QHS [facility] Last Admin: 12/04/19 22:47 Dose: 50 mg Documented by: STROKE Vital Signs/Narrative: Vital Signs Temp Pulse Resp BP Pulse Ox 12/05/19 11:26 82 12/05/19 11:02 99.0 F 76 18 124/87 H 100 12/05/19 10:35 97.7 F L 77 16 118/95 H 100 12/05/19 10:30 78 16 133/54 H 99 12/05/19 10:25 78 16 124/54 H 100 12/05/19 10:20 97.7 F L 79 16 134/52 H 100 Medical Necessity - Tobacco Use Smoking Status: Former smoker Assessment/Plan All Active Problems Bilateral pleural effusion (Acute) Pericardial effusion (Acute) Former tobacco use (Acute) CHF exacerbation (Acute) Acute kidney injury (Acute) 1. INDIA * Likely due to diarrhea and lower GI bleed. * CR is down to 1.61. baseline is ~1. * renal USG showed scarring of kidneys, but ws otherwise normal. * continue gentle hdyration with IVF * * 2. Lower GI bleed * hemoglobin is down to 8.4 today. She had a colonoscopy today which showed a few nonbleeding hemorrhoids. * General surgery on board. * Will continue to monitor. * 3. Hypertension: Controlled. Lisinopril and furosemide on hold on account of INDIA 4. Hyperlipidemia: On statin. 5. Pulmonary hypertension with chronic respiratory failure * On baseline 5 L of oxygen. On Combivent inhaler and Symbicort. Also chronic prednisone supplementation. * X. History of CAD: On Plavix and atorvastatin. DVT prophylaxis: SCDs CODE STATUS: DNRCCA- no intubation * Inpatient E&M: 09691 Subs Hosp L2
--- NOTE | 2019-12-05 13:20 | CASEMGMT ---
NADER KENNEDY Face to Face with patient for initial transition planning/care coordination assessment. RN CM introduced self and role at [facility]. Patient lying in bed, alert and oriented. Patient willing to participate in assessment and is able to answer all questions appropriately. Care providers, pharmacy, and demographics verified. Patient wishes to discharge home, denies need for home health at this time. Patient states she has no further needs or concerns at this time. CM to follow for discharge planning needs that may arise. PCP: [facility] Specialists: None Preferred Pharmacy: [facility] Insurance: [employer] [facility] Prescription Benefit:yes Living Will/HPOA: yes, friend Melia Dudley LNOK: friend Living Arrangements: Patient lives alone in an apartment with one step to enter the home. Patient states she is independent Transportation: [employer] DME/HHC: Patient states she has oxygen at 5 lpm with [employer], no portable tanks. Patient had [employer] pick them up because she doesn't go anywhere and did not want to pay for tanks. Patient also has nebulizer. Denies previous HHC. Disposition Plan: Patient to discharge home with support from and follow-up plans in place. Elissa GUPTA, RN, CM
[2019-12-05] MEDS: 0.9% Normal Saline 1,000 ML 100 ML IV (14:25)
[2019-12-05] MEDS: 0.9% Saline Lock 10 ML Syringe IV (14:26)
[2019-12-05] MEDS: Ketorolac 15 MG/ML Vial IV (15:51)
[2019-12-05] MEDS: Morphine 2 MG/ML Syringe IV (18:02)
[2019-12-05] MEDS: Acetaminophen 500 MG Tablet 1000 MG PO (22:32)
[2019-12-05] MEDS: DiphenhydrAMINE 25 MG Capsule 50 MG PO (22:32)
[2019-12-05] MEDS: Atorvastatin Calcium 40 MG Tablet PO (22:32)
[2019-12-05] MEDS: Topiramate 50 MG Tablet PO (22:36)
[2019-12-06] VITALS (9 sets, daily range): BP systolic 140–177; BP diastolic 64–80; PULSE 72–85; RESP 18–20; TEMP 36.4–36.8; O2SAT 94–100
[2019-12-06] MEDS: 0.9% Normal Saline 1,000 ML 100 ML IV (00:10)
[2019-12-06] MEDS: hydrALAZINE 20 MG/ML Vial 5 MG IV ×2 (03:42→09:37)
[2019-12-06] MEDS: 0.9% Saline Lock 10 ML Syringe IV ×2 (03:44→09:34)
[2019-12-06 06:12] LABS: Absolute Lymphocyte Count 0.42 X10^3/uL (0.83-4.51); Absolute Neutrophil Count 6.6 X10^3/uL (2.0-7.7); Basophil# 0.01 X10^3/uL; Basophil% 0.1 % (0-1); Hematocrit 26.7 % (37-47); Hemoglobin 8.2 g/dL (12.0-15.0); Lymphocyte # 0.42 X10^3/ul (4.0); Lymphocyte % 5.7 % (19-41); Mean Corp Hgb Conc 30.7 g/dL (32-36); Mean Corpuscular Hgb 29.4 pg (27.0-32.0); Mean Corpuscular Volume 95.7 fL (81-99); Mean Platelet Vol. 10.6 fl (6.2-12.0); Monocyte# 0.26 X10^3/uL; Monocyte% 3.5 % (0-10); NRBC Flagged by Analyzer 0 % (0-5); Neutrophil # 6.59 X10^3/uL (2.7-7.7); Neutrophil % 89.2 % (47-70); POSITIVE DIFFERENTIAL YES; Platelet Count 209 K/mm3 (150-450); RBC Distribution Width CV 16.8 % (11.6-14.6); RBC Distribution Width SD 59.4 fl (35.1-43.9); Red Blood Count 2.79 M/mm3 (4.2-5.4); White Blood Count 7.4 K/mm3 (4.4-11.0)
[2019-12-06 06:15] LABS: Differential Indicated SCAN CRITERIA MET
[2019-12-06 06:37] LABS: Anion Gap 4 (5-15); BUN 29 mg/dL (7-18); BUN/Creat Ratio 24.6 RATIO (10-20); Calcium,Total 8.5 mg/dL (8.5-10.1); Chloride 117 mmol/L (98-107); Creatinine, Serum 1.18 mg/dL (0.55-1.02); EST Glomerular Filtration Rate 48 mL/min (>60); Est Glom Filt Rate - Afr Amer 58 mL/min (>60); Estimated Creatinine Clearance 38.78 ml/min; Glucose 134 mg/dL (74-106); Potassium 4.8 mmol/L (3.5-5.1); Sodium Level 144 mmol/L (136-145)
[2019-12-06 06:38] LABS: Differential Comment SCANNED; Reactive Lymphocyte RARE
[2019-12-06] MEDS: Ipratropium/Albuterol Sulfate 3 ML AMPUL.NEB INHALATION (07:56)
--- NOTE | 2019-12-06 08:54 | PCM.DC ---
- Discharge Diagnoses Current Active Problems: Current Active and Chronic Problems Acute kidney injury (Acute) You will use the following diet at home:: Cardiac Your food should be the consistency of: Regular Your liquids should be the consistency of: Regular/Thin Discharge Activity: Return to Normal Activity Weight Bearing Status: Weight bearing as tolerated Call your doctor if you observe: Fever of 101 or Higher, Inability to urinate, Shortness of breath, Dizziness, Swelling in the ankles Instructions: ED Insufficiency Renal Additional Instructions: diclofenac stopped o/a of INDIA; lisinopril stopped o/a of INDIA also. Started on PO amlodipine 10mg daily. To follow up with PCP within one week for repeat BMP to assess kidney function. Counselled to keep well hydrated by drinking liberal oral fluids Allergies/Adverse Reactions: Allergies No Known Allergies Allergy (Verified 12/04/19 10:14) Medications to take at Discharge Budesonide/Formoterol 160/4.5 [Symbicort 160/4.5 Mcg Inhaler (SP)] 2 puff INHALATION BID 09/10/19 Clopidogrel Bisulfate [Plavix] 75 mg PO DAILY 09/10/19 Ipratropium/Albuterol Respimat [Combivent Respimat Inhal [place]] 1 puff INHALATION 4X/DAY 09/10/19 Atorvastatin Calcium [Lipitor] 40 mg PO QHS 11/13/19 Famotidine 40 mg PO BID 11/13/19 Furosemide [Lasix] 40 mg PO BID 11/13/19 Paroxetine HCl [Paxil] 30 mg PO DAILY 11/13/19 Potassium Chloride [K-Dur] 20 meq PO BIDCM 11/13/19 Prednisone 20 mg PO BID 11/13/19 Prednisone [Deltasone] 40 mg PO DAILY #10 tab 11/13/19 Topiramate 50 mg PO QHS 11/13/19 Tylenol Pm Ex-Strength Caplet 3 tab PO QHS 12/04/19 Amlodipine [Norvasc] 10 mg PO DAILY #30 tab 12/06/19 The following prescriptions were given: Amlodipine [Norvasc] 10 mg PO DAILY #30 tab Transmission Status: Pending to [facility]/pharmacy #[id number] Primary Care Physician: Deon Alberts MD [Primary Care Provider] - Please follow up with your Primary Care Physician in: 1 week Test Results: Test results from this visit will be discussed in further detail at your follow-up appointment, if applicable. Proposed Discharge Date: 12/06/19
--- NOTE | 2019-12-06 08:58 | PCM.DC.SUM ---
Discharge Date and Diagnosis - Problem List Patient Problems: Active and Suspected Problems Acute kidney injury (Acute) Date of Admission: 12/04/19 Date of Discharge: 12/06/19 - Primary Discharge Diagnosis Acute Problems: Active Problems Acute kidney injury (Acute) rectal bleeding - Secondary Discharge Diagnosis Chronic Problems: Chronic Problems Dyspnea (Chronic) COPD (chronic obstructive pulmonary disease) (Chronic) Chronic respiratory failure with hypoxia (Chronic) HTN (hypertension) (Chronic) HLD (hyperlipidemia) (Chronic) CAD (coronary artery disease) (Chronic) OLEG (obstructive sleep apnea) (Chronic) Anxiety and depression (Chronic) Hospital Course and Treatment Imaging Results: Diagnostic Data Renal Ultrasound 12/04/19 14:45 IMPRESSION: There is scarring of the kidneys. There is no hydronephrosis. Electronically Signed: Barry Zhang MD at 17:33 EDT , Service support , general surgery- Dr Poole Operations: None Procedures: Colonoscopy Summary of Care Provided: The patient is a 74 year old F with a PMH as outlined who was admitted via the ED on 12/04/2019 o/a of abnormal labs. Patient went to see her PCP yesterday and labs were done which showed INDIA with hyperkalemia. She was therefore asked to come to the ED today. On admission in the ED, labs done showed creatinine of 2.98 with potassium of 5.1. Of note, patient denied any palpitations or dizziness and denied any fever or chills. She however admitted to not having a good appetite over the past week as well as having bloody diarrhea over the past week. She says diarrhea is royal blood. She has not had such bleeding in the past and is wondering whether she might have hemorrhoids. She denied any nausea or vomiting and review of systems was otherwise negative. She is not on any blood thinners and wears 6 L of oxygen for pulmonary hypertension. Vitals were significant for tachypnea on admission with respiratory of 28 but was down to 20 at time of review. She was on 5 L of oxygen which is her baseline. Hemoglobin was 9.1 with white cell count of 7.6 platelets of 191. She was admitted to be managed for INDIA and rectal bleeding. She was hydrated with IV fluids and general surgery was consulted. Creatinine trended down with IV fluid administration to 1.6 and eventually to 1.18 at time of discharge. General surgery was consulted. She had a colonoscopy on 12/05/2019 which showed no evidence of bleeding and only showed few nonbleeding hemorrhoids. Patient's hemoglobin remained stable was 8.2 at time of discharge.She was discharged home on 12/06/2019. Hair lisinopril was stopped on account of the INDIA and hyperkalemia. However the Lasix that she takes was continued along with the potassium supplementation due to risk of hypokalemia with Lasix. She is to follow-up with her primary care doctor within 1 week for repeat BMP to follow-up on kidney function and potassium level. She is also to keep a blood pressure log with morning and evening checks of her blood pressure and presented to her PCP at next visit for BP meds to be adjusted as needed. Patient seen and examined prior to discharge. She has no complaints and feels well. Review of systems is otherwise negative. Labs and vitals reveiwed. Home meds reviewed and reconciled. O/E: Vital Signs Temp Pulse Resp BP Pulse Ox 98.3 F 85 18 177/68 H 96 12/06/19 09:22 12/06/19 09:37 12/06/19 09:32 12/06/19 09:37 12/06/19 09:32 General: Alert, Oriented x3, Cooperative, No apparent distress HEENT: Atraumatic, PERRLA, EOMI, Normocephalic Oral: Dry Mucosa Neck: Supple, No JVD, Negative Carotid Bruits Lungs: Clear to auscultation, Normal air movement, No rhonchi, No wheeze, No rales, - - on 5L of oxygen by nasal canula Cardiovascular: Regular rate, Regular Rhythm, Normal S1, Normal S2, No murmurs Abdomen: Bowel Sounds Present, Soft, Non Tender, Non-Distended, No Hepato-splenomegaly Extremities: No clubbing, No cyanosis, No edema, Capillary Refill Less than 3 Seconds Skin: No rashes, No breakdown Musculoskeletal: No Tenderness to Palpation of Joints or Extremities Lymphatic: No Cervical, Supraclavicular, or Inguinal Adenopathy Neurological: Cranial nerves II-XII grossly intact, Neuro grossly intact, Motor Exam 5/5 strength throughout Psych/Mental Status: Normal Affect, Appropriate, Alert and oriented to time, place, person, mood and affect Patient was also counseled to keep well hydrated to avert INDIA. Plan is for discharge home today. Patient Problems: Active and Suspected Problems Acute kidney injury (Acute) - Physical Exam Vitals/I&O's: Vital Signs Temp Pulse Resp BP Pulse Ox 97.6 F L 79 20 H 174/64 H 100 12/06/19 02:50 12/06/19 03:59 12/06/19 02:50 12/06/19 03:42 12/06/19 02:50 Oxygen Flow Rate (L/min) 5 Oxygen Delivery Method Nasal Cannula Weight: 208 lb 8.917 oz Body Mass Index (BMI) 34.7 Intake and Output for Last 24 Hours 12/04/19 12/05/19 12/06/19 23:59 23:59 23:59 Intake Total 1999 5925 / 6225 1475 / 1475 Balance 1999 5925 / 6225 1475 / 1475 Microbiology Past 72 Hours 12/04/19 19:10 Mucosa - Nasopharyngeal Coronavirus COVID-19 PCR - Final Laboratory Results 12/06/19 05:42: WBC 7.4, RBC 2.79 L, Hgb 8.2 L, Hct 26.7 L, MCV 95.7, MCH 29.4, MCHC 30.7 L, RDW Std Deviation 59.4 H, RDW Coeff of Ganesh 16.8 H, Plt Count 209, MPV 10.6, Immature Gran % (Auto) 1.500 H, Neut % (Auto) 89.2 H, Lymph % (Auto) 5.7 L, [place] % (Auto) 3.5, Eos % (Auto) 0.0, Baso % (Auto) 0.1, Absolute Neuts (auto) 6.6, Absolute Lymphs (auto) 0.42 L, Nucleated RBC % 0, Differential Comment SCANNED, Reactive Lymphocytes RARE 12/06/19 05:42: Sodium 144, Potassium 4.8, Chloride 117 H, Carbon Dioxide 23.0, Anion Gap 4 L, BUN 29 H, Creatinine 1.18 H, Estim Creat Clear Calc 38.78, Est GFR (MDRD) Af Amer 58 L, Est GFR (MDRD) Non-Af 48 L, BUN/Creatinine Ratio 24.6 H, Glucose 134 H, Calcium 8.5 Diagnostic Data Renal Ultrasound 12/04/19 14:45 IMPRESSION: There is scarring of the kidneys. There is no hydronephrosis. Electronically Signed: Barry Zhang MD at 17:33 EDT , Service support , Current Medications Acetaminophen (Tylenol) 1,000 mg PO QHS [facility] Last Admin: 12/05/19 22:32 Dose: 1,000 mg Documented by: Albuterol/Ipratropium (Duoneb) 3 ml INHALATION Q6HWA.RT [facility] Last Admin: 12/06/19 07:56 Dose: 3 ml Documented by: Atorvastatin Calcium (Lipitor) 40 mg PO QHS [facility] Last Admin: 12/05/19 22:32 Dose: 40 mg Documented by: Dextrose (D50w Syringe) 0 gm IV X1 PRN; Protocol PRN Reason: Hypoglycemia Diphenhydramine HCl (Benadryl) 50 mg PO QHS [facility] Last Admin: 12/05/19 22:32 Dose: 50 mg Documented by: Glucagon () 1 mg IM .X1 PRN PRN Reason: Hypoglycemia Hydralazine HCl (Apresoline Iv) 5 mg IV Q4H PRN PRN PRN Reason: SBP more than 160 Last Admin: 12/06/19 03:42 Dose: 5 mg Documented by: Sodium Chloride () 250 mls @ 15 mls/hr IV .[id number] PRN PRN Reason: Saline Flush Sodium Chloride () 1,000 mls @ 100 mls/hr IV .Q10H [facility] Stop: 12/06/19 09:59 Last Admin: 12/06/19 00:10 Dose: 100 mls/hr Documented by: Ondansetron HCl (Zofran) 4 mg IV Q8H PRN PRN PRN Reason: NAUSEA/VOMITING Paroxetine HCl (Paxil) 30 mg PO DAILY [facility] Last Admin: 12/05/19 11:18 Dose: 30 mg Documented by: Prednisone () 20 mg PO BIDCM [facility] Last Admin: 12/05/19 17:35 Dose: 20 mg Documented by: Sodium Chloride () 10 - 40 ml IV UD PRN PRN Reason: SALINE FLUSH Last Admin: 12/06/19 03:44 Dose: 10 ml Documented by: Topiramate (Topamax) 50 mg PO QHS [facility] Last Admin: 12/05/19 22:36 Dose: 50 mg Documented by: Discharge Diet: Low fat/ Low Cholesterol Discharge Activity: Return to Normal Activity Weight Bearing Status: Weight bearing as tolerated Call your doctor if you observe: Fever of 101 or Higher, Inability to urinate, Shortness of breath, Dizziness, Swelling in the ankles Home Medications: Medications to take at Discharge Budesonide/Formoterol 160/4.5 [Symbicort 160/4.5 Mcg Inhaler (SP)] 2 puff INHALATION BID 09/10/19 Clopidogrel Bisulfate [Plavix] 75 mg PO DAILY 09/10/19 Ipratropium/Albuterol Respimat [Combivent Respimat Inhal [place]] 1 puff INHALATION 4X/DAY 09/10/19 Atorvastatin Calcium [Lipitor] 40 mg PO QHS 11/13/19 Famotidine 40 mg PO BID 11/13/19 Furosemide [Lasix] 40 mg PO BID 11/13/19 Paroxetine HCl [Paxil] 30 mg PO DAILY 11/13/19 Potassium Chloride [K-Dur] 20 meq PO BIDCM 11/13/19 Prednisone 20 mg PO BID 11/13/19 Prednisone [Deltasone] 40 mg PO DAILY #10 tab 11/13/19 Topiramate 50 mg PO QHS 11/13/19 Tylenol Pm Ex-Strength Caplet 3 tab PO QHS 12/04/19 Amlodipine [Norvasc] 10 mg PO DAILY #30 tab 12/06/19 Following Prescrptions Were Given to Patient: Amlodipine [Norvasc] 10 mg PO DAILY #30 tab Transmission Status: Received by [facility]/pharmacy #[id number] Primary Care Physician: Deon Alberts MD [Primary Care Provider] - Please follow up with your Primary Care Physician in: 1 week Patient Instructions: ED Insufficiency Renal Disposition: Home Minutes spent on discharge:: 45 Patient Condition:: Stable Medical Necessity - Tobacco Use Smoking Status: Former smoker Meaningful Use Info Meaningful Use Diagnoses (Choose all that apply): None applicable Inpatient E&M: 37932 Disch Hosp
--- NOTE | 2019-12-06 09:30 | NURSING ---
Addendum entered by Estephanie Rivera 12/06/19 13:29: This RN took patient off of unit with a mask in place to d/c. This RN offered to sign form from [employer] stacker driver notified this RN that a signature was not needed and that she only needed patient's signature. Pt assisted into vehicle with no issues. Addendum entered by Estephanie Rivera 12/06/19 12:42: when this RN was preparing pt for d/c, this RN collected her unused meds from her drawer at bedside and pt stated, do you suppose there is any morphine in there? while laughing. Pt reports being unhappy with her current PCP because he hasn't fixed her headache and he won't given morphine pills for home. Also, she reports acid reflux despite famotidine being increased recently. She states that the doctor took away the med that was working and will not give it back. Discharge instructions reviewed- pt notified which medications she needs to take tonight. Also notified of necessity to obtain appointment with Dr. Alberts for follow up with labs for a week from today. also notified new b/p med will be sent to her home pharmacy and that she will need to get it. Notified also of medications that were stopped and educated pt as to why they were stopped. Pt verbalized understanding regarding all of the above. Pt reports that she has no pants to wear home and used hospital pants as shirt did not cover bottoms. Also, pt reports the inability to get home due to no money and no friends or relatives that live close that can help her. Asked about Melia which is contact listed. She states Melia lives in [place] and cannot transport her. This RN obtained consent from Nursing Qa Reviewer- Diane for hospital voucher. MANOLO Mathews called [employer] and notified them of hospital voucher-- transport set up for pt to return home in a few minutes. Notified that pt. must wear facemask. Original Note: This RN rounded on pt this AM-pt denied needs. Within 10 minutes pt notified another staff member that she had a severe headache and needed morphine. Dr. Aguilar notified and states no Morphine. This RN entered pt's room to assess her and was awakened and notified this RN that she needs morphine for headache. Notified pt that Dr. Aguilar was notified and states she is not ordering Morphine. Pt states, well, she's no fun. NOn verbal pain score 0/10
[2019-12-06] MEDS: PARoxetine 10 MG Tablet 30 MG PO (09:34)
[2019-12-06] MEDS: predniSONE 20 MG Tablet PO (09:34)
--- NOTE | 2019-12-07 16:51 | CASEMGMT ---
Addendum entered by Elissa Tom 12/11/19 15:29: RN CM received voice message from patient. RN CM called patient, no answer, voice message left with return contact information. Original Note: RN CM Discharge Follow-up Phone Call: CAROLINE: 11 Strata: 3 Call Date: 12/07/19 Discharge Date: 12/06/19 Time of Call: 1650 Duration: 1 Admitting Diagnosis: INDIA, Hyperkalemia RN CM attempted to complete follow-up phone call after recent hospitalization. No answer, voice message left with return contact information.
--- NOTE | 2019-12-11 09:26 | OP.COLON_ITS ---
Patient Name: Kayden Burrows Procedure Date: 12/05/2019 9:31 AM Date of : 1945 Age: 74 Procedure: Colonoscopy Indications: Rectal bleeding Providers: Sindy Poole MD Medicines: Monitored Anesthesia Care Patient Profile: This is a 74 year old female. Last Colonoscopy: 3-5 years ago, patient unsure--in [place]?. Complications: No immediate complications. Procedure: Pre-Anesthesia Assessment: - Prior to the procedure, a History and Physical was performed, and patient medications and allergies were reviewed. The patient's tolerance of previous anesthesia was also reviewed. The risks and benefits of the procedure and the sedation options and risks were discussed with the patient. All questions were answered, and informed consent was obtained. Prior Anticoagulants: The patient has taken Plavix (clopidogrel), last dose was 1 day prior to procedure. ASA Grade Assessment: Per anesthesia. After reviewing the risks and benefits, the patient was deemed in satisfactory condition to undergo the procedure. After I obtained informed consent, the scope was passed under direct vision. Throughout the procedure, the patient's blood pressure, pulse, and oxygen saturations were monitored continuously. The colonoscope was introduced through the anus and advanced to the cecum, identified by the ileocecal valve. The colonoscopy was somewhat difficult due to a tortuous colon. Successful completion of the procedure was aided by applying abdominal pressure. The patient tolerated the procedure well. The quality of the bowel preparation was adequate. Scope In: 9:43:11 AM Scope Withdrawal Time 0 hours 15 minutes 57 seconds Scope Out: 10:10:30 AM Total Procedure Duration Time 0 hours 27 minutes 19 seconds Findings: Hemorrhoids were found on perianal exam. A few small-mouthed diverticula were found in the sigmoid colon and ascending colon. The exam was otherwise without abnormality on direct and retroflexion views. Impression: - Hemorrhoids found on perianal exam. - Diverticulosis in the sigmoid colon and in the ascending colon. - The examination was otherwise normal on direct and retroflexion views. - No specimens collected. Recommendation: - [facility]. - Continue present medications. - Repeat colonoscopy in 10 years depending on overall health at that time. Procedure Code(s): --- Professional --- 16172, Colonoscopy, flexible; diagnostic, including collection of specimen(s) by brushing or washing, when performed (separate procedure) Diagnosis Code(s): --- Professional --- K64.9, Unspecified hemorrhoids K62.5, Hemorrhage of anus and rectum K57.30, Diverticulosis of large intestine without perforation or abscess without bleeding CPT copyright 2017 [employer]. All rights reserved. The codes documented in this report are preliminary and upon dixonac operator review may be revised to meet current compliance requirements. MD Sindy Infante MD 12/05/2019 10:20:43 AM This report has been signed electronically. Number of Addenda: 0 Note Initiated On: 12/05/2019 9:31 AM
--- NOTE | 2019-12-11 09:27 | OP.CCLET_ITS ---
12/11/2019 Deon Alberts Re : Colonoscopy procedure for Kayden Alberts This procedure was performed on Thursday, December 05, 2019. My impressions and recommendations are as follows: Impressions : - Hemorrhoids found on perianal exam. - Diverticulosis in the sigmoid colon and in the ascending colon. - The examination was otherwise normal on direct and retroflexion views. - No specimens collected. Recommendations : - [facility]. - Continue present medications. - Repeat colonoscopy in 10 years depending on overall health at that time. My findings are described in the full procedure note, which is enclosed. If I can be of further assistance, please feel free to contact me at Doctor phone number(s): , Work: . Sincerely, MD Sindy Infante MD 12/05/2019 10:20:43 AM This report has been signed electronically.
== END 2019-12-06 13:00 | disposition home or self-care (01) | DRG 682 ==
LOC: ED 12:56 → MS3 13:15
PROVIDERS: Surgery; Admitting Provider Student in an Organized Health Care Education/Training Program; Emergency Provider Emergency Medicine; PCP Family Medicine; Visit Provider Student in an Organized Health Care Education/Training Program
PROC: 0DJD8ZZ Inspection of Lower Intestinal Tract, Via Natural or Artificial Opening Endoscopic (ICD-10-PCS; CPT 45378; principal; 2019-12-05 09:25)
DX: N17.9 Acute kidney failure, unspecified (principal); K57.31 Diverticulosis of large intestine without perforation or abscess with bleeding; J96.11 Chronic respiratory failure with hypoxia; E87.5 Hyperkalemia; I11.0 Hypertensive heart disease with heart failure; I50.9 Heart failure, unspecified; J44.9 Chronic obstructive pulmonary disease, unspecified; I25.10 Atherosclerotic heart disease of native coronary artery without angina pectoris; I27.20 Pulmonary hypertension, unspecified; K64.9 Unspecified hemorrhoids; E78.5 Hyperlipidemia, unspecified; K21.9 Gastro-esophageal reflux disease without esophagitis; G47.33 Obstructive sleep apnea (adult) (pediatric); F32.9 Major depressive disorder, single episode, unspecified; F41.9 Anxiety disorder, unspecified; E66.9 Obesity, unspecified; Z68.34 Body mass index [BMI] 34.0-34.9, adult; Z79.02 Long term (current) use of antithrombotics/antiplatelets; Z79.51 Long term (current) use of inhaled steroids; Z79.52 Long term (current) use of systemic steroids; Z79.899 Other long term (current) drug therapy; I25.2 Old myocardial infarction; Z87.891 Personal history of nicotine dependence
CPT/HCPCS: 36415; 76770; 80048; 80053; 81001; 84484; 85025; 87635; 93005; 94640; 99283; G2023; J7030; A4216; J2405; U0004

== ENCOUNTER 2020-03-04 08:09 | Observation (INO) | payer MEDICARE, SELFPAY ==
[2019-12-05 08:07] VITALS: BMI 34.7
[2020-03-04] VITALS (16 sets, daily range): BP systolic 136–195; BP diastolic 48–83; PULSE 67–86; RESP 16–20; TEMP 36.3–36.8; O2SAT 96–100; BMI 37.0; BMI 36.1
--- NOTE | 2020-03-04 08:32 | RAD_ITS ---
STUDY: X-RAY CHEST REASON FOR EXAM: Female, 74 years old. CHEST PAIN, SOB X 3 DAYS TECHNIQUE: Single AP portable view of the chest. COMPARISON: None. FINDINGS: The lungs are clear and expanded. There is no demonstrated pleural abnormality. There is mild cardiac enlargement. Normal mediastinum and carrol. Normal visualized pulmonary arteries. Normal visualized aortic arch and descending thoracic aorta. Normal visualized thoracic spine. There is degenerative osteoarthritis of the bilateral shoulders. There is no demonstrated abnormality of the visualized soft tissue structures of the upper abdomen. RAD/Chest 1 View (Portable) IMPRESSION: Moderate cardiomegaly. Electronically Signed: Marybel Lee, at 9:50 EDT Tel , Service support ,
--- NOTE | 2020-03-04 08:32 | EKG12_ITS ---
Test Reason : CP Blood Pressure : / mmHG Vent. Rate : 080 BPM Atrial Rate : 080 BPM P-R Int : 162 ms QRS Dur : 084 ms QT Int : 418 ms P-R-T Axes : 029 031 029 degrees QTc Int : 482 ms Normal sinus rhythm Normal ECG Confirmed by HE YATES ([id number]), food expeditor MICHAEL MUNGUIA ([id number]) on 03/10/2020 9:56:59 AM Referred By: AMADO Confirmed By:HE YATES
[2020-03-04 08:46] LABS: Absolute Lymphocyte Count 0.67 X10^3/uL (0.83-4.51); Basophil# 0.07 X10^3/uL; Basophil% 1.1 % (0-1); Eosinophil# 0.21 X10^3/uL; Eosinophils% 3.2 % (0-5); Hematocrit 29.3 % (37-47); Hemoglobin 8.4 g/dL (12.0-15.0); Lymphocyte # 0.67 X10^3/ul (4.0); Lymphocyte % 10.3 % (19-41); Mean Corp Hgb Conc 28.7 g/dL (32-36); Mean Corpuscular Hgb 23.7 pg (27.0-32.0); Mean Corpuscular Volume 82.8 fL (81-99); Mean Platelet Vol. 10.7 fl (6.2-12.0); Monocyte# 0.48 X10^3/uL; Monocyte% 7.4 % (0-10); NRBC Flagged by Analyzer 0 % (0-5); Neutrophil # 5.02 X10^3/uL (2.7-7.7); Neutrophil % 77.5 % (47-70); Platelet Count 258 K/mm3 (150-450); RBC Distribution Width CV 15.3 % (11.6-14.6); RBC Distribution Width SD 46.2 fl (35.1-43.9); Red Blood Count 3.54 M/mm3 (4.2-5.4); White Blood Count 6.5 K/mm3 (4.4-11.0)
[2020-03-04 08:58] LABS: Anion Gap 7 (5-15); BUN 9 mg/dL (7-18); Chloride 107 mmol/L (98-107); EST Glomerular Filtration Rate 58 mL/min (>60); Est Glom Filt Rate - Afr Amer 70 mL/min (>60); Estimated Creatinine Clearance 45.76 ml/min; Glucose 104 mg/dL (74-106); Potassium 3.6 mmol/L (3.5-5.1); Sodium Level 141 mmol/L (136-145)
[2020-03-04] MEDS: Nitroglycerin SL (ED/IMG/CATH) 0.4 MG TABLET SUBLINGUAL ×3 (09:01→09:11)
[2020-03-04 09:11] LABS: D-Dimer Quantitative (DVT/PE) 0.66 FEU/ug/m (0.27-0.49)
[2020-03-04 09:36] LABS: BNP,B-Type NATRIURETIC PEPTIDE 230.6 pg/mL (0-100)
[2020-03-04] MEDS: Ondansetron 4 MG/2 ML Vial IV (10:23)
[2020-03-04] MEDS: Morphine 4 MG/ML Syringe IV (10:23)
[2020-03-04] MEDS: Acetaminophen 500 MG Tablet 1000 MG PO ×2 (10:23→20:18)
--- NOTE | 2020-03-04 10:28 | ED.RN ---
UPON ENTERING ROOM TO GIVE MED, PT IS SLEEPING AND SPO2 IS 44%. PT IS SUPPOSED TO WEAR BI-PAP AT HOME WITH SLEEP. AFTER TALKING TO PT, HER SPO2 RETURNED TO 100%. PT REPORTS PAIN IS 10/10 WHILE SHE IS SLEEPING AND MORPHINE IS THE ONLY THING THAT TAKES HER PAIN AWAY.
--- NOTE | 2020-03-04 11:20 | NURSING ---
DR ARANGO FOR DR FISCHER
--- NOTE | 2020-03-04 11:25 | ED.VISSUMM ---
- ER Visit Summary Date of Service: 03/04/20 Chief Complaint: [Chest pain and shortness of breath] History of Present Illness: The patient is a 74 F [Zentz to the emergency department complaint of shortness of breath for the last 3 days. Patient also with chest tightness and heaviness. Currently she rates her pain about a 5 out of 10. Patient states she has had a mild sore throat. Patient complaining of a headache that is worse since the squad gave her nitroglycerin but she states she has chronic migraines. Patient also states that she is lost taste and smell sensation/stents over the last 3 to 4 weeks. Patient has minimal cough. Patient with history of coronary artery disease, CHF, COPD, hypertension, high cholesterol, anxiety, and depression. Patient has history of 2 cardiac stents.] Physical Examination: [HEENT-PERRLA, EOMI. Cranial nerves II through XII grossly intact. TMs clear. Mucous membranes moist. No adenopathy. Cardiovascular-regular rate and rhythm without murmur or ectopy Lungs-clear to auscultation, chest wall stable without crepitus or subcu emphysema Abdomen-normoactive bowel sounds, soft, nontender, no rebound or rigidity, no peritoneal signs. Extremities-intact ?4, normal range of motion, normal pulses, atraumatic] Test Results: [EKG obtained on arrival showed sinus rhythm with a ventricular rate of 80 bpm with no acute segment changes. CBC with it showing a 6.5, hemoglobin 8.4, hematocrit 29, platelets 258. Chemistries unremarkable. Troponin less than 0.017. BNP was 230. D-dimer was 0.66 and when adjusted for age it is normal. COVID-19 test was negative. Chest x-ray showed some cardiomegaly.] Emergency Department Course and Treatment: [Nitroglycerin sublingual in department. Patient continued to have pain and was given morphine 4 mg IV and Zofran 4 mg IV.] Treatment Plan: [Admit for further work-up and evaluation of her chest pain.] Disposition: [Admit] Impression: [Chest pain-rule out acute coronary syndrome] This note was generated with [employer] software. It may contain incorrect words, spelling, and punctuation that were not noted in review of the chart prior to signing ED Disposition - Plan for ED Patient: Referrals: Deon Alberts MD [Primary Care Provider] -
--- NOTE | 2020-03-04 11:28 | NURSING ---
PCU OBS NEENA ARANGO
--- NOTE | 2020-03-04 13:03 | HP.PCM_ITS ---
<Carissa Soares - Last Filed: 03/04/20 13:36> Problem List (1) Dyspnea Status: Chronic (2) Bilateral pleural effusion Status: Resolved (3) Pericardial effusion Status: Resolved (4) COPD (chronic obstructive pulmonary disease) Status: Chronic (5) Chronic respiratory failure with hypoxia Status: Chronic (6) HTN (hypertension) Status: Chronic (7) HLD (hyperlipidemia) Status: Chronic (8) CAD (coronary artery disease) Status: Chronic (9) OLEG (obstructive sleep apnea) Status: Chronic (10) Anxiety and depression Status: Chronic (11) Former tobacco use Status: Chronic (12) CHF exacerbation Status: Resolved (13) Acute kidney injury Status: Resolved History of Present Illness Date of Admission: 03/04/20 Chief Complaint: Chest pain, shortness of breath. The patient is a 74 year old F who presents emergency room due to chest pain and shortness of breath. 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 She reports a sharp pain in the center of her chest and increased dyspnea above her baseline. She states with prior chest pain, she has had more of a chest heaviness. She denies fever, chills. Denies cough, wheezing. Denies weight gain or increased swelling. Denies need for increased supplemental oxygen. Denies other associated complaints. She has a past medical history of CAD with history of PCI x2, chronic COPD with chronic hypoxic respiratory failure, hypertension, hyperlipidemia, anxiety, depression, chronic microcytic anemia, OLEG noncompliant with BiPAP, obesity, chronic migraines, GERD. Past Medical History Past Medical History (Chronic Problems): Chronic Problems Dyspnea (Chronic) COPD (chronic obstructive pulmonary disease) (Chronic) Chronic respiratory failure with hypoxia (Chronic) HTN (hypertension) (Chronic) HLD (hyperlipidemia) (Chronic) CAD (coronary artery disease) (Chronic) OLEG (obstructive sleep apnea) (Chronic) Anxiety and depression (Chronic) Former tobacco use (Chronic) Allergies No Known Allergies Allergy (Verified 03/04/20 08:16) Home Medications: Ambulatory Orders Medication Instructions Recorded Budesonide/Formoterol 160/4.5 2 puff INHALATION BID 09/10/19 [Symbicort 160/4.5 Mcg Inhaler (SP)] Clopidogrel Bisulfate [Plavix] 75 mg PO DAILY 09/10/19 Ipratropium/Albuterol Respimat 1 puff INHALATION 4X/DAY 09/10/19 [Combivent Respimat Inhal [place]] Atorvastatin Calcium [Lipitor] 40 mg PO QHS 11/13/19 Famotidine 40 mg PO BID 11/13/19 Furosemide [Lasix] 40 mg PO BID 11/13/19 Paroxetine HCl [Paxil] 30 mg PO DAILY 11/13/19 Potassium Chloride [K-Dur] 20 meq PO BIDCM 11/13/19 Prednisone [Deltasone] 40 mg PO DAILY #10 tab 11/13/19 Topiramate 50 mg PO QHS 11/13/19 Tylenol Pm Ex-Strength Caplet 3 tab PO QHS 12/04/19 Amlodipine [Norvasc] 10 mg PO DAILY 03/04/20 Surgical History: - - PCI x2 most recently 10/2017, tonsillectomy, appendectomy, cholecystectomy, hysterectomy. 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 Paternal History Items: - - Patient notes a paternal family history of heart disease as well as cancer, specifically stomach cancer. Review of Systems Constitutional: Denies: Chills, Fever, Weight Change HEENT: Denies: Head Aches, Sinus Congestion, Sinus Drainage Cardiovascular: Reports: Chest Pain. Denies: Light Headedness, Palpitations, Syncope Respiratory: Reports: Shortness of Breath. Denies: Cough, Sputum production Gastrointestinal: Denies: Abdominal Pain, Nausea, Vomiting Genitourinary: Denies: Dysuria Musculoskeletal: Denies: Joint Pain, Joint Tenderness Skin: Denies: Rash, Wounds Neurological: Denies: Numbness, Tingling, Focal weakness Psychiatric: Reports: Anxiety, Depression. Denies: Homicidal Ideations, Suicidal Ideations Hematologic/ Lymphatic: Denies: Easy Bruising, Easy Bleeding VTE Information - Inpt Only VTE Present on Admission: No VTE Mechan Device Prophylaxis: None VTE Pharm Prophylaxis ordered?: Yes - Physical Exam Vitals/I&O's: Vital Signs Temp Pulse Resp BP Pulse Ox 97.6 F L 70 18 160/53 H 100 03/04/20 12:19 03/04/20 12:19 03/04/20 12:19 03/04/20 12:19 03/04/20 12:19 Oxygen Flow Rate (L/min) 4 Oxygen Delivery Method Nasal Cannula Weight: 217 lb 2.485 oz Body Mass Index (BMI) 36.1 General: Alert, Oriented x3, Cooperative HEENT: Atraumatic, PERRLA, EOMI, Normocephalic Oral: Dry Mucosa Neck: Supple, No JVD, Negative Carotid Bruits Lungs: Clear to auscultation, Diminished Cardiovascular: Regular rate, No murmurs Abdomen: Bowel Sounds Present, Soft, Non Tender, Non-Distended, Obese Extremities: No clubbing, No cyanosis, No edema Skin: No rashes, No breakdown Musculoskeletal: No Tenderness to Palpation of Joints or Extremities Neurological: Cranial nerves II-XII grossly intact, Neuro grossly intact Psych/Mental Status: Normal Affect, Appropriate Laboratory Results 03/04/20 08:15: WBC 6.5, RBC 3.54 L, Hgb 8.4 L, Hct 29.3 L, MCV 82.8, MCH 23.7 L , MCHC 28.7 L, RDW Std Deviation 46.2 H, RDW Coeff of Ganesh 15.3 H, Plt Count 258, MPV 10.7, Immature Gran % (Auto) 0.500, Neut % (Auto) 77.5 H, Lymph % (Auto) 10.3 L, [place] % (Auto) 7.4, Eos % (Auto) 3.2, Baso % (Auto) 1.1 H, Absolute Neuts (auto) 5.0, Absolute Lymphs (auto) 0.67 L, Nucleated RBC % 0 03/04/20 08:15: D-Dimer Quant (PE/DVT) 0.66 H* 03/04/20 08:15: Sodium 141, Potassium 3.6, Chloride 107, Carbon Dioxide 27.0, Anion Gap 7, BUN 9, Creatinine 1.00, Estim Creat Clear Calc 45.76, Est GFR (MDRD) Af Amer 70, Est GFR (MDRD) Non-Af 58 L, BUN/Creatinine Ratio 9.0 L, Glucose 104, Calcium 9.0, Troponin I 0.017 03/04/20 08:15: B-Natriuretic Peptide 230.6 H 03/04/20 08:30: COVID-19 (MANJINDER) Not Detected 03/04/20 12:05: Troponin I 0.018 Current Medications Sodium Chloride () 250 mls @ 15 mls/hr IV .[id number] PRN PRN Reason: Saline Flush Sodium Chloride () 250 mls @ 15 mls/hr IV .[id number] PRN PRN Reason: Additional IVPB Infusion Melatonin (Melatonin) 3 mg PO QHS PRN PRN PRN Reason: INSOMNIA Ondansetron HCl (Zofran) 4 mg IV Q8H PRN PRN PRN Reason: NAUSEA/VOMITING Sodium Chloride () 10 - 40 ml IV UD PRN PRN Reason: SALINE FLUSH Assessment/Plan All Active Problems Acute kidney injury (Resolved) Bilateral pleural effusion (Resolved) CHF exacerbation (Resolved) Pericardial effusion (Resolved) 1. Chest pain, dyspnea-BNP 230. CXR shows cardiomegaly. COVID negative. Echo August 2019 demonstrated an EF of 60%, mild mitral valve insufficiency, mild to moderate tricuspid valve insufficiency, mild aortic stenosis, RVSP estimated to be 41 mmHg. IV Lasix x1. Trend enzymes. Stress test in a.m. if stress test unremarkable, consider obtaining CTA. 2. CAD with history of PCI x2-continue statin, Plavix. 3. Chronic COPD with chronic hypoxic respiratory failure-as needed albuterol aerosol. Continue supplement oxygen to maintain O2 sat above 90%. 4. Hypertension-stable, continue amlodipine, Lasix. 5. Hyperlipidemia-continue statin. 6. Anxiety/depression-continue home Paxil regimen. 7. Chronic microcytic anemia-stable, trend CBC. 8. OLEG-noncompliant with BiPAP. 9. Obesity-encouraged diet and lifestyle modifications. 10. Chronic migraines-continue Topamax regimen. 11. GERD-continue famotidine. DVT prophylaxis-Lovenox subcu CODE STATUS: Discussed in length with patient. Patient elects for DNR CCA no intubation status. This patient was seen by ALLAN Child under the supervision of Dr. Jonas. <Jose Angel Jonas F - Last Filed: 03/04/20 15:26> History of Present Illness The patient is a 74 year old F [] Past Medical History Allergies No Known Allergies Allergy (Verified 03/04/20 08:16) - Physical Exam Vitals/I&O's: Vital Signs Temp Pulse Resp BP Pulse Ox 97.6 F L 70 18 160/53 H 100 03/04/20 12:19 03/04/20 12:19 03/04/20 12:19 03/04/20 12:19 03/04/20 12:19 Oxygen Flow Rate (L/min) 4 Oxygen Delivery Method Nasal Cannula Weight: 217 lb 2.485 oz Body Mass Index (BMI) 36.1 Laboratory Results 03/04/20 08:15: WBC 6.5, RBC 3.54 L, Hgb 8.4 L, Hct 29.3 L, MCV 82.8, MCH 23.7 L , MCHC 28.7 L, RDW Std Deviation 46.2 H, RDW Coeff of Ganesh 15.3 H, Plt Count 258, MPV 10.7, Immature Gran % (Auto) 0.500, Neut % (Auto) 77.5 H, Lymph % (Auto) 10.3 L, [place] % (Auto) 7.4, Eos % (Auto) 3.2, Baso % (Auto) 1.1 H, Absolute Neuts (auto) 5.0, Absolute Lymphs (auto) 0.67 L, Nucleated RBC % 0 03/04/20 08:15: D-Dimer Quant (PE/DVT) 0.66 H* 03/04/20 08:15: Sodium 141, Potassium 3.6, Chloride 107, Carbon Dioxide 27.0, Anion Gap 7, BUN 9, Creatinine 1.00, Estim Creat Clear Calc 45.76, Est GFR (MDRD) Af Amer 70, Est GFR (MDRD) Non-Af 58 L, BUN/Creatinine Ratio 9.0 L, Glucose 104, Calcium 9.0, Troponin I 0.017 03/04/20 08:15: B-Natriuretic Peptide 230.6 H 03/04/20 08:30: COVID-19 (MANJINDER) Not Detected 03/04/20 12:05: Troponin I 0.018 03/04/20 14:45: Troponin I Pending Current Medications Albuterol Sulfate (Ventolin Aerosols) 2.5 mg INHALATION Q2H PRN PRN PRN Reason: SHORTNESS OF BREATH Alprazolam (Xanax) 0.25 mg PO QHS PRN PRN PRN Reason: INSOMNIA Amlodipine Besylate (Norvasc) 10 mg PO DAILY ADÁN Atorvastatin Calcium (Lipitor) 40 mg PO QHS ADÁN Clopidogrel Bisulfate (Plavix) 75 mg PO DAILY ADÁN Enoxaparin Sodium (Lovenox) 40 mg SC DAILY@0600 ADÁN Famotidine (Pepcid) 40 mg PO BID ADÁN Furosemide (Lasix) 40 mg PO BIDLX ADÁN Sodium Chloride () 250 mls @ 15 mls/hr IV .[id number] PRN PRN Reason: Saline Flush Sodium Chloride () 250 mls @ 15 mls/hr IV .[id number] PRN PRN Reason: Additional IVPB Infusion Melatonin (Melatonin) 3 mg PO QHS PRN PRN PRN Reason: INSOMNIA Ondansetron HCl (Zofran) 4 mg IV Q8H PRN PRN PRN Reason: NAUSEA/VOMITING Paroxetine HCl (Paxil) 30 mg PO DAILY ADÁN Potassium Chloride (K-Dur) 20 meq PO BIDCM ADÁN Sodium Chloride () 10 - 40 ml IV UD PRN PRN Reason: SALINE FLUSH Topiramate (Topamax) 50 mg PO QHS ADÁN Addendum: Dr. Jonas I personally examined the patient and reviewed the chart. I agree with the above. 74-year-old female with chronic hypoxic respiratory failure secondary to COPD and heart failure presents with chest pain/pressure that was not relieved with nitro. She is on a chronic 4 L nasal cannula and this has not had to go up. She denies any fevers or chills, no cough or wheezing. She has not noticed any lower extremity edema or pain. In the ER her initial troponin was normal, with a BNP that was lower than what it was in August with her CHF exacerbation. We will plan for a stress test in the morning to evaluate her chest pressure, her d-dimer was also slightly elevated at 0.66 though this is negative for her age and she has no other concerning signs or symptoms for a PE at this time. OBSV E&M: [id number] Initial observation care L3
[2020-03-04] MEDS: FLUCONAZOLE 150 MG TABLET PO (14:05)
[2020-03-04] MEDS: Furosemide 40 MG/4 ML Vial IV (14:05)
--- NOTE | 2020-03-04 15:41 | EKG12_ITS ---
Test Reason : CP Blood Pressure : / mmHG Vent. Rate : 069 BPM Atrial Rate : 069 BPM P-R Int : 166 ms QRS Dur : 084 ms QT Int : 440 ms P-R-T Axes : 046 043 042 degrees QTc Int : 471 ms Normal sinus rhythm Normal ECG When compared with ECG of 04-MAR-2020 08:32, MANUAL COMPARISON REQUIRED, DATA IS UNCONFIRMED Confirmed by HE YATES ([id number]), marketing editor MICHAEL MUNGUIA ([id number]) on 03/10/2020 10:05:33 AM Referred By: CONCHITA Confirmed By:HE YATES
[2020-03-04] MEDS: Ketorolac 15 MG/ML Vial IV (16:16)
[2020-03-04] MEDS: Furosemide 40 MG Tablet PO (18:34)
[2020-03-04] MEDS: Topiramate 50 MG Tablet PO (20:15)
[2020-03-04] MEDS: Famotidine 20 MG Tablet 40 MG PO (20:15)
[2020-03-04] MEDS: Atorvastatin Calcium 40 MG Tablet PO (20:15)
[2020-03-04] MEDS: MELATONIN 3 MG TABLET PO (20:18)
[2020-03-04] MEDS: ALPRAZolam 0.25 MG Tablet PO (20:18)
[2020-03-05] VITALS (7 sets, daily range): BP systolic 122–165; BP diastolic 56–88; PULSE 71–88; RESP 16–20; TEMP 36.1–36.6; O2SAT 96–100
--- NOTE | 2020-03-05 05:10 | NURSING ---
Pt c/o to romat resp therapy she was having chest pressure. ekg done. Pt then said she feels a breathing tx would help. resp notified for breathing tx
[2020-03-05] MEDS: Clopidogrel Bisulfate 75 MG Tablet PO (05:11)
[2020-03-05] MEDS: Albuterol 2.5 MG/3 ML VIAL.NEB. INHALATION (05:16)
--- NOTE | 2020-03-05 05:43 | NURSING ---
vitals done. denies any cp at this time. Said resp tx helped
--- NOTE | 2020-03-05 06:00 | EKG12_ITS ---
Test Reason : AM EKG Blood Pressure : / mmHG Vent. Rate : 079 BPM Atrial Rate : 079 BPM P-R Int : 156 ms QRS Dur : 084 ms QT Int : 418 ms P-R-T Axes : 052 045 050 degrees QTc Int : 479 ms Normal sinus rhythm Normal ECG When compared with ECG of 04-MAR-2020 12:26, MANUAL COMPARISON REQUIRED, DATA IS UNCONFIRMED Confirmed by HE YATES ([id number]), desk editor MICHAEL MUNGUIA ([id number]) on 03/10/2020 10:05:59 AM Referred By: CONCHITA Confirmed By:HE YATES
[2020-03-05 06:05] LABS: Absolute Neutrophil Count 3.6 X10^3/uL (2.0-7.7); Basophil# 0.07 X10^3/uL; Basophil% 1.4 % (0-1); Eosinophil# 0.18 X10^3/uL; Eosinophils% 3.6 % (0-5); Hematocrit 27.6 % (37-47); Hemoglobin 7.4 g/dL (12.0-15.0); Mean Corp Hgb Conc 26.8 g/dL (32-36); Mean Corpuscular Hgb 23.3 pg (27.0-32.0); Mean Corpuscular Volume 86.8 fL (81-99); Monocyte# 0.44 X10^3/uL; Monocyte% 8.8 % (0-10); NRBC Flagged by Analyzer 0 % (0-5); Neutrophil # 3.59 X10^3/uL (2.7-7.7); Neutrophil % 71.8 % (47-70); Platelet Count 201 K/mm3 (150-450); RBC Distribution Width CV 15.4 % (11.6-14.6); RBC Distribution Width SD 48.7 fl (35.1-43.9); Red Blood Count 3.18 M/mm3 (4.2-5.4)
[2020-03-05 06:31] LABS: Anion Gap 2 (5-15); BUN 15 mg/dL (7-18); BUN/Creat Ratio 14.4 RATIO (10-20); Calcium,Total 8.4 mg/dL (8.5-10.1); Chloride 104 mmol/L (98-107); Creatinine, Serum 1.04 mg/dL (0.55-1.02); EST Glomerular Filtration Rate 55 mL/min (>60); Est Glom Filt Rate - Afr Amer 67 mL/min (>60); Glucose 105 mg/dL (74-106); Potassium 3.4 mmol/L (3.5-5.1); Sodium Level 139 mmol/L (136-145)
[2020-03-05] MEDS: PARoxetine 10 MG Tablet 30 MG PO (11:00)
[2020-03-05] MEDS: Famotidine 20 MG Tablet 40 MG PO (11:01)
[2020-03-05] MEDS: amLODIPine 10 MG Tablet PO (11:04)
[2020-03-05] MEDS: Furosemide 40 MG Tablet PO (12:06)
--- NOTE | 2020-03-05 12:29 | CT_ITS ---
STUDY: CTA CHEST REASON FOR EXAM: Female, 74 years old. [facility] CHEST,DYSPNEA -- COPD,EMPHYSEMAQ,CHF,CAD,PRIOR SMOKER -- SURG-GB,APPY,HYST RADIATION DOSAGE (If Supplied By Facility): CTDIvol = ( 13.34 ) mGy, DLP = ( 440.94 ) mGycm TECHNIQUE: The examination was performed with the intravenous administration of 100CC ISOVUE 370. Post-processing of the angiographic images was performed, with multiplanar reformation and 3D reconstruction. Individualized dose optimization techniques were used for this CT. COMPARISON: None. FINDINGS: Normal enhancement of the main pulmonary artery and right and left pulmonary arteries. Normal enhancement of the bilateral peripheral pulmonary arteries. There is no demonstrated pulmonary embolism. Normal thoracic aorta and visualized great vessels. There is no demonstrated aortic dissection. Normal heart and pericardium. Normal mediastinum. Normal hilar regions. Normal visualized trachea and bronchi. Subsegmental atelectasis are noted in the lung bases bilaterally more prominent on the left side. Normal pulmonary parenchyma. Small bilateral pleural effusions are noted. Normal chest wall structures. There are multiple old healed bilateral rib fractures. Normal visualized upper abdomen. CT/CTA Chest W/WO Contrast IMPRESSION: No demonstrated pulmonary embolism or arterial dissection. Electronically Signed: Marybel Lee, at 14:56 EDT Tel , Service support ,
--- NOTE | 2020-03-05 13:35 | DCINST_ITS ---
You will use the following diet at home:: Calorie/Carbohydrate Controlled (specify 1200, 1400, etc), Cardiac Discharge Activity: Return to Normal Activity Call your doctor if you observe: Shortness of breath, Dizziness, Fainting spells, Chest pain Allergies/Adverse Reactions: Allergies No Known Allergies Allergy (Verified 03/04/20 08:16) Medications to take at Discharge Budesonide/Formoterol 160/4.5 [Symbicort 160/4.5 Mcg Inhaler (SP)] 2 puff INHALATION BID 09/10/19 Clopidogrel Bisulfate [Plavix] 75 mg PO DAILY 09/10/19 Ipratropium/Albuterol Respimat [Combivent Respimat Inhal [place]] 1 puff INHALATION 4X/DAY 09/10/19 Atorvastatin Calcium [Lipitor] 40 mg PO QHS 11/13/19 Famotidine 40 mg PO BID 11/13/19 Furosemide [Lasix] 40 mg PO BID 11/13/19 Paroxetine HCl [Paxil] 30 mg PO DAILY 11/13/19 Potassium Chloride [K-Dur] 20 meq PO BIDCM 11/13/19 Topiramate 50 mg PO QHS 11/13/19 Tylenol Pm Ex-Strength Caplet 3 tab PO QHS 12/04/19 Amlodipine [Norvasc] 10 mg PO DAILY 03/04/20 Primary Care Physician: Deon Alberts MD [Primary Care Provider] - Please follow up with your Primary Care Physician in: 1 Week Test Results: Test results from this visit will be discussed in further detail at your follow- up appointment, if applicable. Proposed Discharge Date: 03/05/20
--- NOTE | 2020-03-05 13:38 | PCM.DC.SUM ---
<Carissa Soares - Last Filed: 03/05/20 13:56> Discharge Date and Diagnosis Date of Admission: 03/04/20 Date of Discharge: 03/05/20 - Primary Discharge Diagnosis Acute Problems: 1. Chest pain, dyspnea-ACS ruled out. 2. CAD with history of PCI x2 3. Chronic COPD with chronic hypoxic respiratory failure 4. Hypertension 5. Hyperlipidemia 6. Anxiety/depression 7. Chronic microcytic anemia 8. OLEG 9. Obesity 10. Chronic migraines 11. GERD - Secondary Discharge Diagnosis Chronic Problems: Chronic Problems Dyspnea (Chronic) COPD (chronic obstructive pulmonary disease) (Chronic) Chronic respiratory failure with hypoxia (Chronic) HTN (hypertension) (Chronic) HLD (hyperlipidemia) (Chronic) CAD (coronary artery disease) (Chronic) OLEG (obstructive sleep apnea) (Chronic) Anxiety and depression (Chronic) Former tobacco use (Chronic) Hospital Course and Treatment Imaging Results: Diagnostic Data Chest X-Ray 03/04/20 08:32 IMPRESSION: Moderate cardiomegaly. Electronically Signed: Marybel Lee, at 9:50 EDT Tel , Service support , Operations: None Procedures: None Summary of Care Provided: The patient is a 74 year old F admitted 03/04/2020 due to chest pain and shortness of breath. 1. Chest pain, dyspnea-BNP 230. CXR shows cardiomegaly. COVID negative. Echo August 2019 demonstrated an EF of 60%, mild mitral valve insufficiency, mild to moderate tricuspid valve insufficiency, mild aortic stenosis, RVSP estimated to be 41 mmHg. IV Lasix x1. Troponin negative. Stress test without evidence of ischemia. CTA pending and will be reviewed prior to discharge. Follow-up with PCP in 1 week. 2. CAD with history of PCI x2-continue statin, Plavix. 3. Chronic COPD with chronic hypoxic respiratory failure-as needed albuterol aerosol. Continue supplement oxygen to maintain O2 sat above 90%. 4. Hypertension-stable, continue amlodipine, Lasix. 5. Hyperlipidemia-continue statin. 6. Anxiety/depression-continue home Paxil regimen. 7. Chronic microcytic anemia-stable, trend CBC. 8. OLEG-noncompliant with BiPAP. 9. Obesity-encouraged diet and lifestyle modifications. 10. Chronic migraines-continue Topamax regimen. 11. GERD-continue famotidine. General: Alert, Oriented x3, Cooperative HEENT: Atraumatic, PERRLA, EOMI, Normocephalic Oral: Dry Mucosa Neck: Supple, No JVD, Negative Carotid Bruits Lungs: Clear to auscultation, Diminished Cardiovascular: Regular rate, No murmurs Abdomen: Bowel Sounds Present, Soft, Non Tender, Non-Distended, Obese Extremities: No clubbing, No cyanosis, No edema Skin: No rashes, No breakdown Musculoskeletal: No Tenderness to Palpation of Joints or Extremities Neurological: Cranial nerves II-XII grossly intact, Neuro grossly intact Psych/Mental Status: Normal Affect, Appropriate Patient seen and examined prior to discharge. Physical assessment as noted above. Patient is stable for discharge with follow up recommendations as noted above. This patient was seen by ALLAN Child under the supervision of Dr. Jonas. - Physical Exam Vitals/I&O's: Vital Signs Temp Pulse Resp BP Pulse Ox 97.0 F L 83 16 122/57 H 96 03/05/20 10:54 03/05/20 10:54 03/05/20 10:54 03/05/20 10:54 03/05/20 10:54 Oxygen Flow Rate (L/min) 4 Oxygen Delivery Method Nasal Cannula Weight: 217 lb 2.485 oz Body Mass Index (BMI) 36.1 Intake and Output for Last 24 Hours 03/03/20 03/04/20 03/05/20 23:59 23:59 23:59 Intake Total 700 / 700 Balance 700 / 700 Laboratory Results 03/04/20 14:45: Troponin I 0.025 03/05/20 05:40: WBC 5.0, RBC 3.18 L, Hgb 7.4 L, Hct 27.6 L, MCV 86.8, MCH 23.3 L, MCHC 26.8 L D, RDW Std Deviation 48.7 H, RDW Coeff of Ganesh 15.4 H, Plt Count 201, MPV 11.0, Immature Gran % (Auto) 0.400, Neut % (Auto) 71.8 H, Lymph % (Auto) 14.0 L, [place] % (Auto) 8.8, Eos % (Auto) 3.6, Baso % (Auto) 1.4 H, Absolute Neuts (auto) 3.6, Absolute Lymphs (auto) 0.70 L, Nucleated RBC % 0 03/05/20 05:40: Sodium 139, Potassium 3.4 L, Chloride 104, Carbon Dioxide 33.0 H, Anion Gap 2 L, BUN 15, Creatinine 1.04 H, Estim Creat Clear Calc 44.00, Est GFR (MDRD) Af Amer 67, Est GFR (MDRD) Non-Af 55 L, BUN/Creatinine Ratio 14.4, Glucose 105, Calcium 8.4 L Current Medications Acetaminophen (Tylenol) 1,000 mg PO Q8H PRN PRN PRN Reason: Pain Score 1-1010 Last Admin: 03/04/20 20:18 Dose: 1,000 mg Documented by: Albuterol Sulfate (Ventolin Aerosols) 2.5 mg INHALATION Q2H PRN PRN PRN Reason: SHORTNESS OF BREATH Last Admin: 03/05/20 05:16 Dose: 2.5 mg Documented by: Alprazolam (Xanax) 0.25 mg PO QHS PRN PRN PRN Reason: INSOMNIA Last Admin: 03/04/20 20:18 Dose: 0.25 mg Documented by: Amlodipine Besylate (Norvasc) 10 mg PO DAILY [facility] Last Admin: 03/05/20 11:04 Dose: 10 mg Documented by: Atorvastatin Calcium (Lipitor) 40 mg PO QHS [facility] Last Admin: 03/04/20 20:15 Dose: 40 mg Documented by: Clopidogrel Bisulfate (Plavix) 75 mg PO DAILY [facility] Last Admin: 03/05/20 05:11 Dose: 75 mg Documented by: Enoxaparin Sodium (Lovenox) 40 mg SC DAILY@0600 [facility] Last Admin: 03/04/20 22:21 Dose: Not Given Documented by: Famotidine (Pepcid) 40 mg PO BID [facility] Last Admin: 03/05/20 11:01 Dose: 40 mg Documented by: Furosemide (Lasix) 40 mg PO BIDLX [facility] Last Admin: 03/05/20 12:06 Dose: 40 mg Documented by: Sodium Chloride () 250 mls @ 15 mls/hr IV .[id number] PRN PRN Reason: Saline Flush Sodium Chloride () 250 mls @ 15 mls/hr IV .[id number] PRN PRN Reason: Additional IVPB Infusion Melatonin (Melatonin) 3 mg PO QHS PRN PRN PRN Reason: INSOMNIA Last Admin: 03/04/20 20:18 Dose: 3 mg Documented by: Ondansetron HCl (Zofran) 4 mg IV Q8H PRN PRN PRN Reason: NAUSEA/VOMITING Paroxetine HCl (Paxil) 30 mg PO DAILY [facility] Last Admin: 03/05/20 11:00 Dose: 30 mg Documented by: Potassium Chloride (K-Dur) 20 meq PO BIDCM [facility] Last Admin: 03/05/20 05:11 Dose: 20 meq Documented by: Sodium Chloride () 10 - 40 ml IV UD PRN PRN Reason: SALINE FLUSH Topiramate (Topamax) 50 mg PO QHS [facility] Last Admin: 03/04/20 20:15 Dose: 50 mg Documented by: Discharge Diet: No Restrictions Discharge Activity: Return to Normal Activity Call your doctor if you observe: Shortness of breath, Dizziness, Fainting spells, Chest pain Home Medications: Medications to take at Discharge Budesonide/Formoterol 160/4.5 [Symbicort 160/4.5 Mcg Inhaler (SP)] 2 puff INHALATION BID 09/10/19 Clopidogrel Bisulfate [Plavix] 75 mg PO DAILY 09/10/19 Ipratropium/Albuterol Respimat [Combivent Respimat Inhal [place]] 1 puff INHALATION 4X/DAY 09/10/19 Atorvastatin Calcium [Lipitor] 40 mg PO QHS 11/13/19 Famotidine 40 mg PO BID 11/13/19 Furosemide [Lasix] 40 mg PO BID 11/13/19 Paroxetine HCl [Paxil] 30 mg PO DAILY 11/13/19 Potassium Chloride [K-Dur] 20 meq PO BIDCM 11/13/19 Topiramate 50 mg PO QHS 11/13/19 Tylenol Pm Ex-Strength Caplet 3 tab PO QHS 12/04/19 Amlodipine [Norvasc] 10 mg PO DAILY 03/04/20 Primary Care Physician: Deon Alberts MD [Primary Care Provider] - Please follow up with your Primary Care Physician in: 1 Week Disposition: Home Minutes spent on discharge:: 35 Patient Condition:: Stable Medical Necessity - Tobacco Use Smoking Status: Former smoker Meaningful Use Info Meaningful Use Diagnoses (Choose all that apply): None applicable <MoiserauldaryaJose Angel F - Last Filed: 03/05/20 16:15> Discharge Date and Diagnosis - Secondary Discharge Diagnosis Chronic Problems: Chronic Problems Dyspnea (Chronic) COPD (chronic obstructive pulmonary disease) (Chronic) Chronic respiratory failure with hypoxia (Chronic) HTN (hypertension) (Chronic) HLD (hyperlipidemia) (Chronic) CAD (coronary artery disease) (Chronic) OLEG (obstructive sleep apnea) (Chronic) Anxiety and depression (Chronic) Former tobacco use (Chronic) Hospital Course and Treatment Imaging Results: 03/05/20 12:29 CTA Chest W/WO Contrast [CT] Stat Summary of Care Provided: The patient is a 74 year old F [] - Physical Exam Vitals/I&O's: Vital Signs Temp Pulse Resp BP Pulse Ox 97.2 F L 71 16 135/75 H 100 03/05/20 14:43 03/05/20 14:43 03/05/20 14:43 03/05/20 14:43 03/05/20 14:43 Oxygen Flow Rate (L/min) 4 Oxygen Delivery Method Nasal Cannula Weight: 217 lb 2.485 oz Body Mass Index (BMI) 36.1 Intake and Output for Last 24 Hours 03/03/20 03/04/20 03/05/20 23:59 23:59 23:59 Intake Total 700 / 700 Balance 700 / 700 Laboratory Results 03/04/20 14:45: Troponin I 0.025 03/05/20 05:40: WBC 5.0, RBC 3.18 L, Hgb 7.4 L, Hct 27.6 L, MCV 86.8, MCH 23.3 L, MCHC 26.8 L D, RDW Std Deviation 48.7 H, RDW Coeff of Ganesh 15.4 H, Plt Count 201, MPV 11.0, Immature Gran % (Auto) 0.400, Neut % (Auto) 71.8 H, Lymph % (Auto) 14.0 L, [place] % (Auto) 8.8, Eos % (Auto) 3.6, Baso % (Auto) 1.4 H, Absolute Neuts (auto) 3.6, Absolute Lymphs (auto) 0.70 L, Nucleated RBC % 0 03/05/20 05:40: Sodium 139, Potassium 3.4 L, Chloride 104, Carbon Dioxide 33.0 H, Anion Gap 2 L, BUN 15, Creatinine 1.04 H, Estim Creat Clear Calc 44.00, Est GFR (MDRD) Af Amer 67, Est GFR (MDRD) Non-Af 55 L, BUN/Creatinine Ratio 14.4, Glucose 105, Calcium 8.4 L Current Medications Acetaminophen (Tylenol) 1,000 mg PO Q8H PRN PRN PRN Reason: Pain Score 1-10/10 Last Admin: 03/04/20 20:18 Dose: 1,000 mg Documented by: Albuterol Sulfate (Ventolin Aerosols) 2.5 mg INHALATION Q2H PRN PRN PRN Reason: SHORTNESS OF BREATH Last Admin: 03/05/20 05:16 Dose: 2.5 mg Documented by: Alprazolam (Xanax) 0.25 mg PO QHS PRN PRN PRN Reason: INSOMNIA Last Admin: 03/04/20 20:18 Dose: 0.25 mg Documented by: Amlodipine Besylate (Norvasc) 10 mg PO DAILY [facility] Last Admin: 03/05/20 11:04 Dose: 10 mg Documented by: Atorvastatin Calcium (Lipitor) 40 mg PO QHS [facility] Last Admin: 03/04/20 20:15 Dose: 40 mg Documented by: Clopidogrel Bisulfate (Plavix) 75 mg PO DAILY [facility] Last Admin: 03/05/20 05:11 Dose: 75 mg Documented by: Enoxaparin Sodium (Lovenox) 40 mg SC DAILY@0600 [facility] Last Admin: 03/04/20 22:21 Dose: Not Given Documented by: Famotidine (Pepcid) 40 mg PO BID [facility] Last Admin: 03/05/20 11:01 Dose: 40 mg Documented by: Furosemide (Lasix) 40 mg PO BIDLX [facility] Last Admin: 03/05/20 12:06 Dose: 40 mg Documented by: Sodium Chloride () 250 mls @ 15 mls/hr IV .[id number] PRN PRN Reason: Saline Flush Sodium Chloride () 250 mls @ 15 mls/hr IV .[id number] PRN PRN Reason: Additional IVPB Infusion Melatonin (Melatonin) 3 mg PO QHS PRN PRN PRN Reason: INSOMNIA Last Admin: 03/04/20 20:18 Dose: 3 mg Documented by: Ondansetron HCl (Zofran) 4 mg IV Q8H PRN PRN PRN Reason: NAUSEA/VOMITING Paroxetine HCl (Paxil) 30 mg PO DAILY [facility] Last Admin: 03/05/20 11:00 Dose: 30 mg Documented by: Potassium Chloride (K-Dur) 20 meq PO BIDCM [facility] Last Admin: 03/05/20 05:11 Dose: 20 meq Documented by: Sodium Chloride () 10 - 40 ml IV UD PRN PRN Reason: SALINE FLUSH Topiramate (Topamax) 50 mg PO QHS [facility] Last Admin: 03/04/20 20:15 Dose: 50 mg Documented by: Addendum: Dr. Jonas I personally examined the patient and reviewed the chart. I agree with the above. 74-year-old female with chronic hypoxic respiratory failure secondary to COPD and heart failure presents with chest pain/pressure that was not relieved with nitro. She is on a chronic 4 L nasal cannula and this has not had to go up. She denies any fevers or chills, no cough or wheezing. She has not noticed any lower extremity edema or pain. In the ER her initial troponin was normal, with a BNP that was lower than what it was in August with her CHF exacerbation. We will plan for a stress test in the morning to evaluate her chest pressure, her d-dimer was also slightly elevated at 0.66 though this is negative for her age and she has no other concerning signs or symptoms for a PE at this time. 03/05/2020: She underwent a stress test today despite having ongoing chest pain and her stress test was normal. Because of the ongoing pain and had a slightly elevated d-dimer to 0.66, despite this being normal for age, a CTA was obtained of her chest which was also negative for a PE. This was discussed with her and the plan for discharge was discussed and she expressed understanding of the risks and benefits of going home and would like to go home today. Throughout her stay she did not have an increasing oxygen requirement and her troponins were unremarkable OBSV E&M: [id number] Observation care discharge
--- NOTE | 2020-03-05 14:33 | CASEMGMT ---
Patient has a Healthcare Power of Steel [employer] and a Healthcare Living Will on file at [facility]. Sabrina LAZARO MSW
--- NOTE | 2020-03-05 14:34 | CASEMGMT ---
This RN MARCIA to room with SEBASTIAN form at this time, explanation done-pt voices understanding, and signs SEBASTIAN form at this time. Original to chart and copy to pt at this time. Pt voices no further questions/concerns/needs at this time. SStaten NADER KENNEDY
--- NOTE | 2020-03-05 17:33 | STRESSREP ---
Stress Test Report Pharmacologic myocardial perfusion stress test. 74-year-old lady with a history of chest pain. Stress protocol: Resting EKG demonstrates normal sinus rhythm with a rate of 75 bpm normal intervals are noted. 0.4 mg of regadenoson was infused per usual protocol followed by rapid intravenous saline flush injection continuous EKG monitoring was performed. The resting heart rate was 76 bpm with a maximum heart rate of 86 bpm. At rest and during infusion there were no ST or T wave changes noted to suggest abnormal flow reserve. Myocardial perfusion protocol. 12.0 mCi of technetium 99m sestamibi was injected at rest. 0.4 mg of regadenoson was infused per usual protocol. At peak infusion 34.3 mCi of technetium 99m sestamibi was injected stress images were obtained stress and rest images were reconstructed and compared in the short axis vertical long horizontal long axis. Gated images were also obtained Perfusion SPECT analysis: Review of the stress images demonstrate normal uptake of tracer noted in all areas of the myocardium the resting images similarly demonstrate normal uptake of tracer noted in all areas of the myocardium. No areas of reversibility are noted suggest ischemia no previous infarct is noted. Gated SPECT analysis: The gated ejection fraction is 60%. Conclusion: Normal pharmacologic myocardial perfusion stress test. Preserved ejection fraction.
== END 2020-03-05 16:59 | disposition home or self-care (01) ==
LOC: ED 10:39 → PCU 11:43
PROVIDERS: Admitting Provider Family Medicine; Emergency Provider Emergency Medicine; PCP Family Medicine; Visit Provider Family Medicine
DX: R07.89 Other chest pain (principal); F41.9 Anxiety disorder, unspecified; F32.9 Major depressive disorder, single episode, unspecified; I11.0 Hypertensive heart disease with heart failure; J44.9 Chronic obstructive pulmonary disease, unspecified; I50.9 Heart failure, unspecified; I25.10 Atherosclerotic heart disease of native coronary artery without angina pectoris; E78.5 Hyperlipidemia, unspecified; G47.33 Obstructive sleep apnea (adult) (pediatric); J96.11 Chronic respiratory failure with hypoxia; D50.9 Iron deficiency anemia, unspecified; K21.9 Gastro-esophageal reflux disease without esophagitis; G43.909 Migraine, unspecified, not intractable, without status migrainosus; E66.9 Obesity, unspecified; Z87.891 Personal history of nicotine dependence; Z79.899 Other long term (current) drug therapy; Z79.02 Long term (current) use of antithrombotics/antiplatelets; Z79.51 Long term (current) use of inhaled steroids; Z68.36 Body mass index [BMI] 36.0-36.9, adult; Z91.19 Patient's noncompliance with other medical treatment and regimen
CPT/HCPCS: 36415; 71045; 71275; 78452; 80048; 83880; 84484; 85025; 85379; 87635; 93005; 93017; 94640; 94799; 96374; 96375; 97802; 99218; 99285; 99406; A9500; Q9967; A4216; G0378; J1940; J2405; J2785; U0003

== ENCOUNTER 2020-04-16 12:50 | Emergency (ER) | payer MEDICARE, SELFPAY ==
[2020-03-04 12:13] VITALS: BMI 36.1
[2020-04-16] VITALS (10 sets, daily range): BP systolic 148–197; BP diastolic 48–106; PULSE 66–80; RESP 16–25; TEMP 36.6–36.8; O2SAT 94–99; BMI 36.9
--- NOTE | 2020-04-16 13:04 | EKG12_ITS ---
Test Reason : Blood Pressure : / mmHG Vent. Rate : 072 BPM Atrial Rate : 072 BPM P-R Int : 156 ms QRS Dur : 100 ms QT Int : 464 ms P-R-T Axes : 039 028 045 degrees QTc Int : 508 ms Normal sinus rhythm Nonspecific ST abnormality Abnormal ECG Confirmed by ARELIS DALE, MIREYA ([id number]), medical editor RENE GARCIA ([id number]) on 04/21/2020 2:22:17 PM Referred By: MASSIMO Confirmed By:MIREYA INFANTE MD
--- NOTE | 2020-04-16 13:08 | ED.VIS.GEN ---
History of Present Illness Chief Complaint: Shortness of Breath Detail of Chief Complaint: Dyspnea, cough and rhinorrhea Informant: Patient Onset: Yesterday Context: Gradual Onset Timing: Continuous Quality: Upper respiratory symptoms Location: Respiratory Current Severity: Mild Maximum Severity: Moderate Worsened by: Dyspnea on exertion past 1 month Relieved by: Nothing Associated Symptoms: Rhinorrhea, congestion and cough Narrative: Patient is a 75-year-old woman with history of COPD who presents with rhinorrhea, congestion, cough and dyspnea. The dyspnea slightly worse than normal. The dyspnea on exertion is not worse than normal. She denies history of PE or DVT. She denies swelling of her legs, discoloration or pain. She denies headache, malaise or fever. She denies ocular, visual or auditory symptoms. She denies loss of taste or smell. She denies exposure to anyone with COVID-19. She states she quit smoking 25 years ago. She does have history of pericardial effusion and CHF. She denies increased orthopnea. She denies PND. Prior similar symptoms: Yes Recent Illness/Hospitalization: No - Past Medical History (1) Anxiety and depression Status: Chronic (2) CAD (coronary artery disease) Status: Chronic (3) COPD (chronic obstructive pulmonary disease) Status: Chronic (4) Dyspnea Status: Chronic (5) Former tobacco use Status: Chronic (6) HLD (hyperlipidemia) Status: Chronic (7) HTN (hypertension) Status: Chronic (8) OELG (obstructive sleep apnea) Status: Chronic Past Medical History - Allergies and Home Meds Allergies/Adverse Reactions: Allergies No Known Allergies Allergy (Verified 04/16/20 12:56) Primary Care Physician: Deon Alberts MD [Primary Care Provider] - Prior records reviewed: Yes Surgical History: - - PCI x2 most recently 10/2017, tonsillectomy, appendectomy, cholecystectomy, hysterectomy. Lives: Alone Smoking Status: Former smoker Alcohol: None Drugs: None - Family History Maternal Family History: Reports: - - Patient notes a maternal family history of heart disease as well as cancer, notes unclear of cancer type, past when she was only 5 years old. Paternal Family History: Reports: - - Patient notes a paternal family history of heart disease as well as cancer, specifically stomach cancer. Review of Systems General: Denies: Chills, Fever, Malaise, Subjective, Sweats Eyes: Denies: Visual changes - bilaterally, Blurred Vision - bilaterally ENT: Denies: Rhinorrhea, Sore throat Cardiovascular: Denies: Chest pain, Palpitations Respiratory: Reports: Dyspnea, Cough, Dyspnea on exertion. Denies: Orthopnea, Paroxysmal nocturnal dyspnea Gastrointestinal: Denies: Abdominal pain, Nausea, Vomiting, Diarrhea, Constipation, Melena, Hematochezia Genitourinary: Denies: Dysuria, Hematuria, Frequency Musculoskeletal: Denies: Myalgias, Arthralgias, Neck pain, Back pain, Swelling, Extremity Pain, -, - Skin: Denies: Rash, Wounds Neurological: Denies: Headache, Weakness, Numbness Psych: Reports: Depression, Anxiety Endocrine: Denies: Polyuria, Polydipsia Hematologic: Denies: Easy bruising Physical Exam Vital Signs/Narrative: Vital Signs Temp Pulse Resp BP Pulse Ox 04/16/20 12:54 98.0 F 78 22 H 183/70 H 97 04/16/20 12:51 98.0 F 79 22 H 183/70 H 98 Inital Vital Signs reviewed: Yes General: Well nourished, Well developed, No Acute Distress Head: Normocephalic, Atraumatic Eyes: Perrl, EOMI. Negative for: Pale conjunctiva, Scleral icterus ENT: Moist mucous membranes, TM's clear, Nasal congestion Neck: Supple, Nontender, No lymphadenopathy, No JVD Cardiovascular: Regular rate, Regular rhythm, No murmurs, Normal S1 Respiratory: No distress, CTA bilaterally, Chest nontender. Negative for: Diminished, Decreased Air Movement Abdomen: Soft, Nontender, Nondistended, Normal bowel sounds, No masses Rectal: - - Minimal stool in the rectal vault. Material that was visualized is brown. There is evidence of external hemorrhoids with inflammation. There is no evidence of active bleeding. Back: Negative for: Nontender, Normal Inspection Extremities: Nontender, No edema Skin: Normal color, No rash. Negative for: Cyanosis, Diaphoresis, Jaundice, No Trauma Neurological: Alert, Oriented x3, Cranial nerves II-XII grossly intact, Normal Strength, Normal Sensation Psychological: Negative for: Normal affect, Normal Mood Diagnostic/Tx/Re-eval Chest X-Ray - ED: 1 View, Read by ED Physician, Normal, Heart, Mediastinum, No Acute Disease, Chronic Changes, - - Chest x-ray interpreted by me at 1433. 09/30/20 14:10 Chest 1 View (Portable) [RAD] Stat Laboratory Results 04/16/20 04/16/20 13:53 13:53 WBC 4.8 RBC 2.99 L Hgb 6.7 L Hct 24.5 L MCV 81.9 MCH 22.4 L MCHC 27.3 L RDW Std Deviation 49.7 H RDW Coeff of Ganesh 16.9 H Plt Count 207 MPV 10.3 Immature Gran % (Auto) 0.600 Neut % (Auto) 75.1 H Lymph % (Auto) 12.2 L [place] % (Auto) 8.6 Eos % (Auto) 2.7 Baso % (Auto) 0.8 Absolute Neuts (auto) 3.6 Absolute Lymphs (auto) 0.58 L Nucleated RBC % 0 Sodium 139 Potassium 3.1 L Chloride 105 Carbon Dioxide 31.0 Anion Gap 3 L BUN 15 Creatinine 0.68 Estim Creat Clear Calc 45.09 Est GFR (MDRD) Af Amer 109 Est GFR (MDRD) Non-Af 90 BUN/Creatinine Ratio 22.0 H Glucose 91 Calcium 8.6 With a normal BUN to creatinine ratio this would indicate this is not an acute blood loss and the fact that her stool is brown. 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 Will obtain chest x-ray blood work and reassess. COVID test was obtained since her symptoms are upper respiratory. Patient prior H&H's have been low. Her H&H is now less than 7 and morning 25 respectively. Since she is symptomatic we will transfuse infuse 1 unit of blood. Suspect her respiratory symptoms are due to acute viral. COVID-19 test is pending. She will receive 1 unit of blood. This may be due to hemorrhoidal bleeding. We will have her follow-up with her primary care physician to be seen by resident care manager rn for EGD and/or colonoscopy. ED Disposition - Plan for ED Patient: Disposition: Home or Assisted Living Diagnosis: Symptomatic anemia, Acute bronchitis Instructions: ED Upper Resp Infec No Abx Tx, ED Bleed UGI Stable Referrals: Deon Alberts MD [Primary Care Provider] -
--- NOTE | 2020-04-16 14:10 | RAD_ITS ---
STUDY: X-RAY CHEST REASON FOR EXAM: Female, 75 years old. DYSPNEA, COUGH, RUNNY NOSE TECHNIQUE: Single AP portable view of the chest. COMPARISON: Comparison is made with prior examination dated 03/04/2020. FINDINGS: EKG electrodes are seen. The lungs are clear and expanded. There is no demonstrated pleural abnormality. There is moderate cardiac enlargement. Normal mediastinum and carrol. Normal visualized pulmonary arteries. There is atherosclerotic calcification of the aortic arch with tortuosity. There are mild degenerative changes of the visualized thoracic spine. Findings suggestive of healed right rib fractures. There is no demonstrated abnormality of the visualized soft tissue structures of the upper abdomen. RAD/Chest 1 View (Portable) IMPRESSION: Cardiomegaly. Electronically Signed: Derrick Miller, at 14:47 EDT , Service support ,
[2020-04-16 14:16] LABS: Absolute Lymphocyte Count 0.58 X10^3/uL (0.83-4.51); Absolute Neutrophil Count 3.6 X10^3/uL (2.0-7.7); Basophil# 0.04 X10^3/uL; Basophil% 0.8 % (0-1); Eosinophil# 0.13 X10^3/uL; Eosinophils% 2.7 % (0-5); Hematocrit 24.5 % (37-47); Hemoglobin 6.7 g/dL (12.0-15.0); Lymphocyte # 0.58 X10^3/ul (4.0); Lymphocyte % 12.2 % (19-41); Mean Corp Hgb Conc 27.3 g/dL (32-36); Mean Corpuscular Hgb 22.4 pg (27.0-32.0); Mean Corpuscular Volume 81.9 fL (81-99); Mean Platelet Vol. 10.3 fl (6.2-12.0); Monocyte# 0.41 X10^3/uL; Monocyte% 8.6 % (0-10); NRBC Flagged by Analyzer 0 % (0-5); Neutrophil # 3.56 X10^3/uL (2.7-7.7); Neutrophil % 75.1 % (47-70); POSITIVE DIFFERENTIAL YES; Platelet Count 207 K/mm3 (150-450); RBC Distribution Width CV 16.9 % (11.6-14.6); RBC Distribution Width SD 49.7 fl (35.1-43.9); Red Blood Count 2.99 M/mm3 (4.2-5.4); White Blood Count 4.8 K/mm3 (4.4-11.0)
[2020-04-16 14:17] LABS: Differential Indicated SCAN CRITERIA MET
[2020-04-16 14:32] LABS: Anion Gap 3 (5-15); BUN 15 mg/dL (7-18); Calcium,Total 8.6 mg/dL (8.5-10.1); Chloride 105 mmol/L (98-107); Creatinine, Serum 0.68 mg/dL (0.55-1.02); EST Glomerular Filtration Rate 90 mL/min (>60); Est Glom Filt Rate - Afr Amer 109 mL/min (>60); Estimated Creatinine Clearance 45.09 ml/min; Glucose 91 mg/dL (74-106); Potassium 3.1 mmol/L (3.5-5.1); Sodium Level 139 mmol/L (136-145)
[2020-04-16 14:45] LABS: Lactic Acid 0.9 mmol/L (0.4-1.9)
[2020-04-16] MEDS: Acetaminophen 325 MG Tablet 650 MG PO (16:36)
[2020-04-16] MEDS: DiphenhydrAMINE 50 MG/ML Syringe 25 MG IV (17:09)
[2020-04-16] MEDS: Metoclopramide 10 MG/2 ML Vial IV (17:13)
[2020-04-16] MEDS: LORazepam 0.5 MG Tablet PO (18:50)
--- NOTE | 2020-04-16 19:36 | ED.RN ---
PT IS REFUSING 2ND BAG OF BLOOD PRODUCTS. NEW MD WILL BE NOTIFIED.
--- NOTE | 2020-04-16 20:26 | ED.RN ---
RECEIVED APPROVAL FROM YURIY MCCARTY AND [facility] FOR PT NOT TO GET 2ND U NIT OF BLOOD. PT UNDERSTANDS TO F/U WITH PCP FOR POC AND POSSIBLE 2ND UNIT DELIVERED OUTPATIENT.
== END 2020-04-16 20:24 | disposition home or self-care (01) ==
PROVIDERS: Emergency Provider Emergency Medicine; PCP Family Medicine
DX: J44.0 Chronic obstructive pulmonary disease with (acute) lower respiratory infection (principal); J20.9 Acute bronchitis, unspecified; D64.9 Anemia, unspecified; Z87.891 Personal history of nicotine dependence; I11.0 Hypertensive heart disease with heart failure; I50.9 Heart failure, unspecified; E78.5 Hyperlipidemia, unspecified; I25.10 Atherosclerotic heart disease of native coronary artery without angina pectoris
CPT/HCPCS: 36430; 71045; 80048; 83605; 85025; 86850; 86900; 86901; 86920; 86922; 87635; 93005; 96372; 96374; 96375; 99285; P9016; A4216; U0003

== ENCOUNTER 2020-04-29 11:07 | Emergency (ER) | payer MEDICARE, SELFPAY ==
[2020-04-16 12:51] VITALS: BMI 36.9
[2020-04-29] VITALS (9 sets, daily range): BP systolic 124–160; BP diastolic 52–86; PULSE 52–69; RESP 16–25; TEMP 36.1–36.6; O2SAT 91–98; BMI 35.4
--- NOTE | 2020-04-29 11:36 | EKG12_ITS ---
Test Reason : SOB Blood Pressure : / mmHG Vent. Rate : 054 BPM Atrial Rate : 054 BPM P-R Int : 180 ms QRS Dur : 100 ms QT Int : 514 ms P-R-T Axes : 033 042 053 degrees QTc Int : 487 ms Sinus bradycardia Otherwise normal ECG Confirmed by RACHEL DALE, NANI ([id number]), business editor RENE GARCIA ([id number]) on 05/05/2020 8:45:02 A M Referred By: BING Confirmed By:JOEY RAMOS MD
--- NOTE | 2020-04-29 11:36 | RAD_ITS ---
STUDY: X-RAY CHEST REASON FOR EXAM: Female, 75 years old. increasing SOB TECHNIQUE: Single AP portable view of the chest. COMPARISON: 04/16/2020. FINDINGS: The lungs are clear and expanded. There is no demonstrated pleural abnormality. There is moderate cardiac enlargement. Normal mediastinum and carrol. Normal visualized pulmonary arteries. Normal visualized aortic arch and descending thoracic aorta. There are diffuse degenerative changes of the visualized thoracic spine. Normal visualized ribs, clavicles, and shoulders. There is no demonstrated abnormality of the visualized soft tissue structures of the upper abdomen. RAD/Chest 1 View (Portable) IMPRESSION: Cardiomegaly. No acute abnormality. Electronically Signed: Timothy Yancey MD at 12:44 EDT , Service support ,
--- NOTE | 2020-04-29 11:38 | ED.VIS.DYS ---
History of Present Illness Chief Complaint: Shortness of Breath Informant: Patient Onset: Weeks - 2+ Activity at onset: - - gradual, worsening Timing: Continuous Quality: - - short of breath Current Severity: Moderate Maximum Severity: Severe Worsened by: Coughing, Exertion Relieved by: Nothing. Not Relieved By: Albuterol, Oxygen Associated Symptoms: Cough, Yellow sputum - occasional Chest Pain: Continuous, Pressure - substernal, unk duration Narrative: Patient states she was here 2 weeks ago for similar symptoms, it appears that she was transfused with a unit of packed red blood cells for symptomatic anemia, and discharged home. She was not placed on any medications. She states for the past 2 weeks she has continued to have dyspnea, when asked when she got worse she cannot tell me, stating that it has been this bad the entire time. She called her doctor today, she has not seen anybody in follow-up yet, and was advised to come to the ER if she is having a much trouble. She states she has been having chest pressure she does not recall how long that has been there. She denies any swelling in her legs or other new symptoms. No fevers or chills, she was tested for coronavirus 2 weeks ago and the test returned negative and she has had no contact with anyone with COVID-19 that she knows of since then. She does not wear oxygen at home for her COPD. She states she has that and congestive heart failure, she has been compliant with her medications which include Lasix 40 mg twice daily. - Past Medical History (1) COPD (chronic obstructive pulmonary disease) Status: Chronic (2) Chronic respiratory failure with hypoxia Status: Chronic (3) HTN (hypertension) Status: Chronic (4) HLD (hyperlipidemia) Status: Chronic (5) CAD (coronary artery disease) Status: Chronic (6) OLEG (obstructive sleep apnea) Status: Chronic (7) Anxiety and depression Status: Chronic Past Medical History - Allergies and Home Meds Allergies/Adverse Reactions: Allergies No Known Allergies Allergy (Verified 04/29/20 11:11) Primary Care Physician: Deon Alberts MD [Primary Care Provider] - Surgical History: - - PCI x2 most recently 10/2017, tonsillectomy, appendectomy, cholecystectomy, hysterectomy. Smoking Status: Former smoker - Family History Maternal Family History: Reports: - - Patient notes a maternal family history of heart disease as well as cancer, notes unclear of cancer type, past when she was only 5 years old. Paternal Family History: Reports: - - Patient notes a paternal family history of heart disease as well as cancer, specifically stomach cancer. Review of Systems General: Reports: Malaise. Denies: Chills, Fever, Sweats Eyes: Denies: Visual changes - bilaterally, Diplopia ENT: Denies: Rhinorrhea, Sore throat Cardiovascular: Reports: Chest pain. Denies: Palpitations Respiratory: Reports: Dyspnea, Cough, Sputum, Dyspnea on exertion Gastrointestinal: Reports: Diarrhea. Denies: Abdominal pain, Nausea, Vomiting, Melena, Hematochezia Genitourinary: Denies: Dysuria, Hematuria, Frequency Musculoskeletal: Denies: Back pain, Swelling, Extremity Pain Skin: Denies: Rash, Wounds Neurological: Denies: Headache, Weakness, Numbness Physical Exam Vital Signs/Narrative: Vital Signs Temp Pulse Resp BP Pulse Ox 04/29/20 11:11 97.8 F 52 L 23 H 124/86 H 95 04/29/20 11:08 97.8 F 52 L 23 H 124/86 H 95 Inital Vital Signs reviewed: Yes General: Well nourished, Well developed, Acute Distress - mild, resp; speaking in 5-7 word sentences Head: Normocephalic, Atraumatic Eyes: Perrl, EOMI ENT: Moist mucous membranes, No rhinorrhea Neck: Supple, Nontender, No lymphadenopathy, No JVD Cardiovascular: Regular rate, Regular rhythm, Murmur - systolic Respiratory: No distress, Chest nontender, Diminished - throughout, - - prolonged expiratory phase. Negative for: Rales, Rhonchi, Wheezing Abdomen: Soft, Nontender, Nondistended, Normal bowel sounds Back: Nontender, Normal Inspection. Negative for: CVA tenderness Extremities: Nontender, No edema. Negative for: Calf Tenderness Skin: Normal color, No rash, No Trauma Neurological: Alert, Oriented x3, Cranial nerves II-XII grossly intact, Normal Strength, Normal Sensation Psychological: Normal affect, Normal Mood Diagnostic/Tx/Re-eval Impressions Chest X-Ray 04/29/20 11:36 IMPRESSION: Cardiomegaly. No acute abnormality. Electronically Signed: Timothy Yancey MD at 12:44 EDT , Service support , 04/29/20 11:36 Chest 1 View (Portable) [RAD] Stat Laboratory Results 04/29/20 04/29/20 04/29/20 11:50 11:50 11:50 WBC 6.0 RBC 3.43 L Hgb 8.0 L Hct 28.1 L MCV 81.9 MCH 23.3 L MCHC 28.5 L RDW Std Deviation 50.2 H RDW Coeff of Ganesh 17.0 H Plt Count 273 MPV 10.7 Immature Gran % (Auto) 0.800 Neut % (Auto) 74.3 H Lymph % (Auto) 10.2 L [place] % (Auto) 9.3 Eos % (Auto) 4.2 Baso % (Auto) 1.2 H Absolute Neuts (auto) 4.5 Absolute Lymphs (auto) 0.61 L Nucleated RBC % 0 Sodium 140 Potassium 3.1 L Chloride 106 Carbon Dioxide 28.0 Anion Gap 6 BUN 15 Creatinine 0.95 Estim Creat Clear Calc 47.46 Est GFR (MDRD) Af Amer 74 Est GFR (MDRD) Non-Af 62 BUN/Creatinine Ratio 15.8 Glucose 88 Calcium 8.5 Troponin I < 0.015 B-Natriuretic Peptide 333.5 H - Rhythm Strip Rhythm Strip: Sinus Rhythm Rate: 54 Ectopy: None - EKG Initial EKG Interpretation: Sinus Rhythm, No Acute Injury Pattern Prior: Unchanged Treatment - Dyspnea: Albuterol, Atrovent, Steroid Repeat Evaluation: Improved - Medical Decision Making Patient is improved. Unable to discharge her with the plan to treat her as a COPD exacerbation, she stated that her pulmonary doctor told her it is not your lungs, it must be your heart. Her BNP is in the 300s which is inconsistent with acute decompensated congestive heart failure in context of a negative chest x-ray and symptoms that drastically improved with aerosols. In looking at her echocardiogram from earlier this year, she had some diastolic failure and a couple of mild leaky valves but nothing significant. I discussed with ABHISHEK Ferrera at Dr. Nj's office, and it appears that she had fairly unremarkable pulmonary function test, however they do believe that she has COPD and agrees with treating her as a COPD exacerbation and they will be happy to see her in the next week or 2 closer to the conclusion of her prednisone taper which we started here. Patient is comfortable with that plan. Of note, at one point her breathing became worse and her pulse ox went down to 86-88%, she was given another aerosol which helped again, and her pulse ox came back up, she does have oxygen at home that she uses at night and she was advised to use it for the next day or 2 until she is feeling better with the prednisone. ED Disposition - Plan for ED Patient: Disposition: Home or Assisted Living Diagnosis: Chronic respiratory failure with hypoxia, COPD with exacerbation Instructions: ED COPD Flare Prescriptions: Doxycycline 100 mg PO BID #20 cap Transmission Status: Pending to [id number] Prednisone 10 mg PO UD #33 tab Transmission Status: Pending to [id number] Referrals: Deon Alberts MD [Primary Care Provider] - Leonard Nj MD [NON-STAFF] - 1-2 Weeks (call for appt) Additional Instructions: Wear your oxygen at home 2 L all day and night for the next day or 2.
[2020-04-29] MEDS: Ipratropium/Albuterol Sulfate 3 ML AMPUL.NEB INHALATION (11:53)
[2020-04-29] MEDS: MethylPREDNISolone 125 MG/2 ML Vial IV (11:55)
[2020-04-29] MEDS: Furosemide 40 MG/4 ML Vial IV (11:55)
[2020-04-29] MEDS: Albuterol 2.5 MG/3 ML VIAL.NEB. INHALATION ×4 (11:57→15:11)
[2020-04-29 12:18] LABS: Absolute Lymphocyte Count 0.61 X10^3/uL (0.83-4.51); Absolute Neutrophil Count 4.5 X10^3/uL (2.0-7.7); Basophil# 0.07 X10^3/uL; Basophil% 1.2 % (0-1); Eosinophil# 0.25 X10^3/uL; Eosinophils% 4.2 % (0-5); Hematocrit 28.1 % (37-47); Lymphocyte # 0.61 X10^3/ul (4.0); Lymphocyte % 10.2 % (19-41); Mean Corp Hgb Conc 28.5 g/dL (32-36); Mean Corpuscular Hgb 23.3 pg (27.0-32.0); Mean Corpuscular Volume 81.9 fL (81-99); Mean Platelet Vol. 10.7 fl (6.2-12.0); Monocyte# 0.56 X10^3/uL; Monocyte% 9.3 % (0-10); NRBC Flagged by Analyzer 0 % (0-5); Neutrophil # 4.46 X10^3/uL (2.7-7.7); Neutrophil % 74.3 % (47-70); Platelet Count 273 K/mm3 (150-450); RBC Distribution Width SD 50.2 fl (35.1-43.9); Red Blood Count 3.43 M/mm3 (4.2-5.4)
[2020-04-29 12:30] LABS: Anion Gap 6 (5-15); BUN 15 mg/dL (7-18); BUN/Creat Ratio 15.8 RATIO (10-20); Calcium,Total 8.5 mg/dL (8.5-10.1); Chloride 106 mmol/L (98-107); Creatinine, Serum 0.95 mg/dL (0.55-1.02); EST Glomerular Filtration Rate 62 mL/min (>60); Est Glom Filt Rate - Afr Amer 74 mL/min (>60); Estimated Creatinine Clearance 47.46 ml/min; Glucose 88 mg/dL (74-106); Potassium 3.1 mmol/L (3.5-5.1); Sodium Level 140 mmol/L (136-145)
[2020-04-29 12:47] LABS: BNP,B-Type NATRIURETIC PEPTIDE 333.5 pg/mL (0-100)
[2020-04-29] MEDS: Metoclopramide 10 MG/2 ML Vial 5 MG IV (14:06)
== END 2020-04-29 16:09 | disposition home or self-care (01) ==
PROVIDERS: Emergency Provider Emergency Medicine; PCP Family Medicine
DX: J44.1 Chronic obstructive pulmonary disease with (acute) exacerbation (principal); J96.11 Chronic respiratory failure with hypoxia; I11.0 Hypertensive heart disease with heart failure; I50.9 Heart failure, unspecified; E78.5 Hyperlipidemia, unspecified; I25.10 Atherosclerotic heart disease of native coronary artery without angina pectoris; Z79.899 Other long term (current) drug therapy; Z87.891 Personal history of nicotine dependence
CPT/HCPCS: 71045; 80048; 83880; 84484; 85025; 93005; 94640; 96374; 96375; 99283; A4216; J1940